=== PATIENT | female | born 1955 | race African-American/Black ===

== ENCOUNTER 2017-08-10 14:11 | Inpatient (IN) | payer MEDICAID ==
[~2017-08-10] VITALS: Ht 152.4 cm; Wt 39.9 kg
[2017-08-10 14:20] VITALS: BP 124/70
--- NOTE | 2017-08-10 14:25 | Emergency Room Report ---
History of Present Illness General Chief Complaint: Dyspnea/Respdistress Source: Patient, EMS Present Illness HPI Patient presents with complaints of shortness of breath Patient reports that she usually uses an oxygen concentrator She was at a facility and reports that someone pulled the plug on the machine Patient became extremely short of breath She was able to get the concentrator into the car however became more short of breath and is brought in by paramedics Patient has long-standing COPD and is on concentrator oxygen on a regular basis denies any chest pain She feels that her breathing is better now Allergies: Coded Allergies: No Known Allergies (Unverified , 08/10/17) Patient History Past Medical History: see triage record Pertinent Family History: none Reviewed Nursing Documentation: PMH: Agreed; PSxH: Agreed Nursing Documentation-PMH Past Medical History: No History, Except For Hx Hypertension: Yes Hx COPD: Yes Review of Systems All Other Systems: negative except mentioned in HPI Physical Exam Vital Signs Date Time Temp Pulse Resp B/P (MAP) Pulse Ox O2 Delivery O2 Flow Rate FiO2 08/10/17 14:06 98.2 60 18 124/70 97 Nasal Cannula 2.0 98.2 Sp02 EP Interpretation: reviewed, normal General Appearance: mild distress - Appeared mildly short of breath Head: normocephalic, atraumatic Eyes: bilateral eye PERRL, bilateral eye EOMI ENT: normal pharynx, no angioedema Neck: supple Respiratory: crackles - Both lower lobes mildly tachypneic Cardiovascular #1: regular rate, rhythm Gastrointestinal: non tender, soft Musculoskeletal: normal inspection Neurologic: alert, oriented x3, responsive Skin: other - Dependent edema bilaterally Lymphatic: no adenopathy Medical Decision Making Diagnostic Impression: Primary Impression: COPD exacerbation ER Course Patient is a fairly complex patient with multiple differential to consideration including but not limited to cardiac cardiopulmonary and vascular emergencies Patient's ABG shows a mildly lower pH Patient is on low-dose oxygen and doing well with the pulse ox oximetry Patient provided with steroids and breathing treatments Continues to do well is asking to eat Patient's repeat ABG shows fully compensated ABG with mildly elevated CO2 compared to previous however the pH is compensated appropriately Patient continues admission at this time awake alert Showing signs of acute COPD exacerbation Labs Test 08/10/17 14:40 08/10/17 14:43 08/10/17 19:06 Arterial Blood pH 7.332 (7.350-7.450) 7.350 (7.350-7.450) Arterial Blood Partial Pressure CO2 71.2 mmHg (35.0-45.0) 77.0 mmHg (35.0-45.0) Arterial Blood Partial Pressure O2 65.9 mmHg (75.0-100.0) 67.9 mmHg (75.0-100.0) Arterial Blood HCO3 36.9 mmol/L (22.0-26.0) 42.0 mmol/L (22.0-26.0) Arterial Blood Oxygen Saturation 91.1 % (92.0-98.0) 92.0 % (92.0-98.0) Arterial Blood Base Excess 9.1 14.2 Adán Test Positive Positive White Blood Count 9.0 K/UL (4.8-10.8) Red Blood Count 4.39 M/UL (4.20-5.40) Hemoglobin 10.2 G/DL (12.0-16.0) Hematocrit 35.8 % (37.0-47.0) Mean Corpuscular Volume 82 FL (80-99) Mean Corpuscular Hemoglobin 23.3 PG (27.0-31.0) Mean Corpuscular Hemoglobin Concent 28.6 G/DL (32.0-36.0) Red Cell Distribution Width 17.6 % (11.6-14.8) Platelet Count 405 K/UL (150-450) Mean Platelet Volume 7.6 FL (6.5-10.1) Neutrophils (%) (Auto) % (45.0-75.0) Lymphocytes (%) (Auto) % (20.0-45.0) Monocytes (%) (Auto) % (1.0-10.0) Eosinophils (%) (Auto) % (0.0-3.0) Basophils (%) (Auto) % (0.0-2.0) Differential Total Cells Counted 100 Neutrophils % (Manual) 91 % (45-75) Lymphocytes % (Manual) 5 % (20-45) Monocytes % (Manual) 3 % (1-10) Eosinophils % (Manual) 0 % (0-3) Basophils % (Manual) 1 % (0-2) Band Neutrophils 0 % (0-8) Platelet Estimate Adequate Platelet Morphology Normal Polychromasia 1+ Hypochromasia 1+ Anisocytosis 1+ Sodium Level 145 MMOL/L (136-145) Potassium Level 4.9 MMOL/L (3.5-5.1) Chloride Level 105 MMOL/L (98-107) Carbon Dioxide Level 37 MMOL/L (21-32) Anion Gap 3 mmol/L (5-15) Blood Urea Nitrogen 22 mg/dL (7-18) Creatinine 0.6 MG/DL (0.55-1.30) Estimat Glomerular Filtration Rate > 60 mL/min (>60) Glucose Level 98 MG/DL (74-106) Calcium Level 9.4 MG/DL (8.5-10.1) Total Bilirubin 0.4 MG/DL (0.2-1.0) Aspartate Amino Transf (AST/SGOT) 44 U/L (15-37) Alanine Aminotransferase (ALT/SGPT) 51 U/L (12-78) Alkaline Phosphatase 180 U/L (46-116) Total Creatine Kinase 157 U/L (26-308) Creatine Kinase MB 7.8 NG/ML (0.0-3.6) Creatine Kinase MB Relative Index 4.9 Troponin I 0.011 ng/mL (0.000-0.056) Pro-B-Type Natriuretic Peptide 618 pg/mL (0-125) Total Protein 7.2 G/DL (6.4-8.2) Albumin 3.9 G/DL (3.4-5.0) Globulin 3.3 g/dL Albumin/Globulin Ratio 1.2 (1.0-2.7) Rhythm Strip Diag. Results EP Interpretation: yes Rate: 66 Rhythm: NSR, no PVC's, no ectopy Chest X-Ray Diagnostic Results Chest X-Ray Diagnostic Results : Chest X-Ray Ordered: Yes # of Views/Limited/Complete: 1 View Indication: Shortness of Breath EP Interpretation: Yes Interpretation: no consolidation, no effusion, no pneumothorax, no acute cardiopulmonary disease - Hyperexpansion Impression: No acute disease - Chronic COPD Electronically Signed by: Eladio Ann DO Last Vital Signs Date Time Temp Pulse Resp B/P (MAP) Pulse Ox O2 Delivery O2 Flow Rate FiO2 08/10/17 14:20 60 18 Nasal Cannula 2.0 08/10/17 14:20 98.2 124/70 97 98.2 Status: improved Disposition: ADMITTED INPATIENT Condition: Serious Eladio Ann DO Aug 10, 2017 14:25
[2017-08-10 15:28] LABS: HEMATOCRIT 35.8 % (37.0-47.0); HEMOGLOBIN 10.2 G/DL (12.0-16.0); MEAN CORPUSCULAR VOLUME 82 FL (80-99); PLATELET COUNT 405 K/UL (150-450); RED BLOOD COUNT 4.39 M/UL (4.20-5.40); RED CELL DISTRIBUTION WIDTH 17.6 % (11.6-14.8)
[2017-08-10 15:42] LABS: ANION GAP 3 mmol/L (5-15); BLOOD UREA NITROGEN 22 mg/dL (7-18); CALCIUM 9.4 MG/DL (8.5-10.1); CARBON DIOXIDE 37 MMOL/L (21-32); CHLORIDE 105 MMOL/L (98-107); CREATININE 0.6 MG/DL (0.55-1.30); POTASSIUM 4.9 MMOL/L (3.5-5.1); SODIUM 145 MMOL/L (136-145)
[2017-08-10 16:01] LABS: ALANINE AMINOTRANSFERASE 51 U/L (12-78); ALBUMIN 3.9 G/DL (3.4-5.0); ALBUMIN/GLOBULIN RATIO 1.2 (1.0-2.7); ALKALINE PHOSPHATASE 180 U/L (46-116); ASPARTATE AMINO TRANSFERASE 44 U/L (15-37); BILIRUBIN,TOTAL 0.4 MG/DL (0.2-1.0); CKMB 7.8 NG/ML (0.0-3.6); CREATINE KINASE 157 U/L (26-308)
--- NOTE | 2017-08-10 16:37 | Diagnostic Imaging Report ---
Indication: Hours of breath Technique: One view of the chest Comparison: none Findings: The lungs and pleural spaces are clear. Heart size is normal. There are bilateral basilar atelectatic changes Impression: No acute process
[2017-08-10] MEDS ORDERED: Enoxaparin 40mg Inj SUBQ SCH (18:00)
--- NOTE | 2017-08-10 18:30 | History and Physical Report ---
DATE OF ADMISSION: 08/10/2017 REASON FOR ADMISSION: 1. Shortness of breath. 2. Chronic obstructive pulmonary disease exacerbation. HISTORY OF PRESENT ILLNESS: The patient is a pleasant, 62-year-old, female, being admitted for further evaluation and care of shortness of breath. She is somnolent, difficult to arouse, speaks in half sentences, and slowly falls asleep. It seems that the patient usually uses an oxygen concentrator. She stays at a facility where someone had pulled the plug on the machine. She became shortly short of breath. She was able to get the concentrate into the car, however, became more short of breath and was brought in by paramedics for further evaluation and care. She has long-standing COPD and is on concentrator oxygen on a regular basis. She is in no overt distress, but somnolent and difficult to arouse, but can be aroused and speaks in slow conversations. No nausea, vomiting, or diarrhea. PAST MEDICAL HISTORY: 1. COPD. 2. Unable to ascertain further as patient is very somnolent. ALLERGIES: No known drug allergies. FAMILY AND SURGICAL HISTORY: Unable to obtain currently as the patient is somnolent. REVIEW OF SYSTEMS: At this time could not obtain as the patient is somnolent and difficult to maintain arousal state. PHYSICAL EXAMINATION: VITAL SIGNS: Blood pressure 124/70, pulse ox 97% on 2 liters nasal cannula. Pulse rate is 60, and temperature 98.2. GENERAL: The patient arousable, but very sedated. HEENT: Extraocular muscles intact. No lymphadenopathy noted. CARDIOVASCULAR: S1 and S2. No rubs or gallops. PULMONARY: Mild upper rhonchi. Fair air movement in all meadows. ABDOMINAL: Nondistended and nontender. EXTREMITIES: 2+ edema, right side greater than left side. LABORATORY AND DIAGNOSTIC DATA: Labs dated 08/10/2017, sodium 145, potassium 4.9, chloride 105, bicarb 37, BUN 22, creatinine 0.6, and calcium 9.4. Troponin 0.011. Hemoglobin 10.2, white cell count 9, platelet count 405. ABG with pH of 7.33, pCO2 of 72, PO2 of 66, HCO3 of 37, O2 saturation of 91. ASSESSMENT AND PLAN: 1. Chronic obstructive pulmonary disease exacerbation with hypercapnic respiratory failure, pCO2 of 71. At this time, BiPAP will be placed. The patient will be admitted to the [facility] and Pulmonary consultation will be placed. Nebulizers will be initiated and further management through Pulmonary Critical Care. 2. Deep venous thrombosis prophylaxis with Lovenox. 3. Asymmetrical lower extremity edema. Ultrasound of her right lower extremity to rule out deep venous thrombosis. 4. We will have to search for home medications and further evaluate the patient's past medical history once patient is more arousable and her medicines can be reconciled in the emergency room. Alvarado Grimm MD DR: JASON JOB#: [id number] CC:
[2017-08-10 18:46] VITALS: BP 108/64
[2017-08-10 19:13] VITALS: BP 150/76
[2017-08-10] MEDS ORDERED: Solu-MEDROL 125mg Inj IVP ONE (19:30)
[2017-08-10] MEDS ORDERED: Albuterol ud Inhalation HHN ONE (19:30)
[2017-08-10 20:33] VITALS: BP 153/69
[2017-08-10] MEDS ORDERED: dilTIAZem HCl CD 120mg cap ORAL ONE (20:45)
[2017-08-10] MEDS: Docusate 100mg cap ORAL SCH (21:00)
[2017-08-10] MEDS ORDERED: dilTIAZem HCl 50mg/10ml Inj IVP ONE (21:13)
[2017-08-10] MEDS ORDERED: dilTIAZem HCl 25mg/5ml Inj IVP ONE (21:15)
[2017-08-10] MEDS ORDERED: Albuterol/Ipratropium 3ml neb HHN SCH (23:00)
[2017-08-10] MEDS ORDERED: Solu-MEDROL 125mg Inj IVP SCH (23:45)
[2017-08-11] VITALS: BP 143/86
[2017-08-11 04:00] VITALS: BP 135/81
[2017-08-11 04:46] LABS: ANION GAP 4 mmol/L (5-15); BLOOD UREA NITROGEN 19 mg/dL (7-18); CALCIUM 8.9 MG/DL (8.5-10.1); CARBON DIOXIDE 36 MMOL/L (21-32); CHLORIDE 105 MMOL/L (98-107); CREATININE 0.8 MG/DL (0.55-1.30); POTASSIUM 4.3 MMOL/L (3.5-5.1); SODIUM 145 MMOL/L (136-145)
[2017-08-11 04:50] LABS: ALANINE AMINOTRANSFERASE 53 U/L (12-78); ALBUMIN 3.6 G/DL (3.4-5.0); ALBUMIN/GLOBULIN RATIO 1.1 (1.0-2.7); ALKALINE PHOSPHATASE 231 U/L (46-116); ASPARTATE AMINO TRANSFERASE 37 U/L (15-37); BILIRUBIN,TOTAL 0.4 MG/DL (0.2-1.0); HEMATOCRIT 34.6 % (37.0-47.0); HEMOGLOBIN 9.9 G/DL (12.0-16.0); MEAN CORPUSCULAR VOLUME 81 FL (80-99); PLATELET COUNT 399 K/UL (150-450); RED BLOOD COUNT 4.28 M/UL (4.20-5.40); RED CELL DISTRIBUTION WIDTH 17.7 % (11.6-14.8); WHITE BLOOD COUNT 7.5 K/UL (4.8-10.8)
[2017-08-11 05:06] LABS: % IRON SATURATION 4 % (15-50); IRON 16 ug/dL (50-175); TOTAL IRON BINDING CAPACITY 385 ug/dL (250-450)
[2017-08-11 05:08] LABS: LACTATE DEHYDROGENASE 379 U/L (81-234)
[2017-08-11 05:17] LABS: INR 0.9 (0.9-1.1)
[2017-08-11] MEDS ORDERED: NORCO 5-325 TA1 EACH ORAL (06:57)
[2017-08-11] MEDS ORDERED: LEVAQUIN750 MG ORAL (06:57)
[2017-08-11] MEDS ORDERED: SPIRIVA18 MCG INH (06:57)
[2017-08-11] MEDS ORDERED: ADVAIR HFA 45-212 GM INH (06:57)
[2017-08-11] MEDS ORDERED: CARDIZEM30 M1 PO (06:57)
[2017-08-11 08:00] VITALS: BP 128/74
--- NOTE | 2017-08-11 08:21 | Nephrology Progress Note ---
Assessment/Plan Assessment/Plan 1. Hypercapneic Resp Failure - likley due to opiates. - PCO2 77, patient declined BiPAP/NIPPV - much more awake today. Off [place]'s 2. COPD- patient declined inhalers, per Pulm eval and mgmt 3. HTN- restart Cardizem CD 4. DVT prophylaxsis with lovenox 5. Disposition- consult pillowcase maker for DC tomorrow with Home Health Subjective Date patient seen: Aug 11, 2017 Time patient seen: 08:17 ROS Limited/Unobtainable: No Respiratory: Reports: shortness of breath Allergies: Coded Allergies: No Known Allergies (Unverified , 08/10/17) All Systems: reviewed and negative except above Subjective Patient declined BiPAp and inhaler therapy Objective Last 24 Hour Vital Signs Date Time Temp Pulse Resp B/P (MAP) Pulse Ox O2 Delivery O2 Flow Rate FiO2 08/11/17 04:00 117 08/11/17 04:00 99.2 118 20 135/81 92 Nasal Cannula 3.0 99.2 08/11/17 00:00 99.5 120 32 143/86 93 Nasal Cannula 3.0 99.5 08/11/17 00:00 120 08/10/17 23:30 112 24 93 Nasal Cannula 2.0 28 08/10/17 23:30 Simple Mask 08/10/17 22:21 112 08/10/17 22:00 Nasal Cannula 2.0 28 08/10/17 22:00 94 Nasal Cannula 2.0 28 08/10/17 21:52 96 24 139/76 93 Nasal Cannula 1.5 08/10/17 21:14 100 152/73 08/10/17 20:50 109 173/97 08/10/17 20:33 112 19 153/69 92 Nasal Cannula 1.5 08/10/17 19:13 112 22 150/76 97 Nasal Cannula 2.0 08/10/17 18:46 97.6 102 20 108/64 95 Nasal Cannula 2.0 97.6 08/10/17 14:20 60 18 Nasal Cannula 2.0 08/10/17 14:20 98.2 82 18 124/70 97 Nasal Cannula 2.0 98.2 08/10/17 14:06 98.2 60 18 124/70 97 Nasal Cannula 2.0 98.2 Intake and Output 08/10/17 08/11/17 19:00 07:00 Intake Total 1243.75 ml Output Total 0 ml 450 ml Balance 0 ml 793.75 ml Intake Oral 700 ml IV Total 543.75 ml Output Urine Total 0 ml 450 ml # Voids 2 # Bowel Movements 3 Laboratory Tests 08/10/17 14:40: Arterial Blood pH 7.332L, Arterial Blood Partial Pressure CO2 71.2*H, Arterial Blood Partial Pressure O2 65.9L, Arterial Blood HCO3 36.9H, Arterial Blood Oxygen Saturation 91.1L, Arterial Blood Base Excess 9.1, Adán Test Positive 08/10/17 14:43: White Blood Count 9.0, Red Blood Count 4.39, Hemoglobin 10.2L, Hematocrit 35.8L , Mean Corpuscular Volume 82, Mean Corpuscular Hemoglobin 23.3L, Mean Corpuscular Hemoglobin Concent 28.6L, Red Cell Distribution Width 17.6H, Platelet Count 405, Mean Platelet Volume 7.6, Neutrophils (%) (Auto) , Lymphocytes (%) (Auto) , Monocytes (%) (Auto) , Eosinophils (%) (Auto) , Basophils (%) (Auto) , Differential Total Cells Counted 100, Neutrophils % ( Manual) 91H, Lymphocytes % (Manual) 5L, Monocytes % (Manual) 3, Eosinophils % ( Manual) 0, Basophils % (Manual) 1, Band Neutrophils 0, Platelet Estimate Adequate, Platelet Morphology Normal, Polychromasia 1+, Hypochromasia 1+, Anisocytosis 1+, Sodium Level 145, Potassium Level 4.9, Chloride Level 105, Carbon Dioxide Level 37H, Anion Gap 3L, Blood Urea Nitrogen 22H, Creatinine 0.6 , Estimat Glomerular Filtration Rate > 60, Glucose Level 98, Calcium Level 9.4, Total Bilirubin 0.4, Aspartate Amino Transf (AST/SGOT) 44H, Alanine Aminotransferase (ALT/SGPT) 51, Alkaline Phosphatase 180H, Total Creatine Kinase 157, Creatine Kinase MB 7.8H, Creatine Kinase MB Relative Index 4.9, Troponin I 0.011, Pro-B-Type Natriuretic Peptide 618H, Total Protein 7.2, Albumin 3.9, Globulin 3.3, Albumin/Globulin Ratio 1.2 08/10/17 19:06: Arterial Blood pH 7.350, Arterial Blood Partial Pressure CO2 77.0*H, Arterial Blood Partial Pressure O2 67.9L, Arterial Blood HCO3 42.0H, Arterial Blood Oxygen Saturation 92.0, Arterial Blood Base Excess 14.2, Adán Test Positive 08/11/17 04:00: White Blood Count 7.5, Red Blood Count 4.28, Hemoglobin 9.9L, Hematocrit 34.6L, Mean Corpuscular Volume 81, Mean Corpuscular Hemoglobin 23.1L, Mean Corpuscular Hemoglobin Concent 28.6L, Red Cell Distribution Width 17.7H, Platelet Count 399 , Mean Platelet Volume 7.4, Neutrophils (%) (Auto) , Lymphocytes (%) (Auto) , Monocytes (%) (Auto) , Eosinophils (%) (Auto) , Basophils (%) (Auto) , Sodium Level 145, Potassium Level 4.3, Chloride Level 105, Carbon Dioxide Level 36H, Anion Gap 4L, Blood Urea Nitrogen 19H, Creatinine 0.8, Estimat Glomerular Filtration Rate > 60, Glucose Level 139H, Calcium Level 8.9, Total Bilirubin 0.4 , Aspartate Amino Transf (AST/SGOT) 37, Alanine Aminotransferase (ALT/SGPT) 53, Alkaline Phosphatase 231H, Pro-B-Type Natriuretic Peptide 574H, Total Protein 6.9, Albumin 3.6, Globulin 3.3, Albumin/Globulin Ratio 1.1, Erythrocyte Sedimentation Rate 10, Reticulocyte Count [Pending], Prothrombin Time 9.9, Prothromb Time International Ratio 0.9, Activated Partial Thromboplast Time 32, Iron Level 16L, Total Iron Binding Capacity 385, Percent Iron Saturation 4L, Unsaturated Iron Binding 369H, Lactate Dehydrogenase 379H, Carcinoembryonic Antigen [Pending], Vitamin B12 Level 941, Folate 14.6, Urine Opiates Screen PositiveH, Urine Barbiturates Screen Negative, Phencyclidine (PCP) Screen Negative, Urine Amphetamines Screen Negative, Urine Benzodiazepines Screen Negative, Urine Cocaine Screen Negative, Urine Marijuana (THC) Screen Negative Height (Feet): 5 Height (Inches): 0.00 Weight (Pounds): 174 General Appearance: no apparent distress, alert EENT: PERRL/EOMI, normal ENT inspection Neck: normal alignment, supple Cardiovascular: regular rhythm, tachycardia Respiratory/Chest: expiratory wheezing Abdomen: non tender, soft Edema: no edema noted Arm (L), no edema noted Arm (R), no edema noted Leg (L), no edema noted Leg (R), no edema noted Pedal (L), no edema noted Pedal (R), no edema noted Generalized Alvarado Grimm M.D. Aug 11, 2017 08:21
[2017-08-11] MEDS: Docusate 100mg cap ORAL SCH ×2 (08:55→21:00)
[2017-08-11] MEDS ORDERED: dilTIAZem HCl 30mg tab ORAL SCH (09:00)
[2017-08-11] MEDS ORDERED: Aspirin Baby 81mg ORAL SCH (09:00)
[2017-08-11] MEDS ORDERED: Advair 100/50 Inhaler - 14 dose INH SCH (09:00)
[2017-08-11 11:56] VITALS: BP 121/72
--- NOTE | 2017-08-11 14:55 | Consultation ---
History of Present Illness General Date patient seen: Aug 11, 2017 Chief Complaint: Dyspnea/Respdistress Present Illness HPI 62 year old female with hx of emphysema, HTN, on chronic home oxygen, presented to ER with complaints of shortness of breath developed suddenly. NO reports of recent fever chills, etc . Allergies: Coded Allergies: No Known Allergies (Unverified , 08/10/17) Medication History Scheduled Diltiazem Hcl* (Cardizem*), 30 MG PO QID, (Reported) Fluticasone/Salmeterol (Advair Hfa 45-21 Mcg Inhaler), 2 PUFFS INH EVERY 12 HOURS, (Reported) Levofloxacin* (Levaquin*), 750 MG ORAL DAILY, (Reported) Tiotropium [place]* (Spiriva*), 1 PUFF INH DAILY, (Reported) Scheduled PRN Hydrocodone Bit/Acetaminophen 5-325* ([place] 5-325*), 1 TAB ORAL Q6H PRN for For Pain, (Reported) Patient History Healthcare decision maker Resuscitation status Full Code Advanced Directive on File Past Medical/Surgical History Past Medical/Surgical History: (1) Chronic respiratory failure (2) Emphysema lung Review of Systems All Other Systems: negative except mentioned in HPI Physical Exam General Appearance: cachetic Lines, tubes and drains: peripheral HEENT: normocephalic, atraumatic Neck: non-tender, normal alignment Respiratory/Chest: chest wall non-tender, lungs clear Cardiovascular/Chest: normal peripheral pulses, normal rate Abdomen: normal bowel sounds Genitourinary/Rectal: normal genital exam Extremities: normal range of motion Last 24 Hour Vital Signs Date Time Temp Pulse Resp B/P (MAP) Pulse Ox O2 Delivery O2 Flow Rate FiO2 08/11/17 11:56 97.3 98 19 121/72 97 Nasal Cannula 3.0 97.3 08/11/17 08:55 118 128/74 08/11/17 08:23 Nasal Cannula 2.0 28 08/11/17 08:20 118 20 95 Nasal Cannula 2.0 28 08/11/17 08:19 Nasal Cannula 2.0 28 08/11/17 08:19 95 Nasal Cannula 2.0 28 08/11/17 08:00 98.1 103 19 128/74 95 Nasal Cannula 3.0 98.1 08/11/17 08:00 116 08/11/17 04:00 117 08/11/17 04:00 99.2 118 20 135/81 92 Nasal Cannula 3.0 99.2 08/11/17 00:00 99.5 120 32 143/86 93 Nasal Cannula 3.0 99.5 08/11/17 00:00 120 08/10/17 23:30 112 24 93 Nasal Cannula 2.0 28 08/10/17 23:30 Simple Mask 08/10/17 22:21 112 08/10/17 22:00 Nasal Cannula 2.0 28 08/10/17 22:00 94 Nasal Cannula 2.0 28 08/10/17 21:52 96 24 139/76 93 Nasal Cannula 1.5 08/10/17 21:14 100 152/73 08/10/17 20:50 109 173/97 08/10/17 20:33 112 19 153/69 92 Nasal Cannula 1.5 08/10/17 19:13 112 22 150/76 97 Nasal Cannula 2.0 08/10/17 18:46 97.6 102 20 108/64 95 Nasal Cannula 2.0 97.6 Intake and Output 08/10/17 08/11/17 19:00 07:00 Intake Total 1243.75 ml Output Total 0 ml 450 ml Balance 0 ml 793.75 ml Intake Oral 700 ml IV Total 543.75 ml Output Urine Total 0 ml 450 ml # Voids 2 # Bowel Movements 3 Laboratory Tests Test 08/10/17 19:06 08/11/17 04:00 Arterial Blood pH 7.350 (7.350-7.450) Arterial Blood Partial Pressure CO2 77.0 mmHg (35.0-45.0) *H Arterial Blood Partial Pressure O2 67.9 mmHg (75.0-100.0) L Arterial Blood HCO3 42.0 mmol/L (22.0-26.0) H Arterial Blood Oxygen Saturation 92.0 % (92.0-98.0) Arterial Blood Base Excess 14.2 Adán Test Positive White Blood Count 7.5 K/UL (4.8-10.8) Red Blood Count 4.28 M/UL (4.20-5.40) Hemoglobin 9.9 G/DL (12.0-16.0) L Hematocrit 34.6 % (37.0-47.0) L Mean Corpuscular Volume 81 FL (80-99) Mean Corpuscular Hemoglobin 23.1 PG (27.0-31.0) L Mean Corpuscular Hemoglobin Concent 28.6 G/DL (32.0-36.0) L Red Cell Distribution Width 17.7 % (11.6-14.8) H Platelet Count 399 K/UL (150-450) Mean Platelet Volume 7.4 FL (6.5-10.1) Neutrophils (%) (Auto) % (45.0-75.0) Lymphocytes (%) (Auto) % (20.0-45.0) Monocytes (%) (Auto) % (1.0-10.0) Eosinophils (%) (Auto) % (0.0-3.0) Basophils (%) (Auto) % (0.0-2.0) Differential Total Cells Counted 100 Neutrophils % (Manual) 91 % (45-75) H Lymphocytes % (Manual) 3 % (20-45) L Monocytes % (Manual) 6 % (1-10) Eosinophils % (Manual) 0 % (0-3) Basophils % (Manual) 0 % (0-2) Band Neutrophils 0 % (0-8) Nucleated Red Blood Cells 2 /100 WBC Platelet Estimate Adequate Platelet Morphology Normal Hypochromasia 2+ Poikilocytosis 1+ Anisocytosis 1+ Erythrocyte Sedimentation Rate 10 MM/HR (0-30) Reticulocyte Count 1.6 % (0.0-2.0) Prothrombin Time 9.9 SEC (9.30-11.50) Prothromb Time International Ratio 0.9 (0.9-1.1) Activated Partial Thromboplast Time 32 SEC (23-33) Sodium Level 145 MMOL/L (136-145) Potassium Level 4.3 MMOL/L (3.5-5.1) Chloride Level 105 MMOL/L (98-107) Carbon Dioxide Level 36 MMOL/L (21-32) H Anion Gap 4 mmol/L (5-15) L Blood Urea Nitrogen 19 mg/dL (7-18) H Creatinine 0.8 MG/DL (0.55-1.30) Estimat Glomerular Filtration Rate > 60 mL/min (>60) Glucose Level 139 MG/DL (74-106) H Calcium Level 8.9 MG/DL (8.5-10.1) Iron Level 16 ug/dL (50-175) L Total Iron Binding Capacity 385 ug/dL (250-450) Percent Iron Saturation 4 % (15-50) L Unsaturated Iron Binding 369 ug/dL (112-346) H Total Bilirubin 0.4 MG/DL (0.2-1.0) Aspartate Amino Transf (AST/SGOT) 37 U/L (15-37) Alanine Aminotransferase (ALT/SGPT) 53 U/L (12-78) Alkaline Phosphatase 231 U/L (46-116) H Lactate Dehydrogenase 379 U/L (81-234) H Pro-B-Type Natriuretic Peptide 574 pg/mL (0-125) H Total Protein 6.9 G/DL (6.4-8.2) Albumin 3.6 G/DL (3.4-5.0) Globulin 3.3 g/dL Albumin/Globulin Ratio 1.1 (1.0-2.7) Carcinoembryonic Antigen Pending Vitamin B12 Level 941 PG/ML (193-986) Folate 14.6 NG/ML (8.6-58.9) Urine Opiates Screen Positive (NEGATIVE) H Urine Barbiturates Screen Negative (NEGATIVE) Phencyclidine (PCP) Screen Negative (NEGATIVE) Urine Amphetamines Screen Negative (NEGATIVE) Urine Benzodiazepines Screen Negative (NEGATIVE) Urine Cocaine Screen Negative (NEGATIVE) Urine Marijuana (THC) Screen Negative (NEGATIVE) Height (Feet): 5 Height (Inches): 0.00 Weight (Pounds): 90 Medications Current Medications Medications (Trade) Dose Ordered Sig/Rochelle Route PRN Reason Start Time Stop Time Status Last Admin Dose Admin Acetaminophen (Tylenol) 650 mg Q4H PRN ORAL Mild Pain (Pain Scale 1-3) 08/11/17 13:15 09/09/17 17:14 Aspirin (ASA) 81 mg DAILY ORAL 08/12/17 09:00 09/10/17 08:59 Dextrose (Dextrose 50%) 25 ml STAT PRN IV Hypoglycemia 08/11/17 11:00 09/09/17 10:59 Dextrose (Dextrose 50%) 50 ml STAT PRN IV Hypoglycemia 08/11/17 11:00 09/09/17 10:59 Diltiazem HCl (Cardizem) 30 mg Q6H ORAL 08/11/17 15:00 09/10/17 14:59 Docusate Sodium (Colace) 100 mg EVERY 12 HOURS ORAL 08/11/17 21:00 09/09/17 20:59 Enoxaparin Sodium (Lovenox) 40 mg Q24H SUBQ 08/11/17 18:00 09/09/17 17:59 Ondansetron HCl (Zofran) 4 mg Q6H PRN IVP Nausea & Vomiting 08/11/17 11:15 09/09/17 17:14 Salmeterol Xinafoate/ Fluticasone (Advair 100/50 Diskus) 1 puffs TWICE A DAY INH 08/11/17 18:00 09/10/17 08:59 Sodium Chloride 1,000 ml @ 75 mls/hr [id number] IVLG 08/11/17 10:15 09/09/17 18:11 08/11/17 10:15 Tiotropium [place] (Spiriva Inhaler) 1 puff DAILY INH 08/12/17 09:00 09/10/17 08:59 Assessment/Plan Problem List: (1) Acute on chronic respiratory failure ICD Codes: J96.20 - Acute and chronic respiratory failure, unspecified whether with hypoxia or hypercapnia SNOMED: 43070426 (2) COPD exacerbation ICD Codes: J44.1 - Chronic obstructive pulmonary disease with (acute) exacerbation SNOMED: 217819893 (3) Toxic metabolic encephalopathy ICD Codes: G92 - Toxic encephalopathy SNOMED: 133094268 (4) Chronic respiratory failure ICD Codes: J96.10 - Chronic respiratory failure, unspecified whether with hypoxia or hypercapnia SNOMED: 32994914 (5) Emphysema lung ICD Codes: J43.9 - Emphysema, unspecified SNOMED: 77145994 Assessment/Plan respiratory treatment titrate fio2 to sat of 92% CT chest to rule out bullous disease, there is hyperlucent area in RML. med/surg dc planning Jakob Hoang MD Aug 11, 2017 14:55
[2017-08-11] MEDS: dilTIAZem HCl 30mg tab ORAL SCH ×2 (15:09→22:08)
[2017-08-11] MEDS: Advair 100/50 Inhaler - 14 dose INH SCH (18:00)
[2017-08-11] MEDS: Enoxaparin 40mg Inj SUBQ SCH (18:49)
[2017-08-12] VITALS: BP 147/89
[2017-08-12] MEDS: dilTIAZem HCl 30mg tab ORAL SCH ×4 (02:56→21:32)
[2017-08-12 04:00] VITALS: BP 144/77
[2017-08-12 08:00] VITALS: BP 153/92
--- NOTE | 2017-08-12 08:04 | Nephrology Progress Note ---
Assessment/Plan Assessment/Plan 1. Hypercapneic Resp Failure - likley due to opiates. Stable, resolved - BiPAP/NIPPV now and recheck ABG - DC tomorrow 2. COPD- per pulm mgmt 3. HTN- Cardizem 4. DVT prophylaxsis with lovenox 5. Disposition- family service caseworker for DC tomorrow Subjective Date patient seen: Aug 12, 2017 Time patient seen: 08:02 ROS Limited/Unobtainable: No Allergies: Coded Allergies: No Known Allergies (Unverified , 08/10/17) All Systems: reviewed and negative except above Subjective Patient much improved. Awake and coherent Objective Last 24 Hour Vital Signs Date Time Temp Pulse Resp B/P (MAP) Pulse Ox O2 Delivery O2 Flow Rate FiO2 08/12/17 07:30 92 Nasal Cannula 2.0 28 08/12/17 07:30 Nasal Cannula 2.0 28 08/12/17 04:00 97.0 92 24 144/77 97 Bi-pap 30 97.0 08/12/17 04:00 84 08/12/17 03:02 93 22 98 Facial 30 08/12/17 02:56 93 138/89 08/12/17 00:00 94 08/12/17 00:00 98.2 96 19 147/89 98 Nasal Cannula 3.0 98.2 08/11/17 22:08 111 144/89 08/11/17 20:17 95 Nasal Cannula 2.0 28 08/11/17 20:17 Nasal Cannula 2.0 28 08/11/17 20:00 93 08/11/17 18:00 95 Nasal Cannula 22.0 28 08/11/17 16:00 83 08/11/17 15:46 Nasal Cannula 2.0 28 08/11/17 15:25 100 20 99 Nasal Cannula 2.0 28 08/11/17 15:09 98 121/72 08/11/17 11:56 97.3 98 19 121/72 97 Nasal Cannula 3.0 97.3 08/11/17 08:55 118 128/74 08/11/17 08:23 Nasal Cannula 2.0 28 08/11/17 08:20 118 20 95 Nasal Cannula 2.0 28 08/11/17 08:19 Nasal Cannula 2.0 28 08/11/17 08:19 95 Nasal Cannula 2.0 28 Intake and Output 08/11/17 08/12/17 18:59 06:59 Intake Total 1320 ml 480 ml Output Total 200 ml 400 ml Balance 1120 ml 80 ml Intake Oral 720 ml 480 ml IV Total 600 ml Output Urine Total 200 ml 400 ml # Voids 1 2 # Bowel Movements 1 Height (Feet): 5 Height (Inches): 0.00 Weight (Pounds): 90 General Appearance: no apparent distress EENT: PERRL/EOMI, normal ENT inspection Neck: normal alignment, supple Cardiovascular: normal rate, regular rhythm Respiratory/Chest: lungs clear, expiratory wheezing Abdomen: non tender, soft Edema: no edema noted Arm (L), no edema noted Arm (R), no edema noted Leg (L), no edema noted Leg (R), no edema noted Pedal (L), no edema noted Pedal (R), no edema noted Generalized Alvarado Grimm M.D. Aug 12, 2017 08:04
[2017-08-12] MEDS ORDERED: Tubing IV Secondary IV ONE (08:29)
[2017-08-12 08:41] LABS: HEMATOCRIT 32.4 % (37.0-47.0); HEMOGLOBIN 9.1 G/DL (12.0-16.0); MEAN CORPUSCULAR VOLUME 81 FL (80-99); PLATELET COUNT 287 K/UL (150-450); RED BLOOD COUNT 3.98 M/UL (4.20-5.40); RED CELL DISTRIBUTION WIDTH 17.4 % (11.6-14.8); WHITE BLOOD COUNT 10.1 K/UL (4.8-10.8)
[2017-08-12 08:54] LABS: ANION GAP 2 mmol/L (5-15); BLOOD UREA NITROGEN 12 mg/dL (7-18); CALCIUM 8.3 MG/DL (8.5-10.1); CARBON DIOXIDE 37 MMOL/L (21-32); CHLORIDE 104 MMOL/L (98-107); CREATININE 0.7 MG/DL (0.55-1.30); POTASSIUM 3.8 MMOL/L (3.5-5.1); SODIUM 143 MMOL/L (136-145)
[2017-08-12] MEDS: Advair 100/50 Inhaler - 14 dose INH SCH ×2 (09:18→18:00)
[2017-08-12] MEDS: Docusate 100mg cap ORAL SCH ×2 (09:26→21:00)
[2017-08-12] MEDS: Aspirin Baby 81mg ORAL SCH (09:26)
--- NOTE | 2017-08-12 11:43 | Pulmonology Progress Note ---
Assessment/Plan Problems: (1) Acute on chronic respiratory failure (2) COPD exacerbation (3) Toxic metabolic encephalopathy (4) Chronic respiratory failure (5) Emphysema lung Respiratory: monitor respiratory rate, adjust FIO2, other - CT chest reviewed Cardiac: continue to monitor HR/BP Renal: F/U I&O, check electrolytes Infectious Disease: continue antibiotics Hematologic: monitor H/H, transfuse if hgb<8.5 Neurologic: keep patient comfortable Time Spent (Minutes): 40 Notes Reviewed: renal Discussed with: nurses, consultants, case packer and sealer Subjective ROS Limited/Unobtainable: No Constitutional: Reports: no symptoms HEENT: Repors: no symptoms Respiratory: Reports: no symptoms Allergies: Coded Allergies: No Known Allergies (Unverified , 08/10/17) Objective Last 24 Hour Vital Signs Date Time Temp Pulse Resp B/P (MAP) Pulse Ox O2 Delivery O2 Flow Rate FiO2 08/12/17 09:26 115 153/92 08/12/17 08:00 110 08/12/17 08:00 98.6 115 20 153/92 95 Nasal Cannula 3.0 98.6 08/12/17 07:30 92 Nasal Cannula 2.0 28 08/12/17 07:30 Nasal Cannula 2.0 28 08/12/17 04:00 97.0 92 24 144/77 97 Bi-pap 30 97.0 08/12/17 04:00 84 08/12/17 03:02 93 22 98 Facial 30 08/12/17 02:56 93 138/89 08/12/17 00:00 94 08/12/17 00:00 98.2 96 19 147/89 98 Nasal Cannula 3.0 98.2 08/11/17 22:08 111 144/89 08/11/17 20:17 95 Nasal Cannula 2.0 28 08/11/17 20:17 Nasal Cannula 2.0 28 08/11/17 20:00 93 08/11/17 18:00 95 Nasal Cannula 22.0 28 08/11/17 16:00 83 08/11/17 15:46 Nasal Cannula 2.0 28 08/11/17 15:25 100 20 99 Nasal Cannula 2.0 28 08/11/17 15:09 98 121/72 08/11/17 11:56 97.3 98 19 121/72 97 Nasal Cannula 3.0 97.3 Intake and Output 08/11/17 08/12/17 19:00 07:00 Intake Total 1245 ml 480 ml Output Total 200 ml 400 ml Balance 1045 ml 80 ml Intake Oral 720 ml 480 ml IV Total 525 ml Output Urine Total 200 ml 400 ml # Voids 1 2 # Bowel Movements 1 General Appearance: WD/WN, no acute distress HEENT: normocephalic Respiratory/Chest: chest wall non-tender, lungs clear Cardiovascular: normal peripheral pulses, normal rate, regular rhythm Abdomen: normal bowel sounds, soft, non tender Genitourinary: normal external genitalia Extremities: no cyanosis Skin: no rash Neurologic/Psychiatric: staff counsel II-XII grossly normal Lymphatic: no neck adenopathy Laboratory Tests 08/12/17 08:15: White Blood Count 10.1, Red Blood Count 3.98L, Hemoglobin 9.1L, Hematocrit 32.4L , Mean Corpuscular Volume 81, Mean Corpuscular Hemoglobin 22.8L, Mean Corpuscular Hemoglobin Concent 28.1L, Red Cell Distribution Width 17.4H, Platelet Count 287, Mean Platelet Volume 6.9, Neutrophils (%) (Auto) , Lymphocytes (%) (Auto) , Monocytes (%) (Auto) , Eosinophils (%) (Auto) , Basophils (%) (Auto) , Differential Total Cells Counted 100, Neutrophils % ( Manual) 86H, Lymphocytes % (Manual) 8L, Monocytes % (Manual) 6, Eosinophils % ( Manual) 0, Basophils % (Manual) 0, Band Neutrophils 0, Platelet Estimate Adequate, Platelet Morphology Normal, Hypochromasia 2+, Anisocytosis 1+, Sodium Level 143, Potassium Level 3.8, Chloride Level 104, Carbon Dioxide Level 37H, Anion Gap 2L, Blood Urea Nitrogen 12, Creatinine 0.7, Estimat Glomerular Filtration Rate > 60, Glucose Level 155H, Calcium Level 8.3L 08/12/17 10:37: Arterial Blood pH 7.293L, Arterial Blood Partial Pressure CO2 95.4*H, Arterial Blood Partial Pressure O2 33.1*L, Arterial Blood HCO3 45.2H, Arterial Blood Oxygen Saturation 56.0L, Arterial Blood Base Excess 15.8, Adán Test Positive Current Medications Medications (Trade) Dose Ordered Sig/Rochelle Route PRN Reason Start Time Stop Time Status Last Admin Dose Admin Acetaminophen (Tylenol) 650 mg Q4H PRN ORAL Mild Pain (Pain Scale 1-3) 08/11/17 13:15 09/09/17 17:14 Albuterol/ Ipratropium (Albuterol/ Ipratropium) 3 ml Q4H PRN HHN Shortness of Breath 08/12/17 11:45 08/17/17 11:44 UNV Aspirin (ASA) 81 mg DAILY ORAL 08/12/17 09:00 09/10/17 08:59 08/12/17 09:26 Dextrose (Dextrose 50%) 25 ml STAT PRN IV Hypoglycemia 08/11/17 11:00 09/09/17 10:59 Dextrose (Dextrose 50%) 50 ml STAT PRN IV Hypoglycemia 08/11/17 11:00 09/09/17 10:59 Diltiazem HCl (Cardizem) 30 mg Q6H ORAL 08/11/17 15:00 09/10/17 14:59 08/12/17 09:26 Docusate Sodium (Colace) 100 mg EVERY 12 HOURS ORAL 08/11/17 21:00 09/09/17 20:59 08/12/17 09:26 Enoxaparin Sodium (Lovenox) 40 mg Q24H SUBQ 08/11/17 18:00 09/09/17 17:59 08/11/17 18:49 Levofloxacin (Levaquin) 250 mg DAILY@1000 ORAL 08/12/17 10:00 08/19/17 09:59 08/12/17 09:26 Ondansetron HCl (Zofran) 4 mg Q6H PRN IVP Nausea & Vomiting 08/11/17 11:15 09/09/17 17:14 Salmeterol Xinafoate/ Fluticasone (Advair 100/50 Diskus) 1 puffs TWICE A DAY INH 08/11/17 18:00 09/10/17 08:59 08/12/17 09:18 Theophylline (Baldemar-Dur) 100 mg DAILY ORAL 08/13/17 09:00 09/12/17 08:59 UNV Tiotropium [place] (Spiriva Inhaler) 1 puff DAILY INH 08/12/17 09:00 09/10/17 08:59 08/12/17 09:18 Jakob Hoang MD Aug 12, 2017 11:43
[2017-08-12] MEDS ORDERED: Albuterol/Ipratropium 3ml neb HHN PRN (11:45)
[2017-08-12 12:00] VITALS: BP 121/83
--- NOTE | 2017-08-12 14:38 | Diagnostic Imaging Report ---
Indication: Shortness of breath Technique: One view of the chest Comparison: 08/10/2017 Findings: And development of slight blunting of left costophrenic angle, could indicate a small pleural effusion. The lungs are clear. The right pleural space is clear. Heart size is normal Impression: Possible small left pleural effusion No acute process otherwise
--- NOTE | 2017-08-12 14:39 | Diagnostic Imaging Report ---
Clinical Indication: Dyspnea Technique: Spiral acquisition obtained through the chest. No IV contrast utilized, per high resolution protocol. Axial 5 x 5 mm slices were reconstructed. Axial 1 mm thick slices were reconstructed using high resolution algorithm at 10 mm intervals. Multiplanar reconstructions generated. Total dose length product 331 mGycm. CTDIvol(s) 9 mGy. Dose reduction achieved using automated exposure control Comparison: none Findings: The lungs are diffusely markedly hyperinflated. No discrete bullae are demonstrated, however. There are small to moderate-sized bilateral pleural effusions. There is some linear atelectasis and/or scarring at both lung bases. Small focus of scarring is seen in the posterior lateral periphery of the left upper lobe. No infiltrates, masses, or nodules are demonstrated. On the high-resolution images, similar findings are evident. No generalized interstitial septal thickening, nodularity, honeycombing, bronchiectasis, or groundglass opacity demonstrated. The heart size is normal. No pericardial effusion. No mediastinal or hilar mass or adenopathy. The pulmonary arteries are ectatic. The included thyroid is not well visualized. There does appear to be a small nodule measuring 15 mm in diameter, off of the lower pole. No axillary or chest wall mass or adenopathy demonstrated The subcutaneous fat and mediastinal fat is diffusely edematous. The bones are unremarkable. The included upper abdominal anatomy demonstrates an unusual protrusion of the posterior dome of the liver. There is generalized edema of the abdominal fat. There is colonic diverticulosis. Hyperattenuating focus in the upper pole of the right kidney could represent a small proteinaceous cyst Impression: Diffusely markedly hyperinflated lungs, consistent with COPD. No generalized interstitial abnormality demonstrated on high-resolution images Negative for infiltrate Bilateral small pleural effusions. Evidence of anasarca elsewhere, with generalized edema of the mediastinal, subcutaneous, and abdominal fat Unusual protrusion posteriorly of the dome of the liver. This could indicate a small Bochdalek hernia into which is herniated a small portion of the liver. Other findings as noted, including colonic diverticulosis, possible small hyperdense upper pole renal cyst The CT scanner at [facility] is accredited by the [employer] and the scans are performed using protocols designed to limit radiation exposure to as low as reasonably achievable to attain images of sufficient resolution adequate for diagnostic evaluation. The CT scanner at [facility] is accredited by the [employer] and the scans are performed using protocols designed to limit radiation exposure to as low as reasonably achievable to attain images of sufficient resolution adequate for diagnostic evaluation.
--- NOTE | 2017-08-12 15:12 | Cardiology Report ---
APPROVED REPORT EKG Measurement Heart [id number] CT [id number] [id number] Normal sinus rhythm Septal infarct, age undetermined T wave abnormality, consider anterior ischemia Abnormal ECG
[2017-08-12 16:02] VITALS: BP 142/87
[2017-08-12] MEDS: Enoxaparin 40mg Inj SUBQ SCH (18:02)
[2017-08-12 20:00] VITALS: BP 147/92
[2017-08-12] MEDS: Iron Sucrose 100 MG in NS 55 ML IVPB SCH (21:41)
[2017-08-12] MEDS: Levalbuterol Inh UD 1.25mg/0.5ml HHN SCH (23:10)
[2017-08-13] VITALS: BP 157/96
[2017-08-13] MEDS: dilTIAZem HCl 30mg tab ORAL SCH ×4 (03:20→21:13)
[2017-08-13 04:00] VITALS: BP 161/91
[2017-08-13 06:36] LABS: ANION GAP 1 mmol/L (5-15); BLOOD UREA NITROGEN 8 mg/dL (7-18); CALCIUM 8.5 MG/DL (8.5-10.1); CHLORIDE 101 MMOL/L (98-107); CREATININE 0.5 MG/DL (0.55-1.30); SODIUM 143 MMOL/L (136-145)
[2017-08-13 06:41] LABS: CARBON DIOXIDE 40 MMOL/L (21-32)
[2017-08-13 08:00] VITALS: BP 146/92
[2017-08-13] MEDS: Levalbuterol Inh UD 1.25mg/0.5ml HHN SCH ×3 (08:48→22:29)
[2017-08-13] MEDS: Aspirin Baby 81mg ORAL SCH ×2 (09:00→09:07)
[2017-08-13] MEDS: Theophylline ER 100mg ORAL SCH (09:07)
[2017-08-13] MEDS: Docusate 100mg cap ORAL SCH ×2 (09:07→21:13)
--- NOTE | 2017-08-13 09:27 | Nephrology Progress Note ---
Assessment/Plan Assessment/Plan 1. Hypercapneic Resp Failure. PCO2 down to 72 - BiPAP. Hold any narcotics - DC to SNF tomorrow 2. COPD- per pulm mgmt 3. HTN- Cardizem 4. DVT prophylaxsis with lovenox 5. Disposition- DC to SNF 6. PSVT- unsustained. On cardizem. Cardiology to evaluate for DC clearance Subjective Date patient seen: Aug 13, 2017 Time patient seen: 09:25 ROS Limited/Unobtainable: No Respiratory: Reports: SOB at rest Allergies: Coded Allergies: No Known Allergies (Unverified , 08/10/17) All Systems: reviewed and negative except above Subjective Patient awake and coherent. Has agreed to SNF Objective Last 24 Hour Vital Signs Date Time Temp Pulse Resp B/P (MAP) Pulse Ox O2 Delivery O2 Flow Rate FiO2 08/13/17 09:07 99 146/92 08/13/17 08:00 98.0 99 19 146/92 96 Bi-pap 30 98.0 08/13/17 07:32 101 20 100 Nasal Cannula 2.0 28 08/13/17 07:25 99 20 Nasal Cannula 2.0 28 08/13/17 07:25 Nasal Cannula 2.0 28 08/13/17 07:25 99 20 98 Nasal Cannula 2.0 28 08/13/17 07:25 98 Nasal Cannula 2.0 28 08/13/17 04:43 81 25 93 Facial 45 08/13/17 04:00 102 08/13/17 04:00 98.2 84 23 161/91 93 Bi-pap 30 98.2 08/13/17 03:20 107 157/96 08/13/17 00:00 99.0 103 22 157/96 91 Nasal Cannula 3.0 99.0 08/13/17 00:00 107 08/12/17 23:22 98 18 98 Nasal Cannula 2.0 28 08/12/17 23:16 102 20 Nasal Cannula 2.0 28 08/12/17 23:14 102 20 96 Nasal Cannula 2.0 28 08/12/17 21:32 93 147/92 08/12/17 20:00 98 08/12/17 20:00 97.9 93 25 147/92 98 Nasal Cannula 3.0 97.9 08/12/17 19:28 98 2.0 28 6/14/18 19:27 Nasal Cannula 2.0 28 08/12/17 19:27 98 Nasal Cannula 2.0 28 08/12/17 16:40 98 18 97 08/12/17 16:02 98.2 92 20 142/87 95 Nasal Cannula 3.0 98.2 08/12/17 16:00 91 08/12/17 15:20 104 121/83 08/12/17 15:19 101 20 98 08/12/17 12:00 98.1 98 20 121/83 96 Nasal Cannula 3.0 98.1 08/12/17 12:00 92 08/12/17 09:26 115 153/92 Intake and Output 08/12/17 08/13/17 19:00 07:00 Intake Total 590 ml Output Total 1100 ml 2150 ml Balance -510 ml -2150 ml Intake Oral 590 ml Output Urine Total 1100 ml 2150 ml Laboratory Tests 08/12/17 10:37: Arterial Blood pH 7.293L, Arterial Blood Partial Pressure CO2 95.4*H, Arterial Blood Partial Pressure O2 33.1*L, Arterial Blood HCO3 45.2H, Arterial Blood Oxygen Saturation 56.0L, Arterial Blood Base Excess 15.8, Aádn Test Positive 08/12/17 14:10: Arterial Blood pH 7.369, Arterial Blood Partial Pressure CO2 72.3*H, Arterial Blood Partial Pressure O2 75.3, Arterial Blood HCO3 40.8H, Arterial Blood Oxygen Saturation 94.1, Arterial Blood Base Excess 13.4, Adán Test Positive 08/13/17 06:00: Sodium Level 143, Potassium Level 4.0, Chloride Level 101, Carbon Dioxide Level 40H, Anion Gap 1L, Blood Urea Nitrogen 8, Creatinine 0.5L, Estimat Glomerular Filtration Rate > 60, Glucose Level 99, Calcium Level 8.5 Height (Feet): 5 Height (Inches): 0.00 Weight (Pounds): 91 General Appearance: WD/WN, no apparent distress EENT: PERRL/EOMI, normal ENT inspection Neck: normal alignment, supple Cardiovascular: normal rate, regular rhythm Respiratory/Chest: expiratory wheezing Edema: no edema noted Arm (L), no edema noted Arm (R), no edema noted Leg (L), no edema noted Leg (R), no edema noted Pedal (L), no edema noted Pedal (R), no edema noted Generalized Alvarado Grimm M.D. Aug 13, 2017 09:27
[2017-08-13 12:00] VITALS: BP 162/102
[2017-08-13] MEDS: Advair 100/50 Inhaler - 14 dose INH SCH ×2 (12:11→22:28)
--- NOTE | 2017-08-13 13:06 | Pulmonology Progress Note ---
Assessment/Plan Problems: (1) Acute on chronic respiratory failure (2) COPD exacerbation (3) Toxic metabolic encephalopathy (4) Chronic respiratory failure (5) Emphysema lung Assessment/Plan continue respiratory treatment on theophylline social service consult Subjective ROS Limited/Unobtainable: No Interval Events: still short of breath Constitutional: Reports: no symptoms Respiratory: Reports: no symptoms Allergies: Coded Allergies: No Known Allergies (Unverified , 08/10/17) Objective Last 24 Hour Vital Signs Date Time Temp Pulse Resp B/P (MAP) Pulse Ox O2 Delivery O2 Flow Rate FiO2 08/13/17 12:00 100 08/13/17 12:00 98.1 109 17 162/102 98 Bi-pap 30 98.1 08/13/17 09:07 99 146/92 08/13/17 08:00 98.0 99 19 146/92 96 Bi-pap 30 98.0 08/13/17 08:00 85 08/13/17 07:32 101 20 100 Nasal Cannula 2.0 28 08/13/17 07:25 99 20 Nasal Cannula 2.0 28 08/13/17 07:25 Nasal Cannula 2.0 28 08/13/17 07:25 99 20 98 Nasal Cannula 2.0 28 08/13/17 07:25 98 Nasal Cannula 2.0 28 08/13/17 04:43 81 25 93 Facial 45 08/13/17 04:00 102 08/13/17 04:00 98.2 84 23 161/91 93 Bi-pap 30 98.2 08/13/17 03:20 107 157/96 08/13/17 00:00 99.0 103 22 157/96 91 Nasal Cannula 3.0 99.0 08/13/17 00:00 107 08/12/17 23:22 98 18 98 Nasal Cannula 2.0 28 08/12/17 23:16 102 20 Nasal Cannula 2.0 28 08/12/17 23:14 102 20 96 Nasal Cannula 2.0 28 08/12/17 21:32 93 147/92 08/12/17 20:00 98 08/12/17 20:00 97.9 93 25 147/92 98 Nasal Cannula 3.0 97.9 08/12/17 19:28 98 2.0 28 08/12/17 19:27 Nasal Cannula 2.0 28 08/12/17 19:27 98 Nasal Cannula 2.0 28 08/12/17 16:40 98 18 97 08/12/17 16:02 98.2 92 20 142/87 95 Nasal Cannula 3.0 98.2 08/12/17 16:00 91 08/12/17 15:20 104 121/83 08/12/17 15:19 101 20 98 Intake and Output 08/12/17 08/13/17 19:00 07:00 Intake Total 590 ml Output Total 1100 ml 2150 ml Balance -510 ml -2150 ml Intake Oral 590 ml Output Urine Total 1100 ml 2150 ml General Appearance: cachetic HEENT: normocephalic, atraumatic Respiratory/Chest: chest wall non-tender, decreased breath sounds Breasts: no masses Cardiovascular: normal peripheral pulses Abdomen: normal bowel sounds, soft, non tender Skin: no rash Microbiology Date/Time Source Procedure Growth Status 08/10/17 20:23 Nasal Nares MRSA Culture - Final NO METHICILLIN RESISTANT STAPH AUREUS... Complete 08/10/17 20:23 Rectum VRE Culture - Final Enterococcus Faecalis - Vre Complete Laboratory Tests 08/12/17 14:10: Arterial Blood pH 7.369, Arterial Blood Partial Pressure CO2 72.3*H, Arterial Blood Partial Pressure O2 75.3, Arterial Blood HCO3 40.8H, Arterial Blood Oxygen Saturation 94.1, Arterial Blood Base Excess 13.4, Adán Test Positive 08/13/17 06:00: Sodium Level 143, Potassium Level 4.0, Chloride Level 101, Carbon Dioxide Level 40H, Anion Gap 1L, Blood Urea Nitrogen 8, Creatinine 0.5L, Estimat Glomerular Filtration Rate > 60, Glucose Level 99, Calcium Level 8.5 Current Medications Medications (Trade) Dose Ordered Sig/Rochelle Route PRN Reason Start Time Stop Time Status Last Admin Dose Admin Acetaminophen (Tylenol) 650 mg Q4H PRN ORAL Mild Pain (Pain Scale 1-3) 08/11/17 13:15 09/09/17 17:14 08/12/17 21:52 Albuterol/ Ipratropium (Albuterol/ Ipratropium) 3 ml Q4H PRN HHN Shortness of Breath 08/12/17 11:45 08/17/17 11:44 Aspirin (ASA) 81 mg DAILY ORAL 08/12/17 09:00 09/10/17 08:59 08/12/17 09:26 Dextrose (Dextrose 50%) 25 ml STAT PRN IV Hypoglycemia 08/11/17 11:00 09/09/17 10:59 Dextrose (Dextrose 50%) 50 ml STAT PRN IV Hypoglycemia 08/11/17 11:00 09/09/17 10:59 Diltiazem HCl (Cardizem) 30 mg Q6H ORAL 08/11/17 15:00 09/10/17 14:59 08/13/17 09:07 Docusate Sodium (Colace) 100 mg EVERY 12 HOURS ORAL 08/11/17 21:00 09/09/17 20:59 08/13/17 09:07 Enoxaparin Sodium (Lovenox) 40 mg Q24H SUBQ 08/11/17 18:00 09/09/17 17:59 08/12/17 18:02 Iron Sucrose 100 mg/Sodium Chloride 60 ml @ 240 mls/hr BEDTIME IVPB 08/12/17 21:00 08/16/17 21:14 08/12/17 21:41 Levalbuterol HCl (Xopenex) 1.25 mg Q8HRT HHN 08/12/17 23:00 08/17/17 22:59 08/13/17 08:48 Levofloxacin (Levaquin) 250 mg DAILY@1000 ORAL 08/12/17 10:00 08/19/17 09:59 08/13/17 09:48 Ondansetron HCl (Zofran) 4 mg Q6H PRN IVP Nausea & Vomiting 08/11/17 11:15 09/09/17 17:14 08/12/17 21:25 Salmeterol Xinafoate/ Fluticasone (Advair 100/50 Diskus) 1 puffs TWICE A DAY INH 08/11/17 18:00 09/10/17 08:59 08/13/17 12:11 Theophylline (Baldemar-Dur) 100 mg DAILY ORAL 08/13/17 09:00 09/12/17 08:59 08/13/17 09:07 Tiotropium [place] (Spiriva Inhaler) 1 puff DAILY INH 08/12/17 09:00 09/10/17 08:59 08/13/17 12:12 Jakob Hoang MD Aug 13, 2017 13:06
[2017-08-13] MEDS ORDERED: Sucralfate 1gm tab ORAL SCH (13:30)
--- NOTE | 2017-08-13 14:52 | Cardiac Electrophysiology PN ---
Subjective Subjective [id number] Objective Last 24 Hour Vital Signs Date Time Temp Pulse Resp B/P (MAP) Pulse Ox O2 Delivery O2 Flow Rate FiO2 08/13/17 13:48 96 22 Nasal Cannula 2.0 28 08/13/17 12:00 100 08/13/17 12:00 98.1 109 17 162/102 98 Bi-pap 30 98.1 08/13/17 09:07 99 146/92 08/13/17 08:00 98.0 99 19 146/92 96 Bi-pap 30 98.0 08/13/17 08:00 85 08/13/17 07:32 101 20 100 Nasal Cannula 2.0 28 08/13/17 07:25 99 20 Nasal Cannula 2.0 28 08/13/17 07:25 Nasal Cannula 2.0 28 08/13/17 07:25 99 20 98 Nasal Cannula 2.0 28 08/13/17 07:25 98 Nasal Cannula 2.0 28 08/13/17 04:43 81 25 93 Facial 45 08/13/17 04:00 102 08/13/17 04:00 98.2 84 23 161/91 93 Bi-pap 30 98.2 08/13/17 03:20 107 157/96 08/13/17 00:00 99.0 103 22 157/96 91 Nasal Cannula 3.0 99.0 08/13/17 00:00 107 08/12/17 23:22 98 18 98 Nasal Cannula 2.0 28 08/12/17 23:16 102 20 Nasal Cannula 2.0 28 08/12/17 23:14 102 20 96 Nasal Cannula 2.0 28 08/12/17 21:32 93 147/92 08/12/17 20:00 98 08/12/17 20:00 97.9 93 25 147/92 98 Nasal Cannula 3.0 97.9 08/12/17 19:28 98 2.0 28 08/12/17 19:27 Nasal Cannula 2.0 28 08/12/17 19:27 98 Nasal Cannula 2.0 28 08/12/17 16:40 98 18 97 08/12/17 16:02 98.2 92 20 142/87 95 Nasal Cannula 3.0 98.2 08/12/17 16:00 91 08/12/17 15:20 104 121/83 08/12/17 15:19 101 20 98 Intake and Output 08/12/17 08/13/17 19:00 07:00 Intake Total 590 ml Output Total 1100 ml 2150 ml Balance -510 ml -2150 ml Intake Oral 590 ml Output Urine Total 1100 ml 2150 ml Laboratory Tests Test 08/13/17 06:00 Sodium Level 143 MMOL/L (136-145) Potassium Level 4.0 MMOL/L (3.5-5.1) Chloride Level 101 MMOL/L (98-107) Carbon Dioxide Level 40 MMOL/L (21-32) H Anion Gap 1 mmol/L (5-15) L Blood Urea Nitrogen 8 mg/dL (7-18) Creatinine 0.5 MG/DL (0.55-1.30) L Estimat Glomerular Filtration Rate > 60 mL/min (>60) Glucose Level 99 MG/DL (74-106) Calcium Level 8.5 MG/DL (8.5-10.1) Microbiology Date/Time Source Procedure Growth Status 08/10/17 20:23 Nasal Nares MRSA Culture - Final NO METHICILLIN RESISTANT STAPH AUREUS... Complete 08/10/17 20:23 Rectum VRE Culture - Final Enterococcus Faecalis - Vre Complete Fam Smart MD Aug 13, 2017 14:52
[2017-08-13 16:00] VITALS: BP 149/91
[2017-08-13] MEDS: Norco 5mg/325mg tab ORAL PRN ×2 (17:44→22:59)
[2017-08-13] MEDS: Sucralfate 1gm tab ORAL SCH ×3 (17:44→21:14)
[2017-08-13] MEDS: Enoxaparin 40mg Inj SUBQ SCH (17:57)
--- NOTE | 2017-08-13 19:45 | Consultation ---
DATE OF CONSULTATION: 08/13/2017 CARDIOLOGY CONSULTATION CONSULTING PHYSICIAN: Fam Smart M.D. REFERRING PHYSICIAN: Brett Saleh M.D. REASON FOR CONSULTATION: Supraventricular tachycardia. HISTORY OF PRESENT ILLNESS: The patient is a 62-year-old lady with history of hypertension and chronic obstructive pulmonary disease, who was brought to the hospital for increasing shortness of breath. The patient uses his oxygen concentrator at the facility where someone pulled the plug in the machine and she became acutely short of breath. The patient came to the emergency room, was admitted, and after nebulizer treatment, had episodes of supraventricular tachycardia at the rate of up to 200 beats per minute. Cardiac electrophysiology consultation was obtained for further evaluation and management. PAST MEDICAL HISTORY: 1. Hypertension. 2. Chronic obstructive pulmonary disease. MEDICATIONS: Per reconciliation. ALLERGIES: She has no known drug allergies. FAMILY HISTORY: Noncontributory. REVIEW OF SYSTEMS: Negative other than what is mentioned in the history of present illness. PHYSICAL EXAMINATION: VITAL SIGNS: Blood pressure is 162/100, pulse is 100, respirations 18, and temperature 98.1. HEAD AND NECK: Showed no JVD. LUNGS: Coarse rhonchi bilaterally. CARDIOVASCULAR: Shows regular S1 and S2 with no gallop. ABDOMEN: Soft. EXTREMITIES: No pitting edema. DIAGNOSTIC DATA: Her EKG showed sinus rhythm with anterior T-wave inversion suggestive of ischemia. Her telemetry strip shows supraventricular tachycardia at the rate of up to 200 beats per minute. LABORATORY DATA: Labs show white count of 10, hemoglobin 9.1, hematocrit 32.4, and platelet count is 287,000. Sodium 142, potassium 4.0, BUN of 8, and creatinine 0.5. Her urine toxicology is positive for opiates. ASSESSMENT AND PLAN: 1. Supraventricular tachycardia with the heart rate up to 200. This was after nebulizer treatment. I will start the patient on Cardizem 30 mg every 6 hours. Continue to watch the patient on telemetry. We will also get an echocardiogram to evaluate for ejection fraction and wall motion abnormality. 2. Anterior T-wave inversion. The patient does not have any chest pain, however, this is suggestive of ischemia and we will completely rule out myocardial infarction protocol and get an echocardiogram to rule out for ejection fraction and wall motion abnormality. 3. Chronic obstructive pulmonary disease exacerbation. On theophylline, albuterol, and Levaquin. Thank you very much, Dr. Saleh, for allowing me to participate in the care of this patient. Please do not hesitate to contact me for any questions regarding my evaluation. Fam Smart M.D. DR: XIAO JOB#: [id number] CC:
[2017-08-13 20:00] VITALS: BP 135/92
[2017-08-13] MEDS: Iron Sucrose 100 MG in NS 55 ML IVPB SCH (21:13)
[2017-08-14] VITALS: BP 124/86
[2017-08-14] MEDS: dilTIAZem HCl 30mg tab ORAL SCH ×4 (02:33→22:34)
[2017-08-14 04:00] VITALS: BP 135/88
[2017-08-14 04:57] LABS: BLOOD UREA NITROGEN 13 mg/dL (7-18); CALCIUM 8.8 MG/DL (8.5-10.1); CREATININE 0.6 MG/DL (0.55-1.30); POTASSIUM 4.2 MMOL/L (3.5-5.1)
[2017-08-14 06:00] LABS: ANION GAP 4 mmol/L (5-15); CARBON DIOXIDE 38 MMOL/L (21-32); CHLORIDE 101 MMOL/L (98-107); SODIUM 143 MMOL/L (136-145)
[2017-08-14 08:00] VITALS: BP 134/82
[2017-08-14] MEDS: Levalbuterol Inh UD 1.25mg/0.5ml HHN SCH ×2 (08:04→16:06)
[2017-08-14] MEDS: Docusate 100mg cap ORAL SCH ×3 (09:00→22:34)
--- NOTE | 2017-08-14 09:07 | Nephrology Progress Note ---
Assessment/Plan Assessment/Plan 1. Hypercapneic Resp Failure. Stable, patient at baseline - BiPAP. Hold any narcotics. Tylenol and Ultram only. Patient threatening AMA if [place] not given, the option is available to her if she is so inclined - DC to SNF when possible with Hospice if she agrees 2. End Stage COPD- per pulm mgmt + hospice 3. HTN- Cardizem 4. DVT prophylaxsis with lovenox 5. Disposition- DC to SNF 6. PSVT- unsustained. On cardizem. Resolved Subjective Date patient seen: Aug 14, 2017 Time patient seen: 09:04 ROS Limited/Unobtainable: No Allergies: Coded Allergies: No Known Allergies (Unverified , 08/10/17) All Systems: reviewed and negative except above Subjective Patient awake and coherent. In no obvious pain. Objective Last 24 Hour Vital Signs Date Time Temp Pulse Resp B/P (MAP) Pulse Ox O2 Delivery O2 Flow Rate FiO2 08/14/17 08:02 103 18 100 Nasal Cannula 2.0 28 08/14/17 07:50 Nasal Cannula 2.0 28 08/14/17 07:50 96 Nasal Cannula 2.0 28 08/14/17 07:50 101 18 96 Nasal Cannula 2.0 28 08/14/17 04:00 97.0 91 16 135/88 98 97.0 08/14/17 04:00 125 08/14/17 02:33 111 135/92 08/14/17 00:55 111 15 99 Facial 30 08/14/17 00:13 99.0 08/14/17 00:00 97.1 131 16 124/86 100 97.1 08/13/17 23:25 114 20 96 Facial 45 08/13/17 22:39 96 18 100 Nasal Cannula 2.0 28 08/13/17 22:32 107 18 96 Nasal Cannula 2.0 28 08/13/17 21:13 107 135/92 08/13/17 21:00 Nasal Cannula 2.0 28 08/13/17 21:00 94 Nasal Cannula 2.0 28 08/13/17 20:00 107 08/13/17 20:00 99.0 112 20 135/92 94 99.0 08/13/17 16:00 124 08/13/17 16:00 97.9 98 18 149/91 96 Bi-pap 30 97.9 08/13/17 15:21 104 18 98 Nasal Cannula 2.0 28 08/13/17 15:15 97 18 97 Nasal Cannula 2.0 28 08/13/17 15:10 96 162/102 08/13/17 13:48 96 22 Nasal Cannula 2.0 28 08/13/17 12:00 100 08/13/17 12:00 98.1 109 17 162/102 98 Bi-pap 30 98.1 08/13/17 09:07 99 146/92 Intake and Output 08/13/17 08/14/17 19:00 07:00 Intake Total 1000 ml 240 ml Balance 1000 ml 240 ml Intake Oral 240 ml Other 1000 ml # Voids 5 Laboratory Tests 08/13/17 18:47: Troponin I 0.000 08/14/17 03:23: Troponin I 0.017, Sodium Level 143, Potassium Level 4.2, Chloride Level 101, Carbon Dioxide Level 38H, Anion Gap 4L, Blood Urea Nitrogen 13, Creatinine 0.6, Estimat Glomerular Filtration Rate > 60, Glucose Level 107H, Calcium Level 8.8, Pro-B-Type Natriuretic Peptide 212H Height (Feet): 5 Height (Inches): 0.00 Weight (Pounds): 86 General Appearance: no apparent distress, alert EENT: normal ENT inspection Neck: normal alignment, supple Cardiovascular: normal rate, regular rhythm Respiratory/Chest: expiratory wheezing Edema: no edema noted Arm (L), no edema noted Arm (R), no edema noted Leg (L), no edema noted Leg (R), no edema noted Pedal (L), no edema noted Pedal (R), no edema noted Generalized Alvarado Grimm M.D. Aug 14, 2017 09:07
[2017-08-14] MEDS: Sucralfate 1gm tab ORAL SCH ×4 (09:19→22:34)
[2017-08-14] MEDS: Theophylline ER 100mg ORAL SCH (09:20)
[2017-08-14] MEDS: Advair 100/50 Inhaler - 14 dose INH SCH ×2 (09:57→18:00)
[2017-08-14] MEDS ORDERED: traMADol 50mg tab ORAL PRN (10:00)
--- NOTE | 2017-08-14 11:31 | Pulmonology Progress Note ---
Assessment/Plan Problems: (1) Acute on chronic respiratory failure (2) COPD exacerbation (3) Toxic metabolic encephalopathy (4) Chronic respiratory failure (5) Emphysema lung Assessment/Plan better no new complains continue respiratory treatment on theophylline social service consult Subjective ROS Limited/Unobtainable: No Constitutional: Reports: no symptoms HEENT: Repors: no symptoms Allergies: Coded Allergies: No Known Allergies (Unverified , 08/10/17) Objective Last 24 Hour Vital Signs Date Time Temp Pulse Resp B/P (MAP) Pulse Ox O2 Delivery O2 Flow Rate FiO2 08/14/17 10:18 97.9 08/14/17 09:19 92 134/82 08/14/17 08:02 103 18 100 Nasal Cannula 2.0 28 08/14/17 08:00 97.9 92 20 134/82 98 Nasal Cannula 3.0 97.9 08/14/17 08:00 99 08/14/17 07:50 Nasal Cannula 2.0 28 08/14/17 07:50 96 Nasal Cannula 2.0 28 08/14/17 07:50 101 18 96 Nasal Cannula 2.0 28 08/14/17 04:00 97.0 91 16 135/88 98 97.0 08/14/17 04:00 125 08/14/17 02:33 111 135/92 08/14/17 00:55 111 15 99 Facial 30 08/14/17 00:13 99.0 08/14/17 00:00 97.1 131 16 124/86 100 97.1 08/13/17 23:25 114 20 96 Facial 45 08/13/17 22:39 96 18 100 Nasal Cannula 2.0 28 08/13/17 22:32 107 18 96 Nasal Cannula 2.0 28 08/13/17 21:13 107 135/92 08/13/17 21:00 Nasal Cannula 2.0 28 08/13/17 21:00 94 Nasal Cannula 2.0 28 08/13/17 20:00 107 08/13/17 20:00 99.0 112 20 135/92 94 99.0 08/13/17 16:00 124 08/13/17 16:00 97.9 98 18 149/91 96 Bi-pap 30 97.9 08/13/17 15:21 104 18 98 Nasal Cannula 2.0 28 08/13/17 15:15 97 18 97 Nasal Cannula 2.0 28 08/13/17 15:10 96 162/102 08/13/17 13:48 96 22 Nasal Cannula 2.0 28 08/13/17 12:00 100 08/13/17 12:00 98.1 109 17 162/102 98 Bi-pap 30 98.1 Intake and Output 08/13/17 08/14/17 19:00 07:00 Intake Total 1000 ml 240 ml Balance 1000 ml 240 ml Intake Oral 240 ml Other 1000 ml # Voids 5 General Appearance: WD/WN HEENT: normocephalic, atraumatic Respiratory/Chest: chest wall non-tender, lungs clear Breasts: no masses Cardiovascular: normal peripheral pulses Abdomen: normal bowel sounds, soft, non tender Genitourinary: normal external genitalia Skin: no rash Neurologic/Psychiatric: brand specialist II-XII grossly normal Laboratory Tests 08/13/17 18:47: Troponin I 0.000 08/14/17 03:23: Troponin I 0.017, Sodium Level 143, Potassium Level 4.2, Chloride Level 101, Carbon Dioxide Level 38H, Anion Gap 4L, Blood Urea Nitrogen 13, Creatinine 0.6, Estimat Glomerular Filtration Rate > 60, Glucose Level 107H, Calcium Level 8.8, Pro-B-Type Natriuretic Peptide 212H Current Medications Medications (Trade) Dose Ordered Sig/Rochelle Route PRN Reason Start Time Stop Time Status Last Admin Dose Admin Acetaminophen (Tylenol) 650 mg Q4H PRN ORAL Mild Pain (Pain Scale 1-3) 08/11/17 13:15 09/09/17 17:14 08/12/17 21:52 Albuterol/ Ipratropium (Albuterol/ Ipratropium) 3 ml Q4H PRN HHN Shortness of Breath 08/12/17 11:45 08/17/17 11:44 Dextrose (Dextrose 50%) 25 ml STAT PRN IV Hypoglycemia 08/11/17 11:00 09/09/17 10:59 Dextrose (Dextrose 50%) 50 ml STAT PRN IV Hypoglycemia 08/11/17 11:00 09/09/17 10:59 Diltiazem HCl (Cardizem) 30 mg Q6H ORAL 08/11/17 15:00 09/10/17 14:59 08/14/17 09:19 Docusate Sodium (Colace) 100 mg EVERY 12 HOURS ORAL 08/11/17 21:00 09/09/17 20:59 08/13/17 21:13 Enoxaparin Sodium (Lovenox) 40 mg Q24H SUBQ 08/11/17 18:00 09/09/17 17:59 08/12/17 18:02 Iron Sucrose 100 mg/Sodium Chloride 60 ml @ 240 mls/hr BEDTIME IVPB 08/12/17 21:00 08/16/17 21:14 08/13/17 21:13 Levalbuterol HCl (Xopenex) 1.25 mg Q8HRT HHN 08/12/17 23:00 08/17/17 22:59 08/14/17 08:04 Levofloxacin (Levaquin) 250 mg DAILY@1000 ORAL 08/12/17 10:00 08/19/17 09:59 08/14/17 09:20 Ondansetron HCl (Zofran) 4 mg Q6H PRN IVP Nausea & Vomiting 08/11/17 11:15 09/09/17 17:14 08/14/17 09:20 Salmeterol Xinafoate/ Fluticasone (Advair 100/50 Diskus) 1 puffs TWICE A DAY INH 08/11/17 18:00 09/10/17 08:59 08/14/17 09:57 Sucralfate (Carafate) 1 gm FOUR TIMES A DAY ORAL 08/13/17 18:00 09/12/17 17:59 08/14/17 09:19 Theophylline (Baldemar-Dur) 100 mg DAILY ORAL 08/13/17 09:00 09/12/17 08:59 08/14/17 09:20 Tiotropium [place] (Spiriva Inhaler) 1 puff DAILY INH 08/12/17 09:00 09/10/17 08:59 08/14/17 09:57 Tramadol HCl (Ultram) 50 mg Q6H PRN ORAL Moderate Pain (Pain Scale 4-6) 08/14/17 10:00 08/21/17 09:59 08/14/17 09:19 Jakob Hoang MD Aug 14, 2017 11:31
--- NOTE | 2017-08-14 11:32 | Cardiology Report ---
APPROVED REPORT EXAM: Two-dimensional and M-mode echocardiogram with Doppler and color Doppler. INDICATION Chest Pain M-Mode DIMENSIONS IVSd0.9 (0.7-1.1cm)Left Atrium (MM)3.2 (1.6-4.0cm) LVDd2.9 (3.5-5.6cm)Aortic Root3.0 (2.0-3.7cm) PWd0.9 (0.7-1.1cm)Aortic Cusp Exc.1.7 (1.5-2.0cm) LVDs0.8 (2.5-4.0cm) PWs2.0 cm Normal left ventricular chamber size, systolic function and wall motion. Left ventricular ejection fraction estimated to be 65-70 %. No evidence of left ventricular hypertrophy. No evidence of pericardial effusion All other cardiac chamber sizes are within normal limits. Mild focal aortic valve sclerosis with adequate cusp excursion. Mildly thickened mitral valve leaflets with normal excursion. Mild mitral annulus and aortic root calcification. Normal pulmonic valve structure. Normal tricuspid valve structure. IVC dilated at 1.8 cm with physiological collapse, suggestive of increased RA pressure. A color flow and spectral Doppler study was performed and revealed: No aortic insufficiency. No mitral regurgitation. Mitral diastolic velocities suggest mild left ventricular diastolic dysfunction (Grade I). Mild tricuspid regurgitation. Tricuspid systolic velocities suggests peak right ventricular systolic pressure of 84 mmHg, consistent with severe pulmonary hypertension. Mild pulmonic regurgitation present.
[2017-08-14 12:00] VITALS: BP 125/70
[2017-08-14] MEDS ORDERED: Albuterol/Ipratropium 3ml neb HHN PRN (14:00)
[2017-08-14 16:00] VITALS: BP 137/87
[2017-08-14] MEDS: traMADol 50mg tab ORAL PRN ×2 (16:35→22:36)
[2017-08-14] MEDS: Enoxaparin 40mg Inj SUBQ SCH (17:16)
--- NOTE | 2017-08-14 17:53 | Cardiac Electrophysiology PN ---
Assessment/Plan Assessment/Plan 1. Supraventricular tachycardia with the heart rate up to 200. This was after nebulizer treatment. No recurrence on Cardizem 30 mg every 6 hours. Echocardiogram EF 65% 2. Anterior T-wave inversion. The patient does not have any chest pain, Completely ruled out foir myocardial infarction 3. Chronic obstructive pulmonary disease exacerbation. On theophylline, albuterol, and Levaquin. Subjective Subjective Just transferred to nonmonitored bed.Off BIPAP while having dinner Objective Last 24 Hour Vital Signs Date Time Temp Pulse Resp B/P (MAP) Pulse Ox O2 Delivery O2 Flow Rate FiO2 08/14/17 16:15 100 18 99 Nasal Cannula 2.0 28 08/14/17 16:07 99 18 97 Nasal Cannula 2.0 28 08/14/17 16:00 97.9 96 20 137/87 98 Nasal Cannula 2.0 97.9 08/14/17 15:53 105 15 98 Facial 30 08/14/17 15:10 100 125/70 08/14/17 12:00 97.2 100 20 125/70 97 97.2 08/14/17 10:18 97.9 08/14/17 09:19 92 134/82 08/14/17 08:02 103 18 100 Nasal Cannula 2.0 28 08/14/17 08:00 97.9 92 20 134/82 98 Nasal Cannula 3.0 97.9 08/14/17 08:00 99 08/14/17 07:50 Nasal Cannula 2.0 28 08/14/17 07:50 96 Nasal Cannula 2.0 28 08/14/17 07:50 101 18 96 Nasal Cannula 2.0 28 08/14/17 04:00 97.0 91 16 135/88 98 97.0 08/14/17 04:00 125 08/14/17 02:33 111 135/92 08/14/17 00:55 111 15 99 Facial 30 08/14/17 00:13 99.0 08/14/17 00:00 97.1 131 16 124/86 100 97.1 08/13/17 23:25 114 20 96 Facial 45 08/13/17 22:39 96 18 100 Nasal Cannula 2.0 28 08/13/17 22:32 107 18 96 Nasal Cannula 2.0 28 08/13/17 21:13 107 135/92 08/13/17 21:00 Nasal Cannula 2.0 28 08/13/17 21:00 94 Nasal Cannula 2.0 28 08/13/17 20:00 107 08/13/17 20:00 99.0 112 20 135/92 94 99.0 Intake and Output 08/13/17 08/14/17 19:00 07:00 Intake Total 1000 ml 240 ml Balance 1000 ml 240 ml Intake Oral 240 ml Other 1000 ml # Voids 5 Laboratory Tests Test 08/13/17 18:47 08/14/17 03:23 Troponin I 0.000 ng/mL (0.000-0.056) 0.017 ng/mL (0.000-0.056) Sodium Level 143 MMOL/L (136-145) Potassium Level 4.2 MMOL/L (3.5-5.1) Chloride Level 101 MMOL/L (98-107) Carbon Dioxide Level 38 MMOL/L (21-32) H Anion Gap 4 mmol/L (5-15) L Blood Urea Nitrogen 13 mg/dL (7-18) Creatinine 0.6 MG/DL (0.55-1.30) Estimat Glomerular Filtration Rate > 60 mL/min (>60) Glucose Level 107 MG/DL (74-106) H Calcium Level 8.8 MG/DL (8.5-10.1) Pro-B-Type Natriuretic Peptide 212 pg/mL (0-125) H Objective HEAD AND NECK: Showed no JVD. LUNGS: Coarse rhonchi bilaterally. CARDIOVASCULAR: Shows regular S1 and S2 with no gallop. ABDOMEN: Soft. EXTREMITIES: No pitting edema. Fam Smart MD Aug 14, 2017 17:53
[2017-08-14 20:00] VITALS: BP 111/72
[2017-08-14] MEDS: Iron Sucrose 100 MG in NS 55 ML IVPB SCH (22:34)
[2017-08-15] VITALS: BP 126/75
[2017-08-15] MEDS: Levalbuterol Inh UD 1.25mg/0.5ml HHN SCH ×3 (00:07→15:19)
[2017-08-15] MEDS: dilTIAZem HCl 30mg tab ORAL SCH ×4 (03:33→20:29)
[2017-08-15 03:43] VITALS: BP 129/58
[2017-08-15] MEDS: traMADol 50mg tab ORAL PRN ×3 (06:08→21:44)
[2017-08-15 07:34] LABS: ANION GAP 1 mmol/L (5-15); BLOOD UREA NITROGEN 19 mg/dL (7-18); CHLORIDE 102 MMOL/L (98-107); CREATININE 0.7 MG/DL (0.55-1.30); POTASSIUM 5.1 MMOL/L (3.5-5.1); SODIUM 143 MMOL/L (136-145)
[2017-08-15 07:56] VITALS: BP 117/74
[2017-08-15 07:59] LABS: CARBON DIOXIDE 41 MMOL/L (21-32)
[2017-08-15] MEDS: Docusate 100mg cap ORAL SCH ×2 (08:20→20:29)
[2017-08-15] MEDS: Theophylline ER 100mg ORAL SCH (08:20)
[2017-08-15] MEDS: Sucralfate 1gm tab ORAL SCH ×4 (08:21→20:29)
[2017-08-15] MEDS: Advair 100/50 Inhaler - 14 dose INH SCH ×2 (08:32→19:00)
--- NOTE | 2017-08-15 09:13 | Nephrology Progress Note ---
Assessment/Plan Assessment/Plan 1. Hypercapneic Resp Failure. End Stage COPD/Lung Dz - BiPAP. Hold any narcotics. Tylenol and Ultram only. - DC to SNF when possible 2. End Stage COPD- per pulm mgmt + hospice 3. HTN- Cardizem 4. DVT prophylaxsis with lovenox 5. Disposition- DC to SNF 6. PSVT- unsustained. On cardizem. Resolved Subjective Date patient seen: Aug 15, 2017 Time patient seen: 09:11 ROS Limited/Unobtainable: No Allergies: Coded Allergies: No Known Allergies (Unverified , 08/10/17) All Systems: reviewed and negative except above Subjective Patient resting, no overt distress Objective Last 24 Hour Vital Signs Date Time Temp Pulse Resp B/P (MAP) Pulse Ox O2 Delivery O2 Flow Rate FiO2 08/15/17 08:21 93 117/74 08/15/17 07:56 97.8 93 19 117/74 98 Nasal Cannula 2.0 97.8 08/15/17 07:07 97.8 08/15/17 03:43 98.2 99 19 129/58 94 Nasal Cannula 2.0 98.2 08/15/17 03:33 99 129/58 08/15/17 00:00 109 18 100 Nasal Cannula 2.0 28 08/15/17 00:00 104 20 97 Nasal Cannula 2.0 28 08/15/17 00:00 98.4 102 19 126/75 96 Nasal Cannula 2.0 98.4 08/14/17 22:34 109 111/72 08/14/17 21:11 109 16 98 Facial 30 08/14/17 20:00 97.9 101 19 111/72 96 Bi-pap 30 97.9 08/14/17 19:18 107 14 97 Facial 30 08/14/17 19:17 104 20 Nasal Cannula 2.0 28 08/14/17 19:15 Nasal Cannula 2.0 28 08/14/17 19:15 95 Nasal Cannula 2.0 28 08/14/17 16:15 100 18 99 Nasal Cannula 2.0 28 08/14/17 16:07 99 18 97 Nasal Cannula 2.0 28 08/14/17 16:00 97.9 96 20 137/87 98 Nasal Cannula 2.0 97.9 08/14/17 15:53 105 15 98 Facial 30 08/14/17 15:10 100 125/70 08/14/17 12:00 97.2 100 20 125/70 97 97.2 08/14/17 10:18 97.9 08/14/17 09:19 92 134/82 Intake and Output 08/14/17 08/15/17 19:00 07:00 Intake Total 220 ml 660 ml Balance 220 ml 660 ml Intake Oral 220 ml 600 ml IV Total 60 ml # Voids 3 4 Laboratory Tests 08/15/17 05:10: Sodium Level 143, Potassium Level 5.1, Chloride Level 102, Carbon Dioxide Level 41*H, Anion Gap 1L, Blood Urea Nitrogen 19H, Creatinine 0.7, Estimat Glomerular Filtration Rate > 60, Glucose Level 139H, Calcium Level 9.0 Height (Feet): 5 Height (Inches): 0.00 Weight (Pounds): 88 General Appearance: no apparent distress EENT: normal ENT inspection Neck: normal alignment, supple Cardiovascular: normal rate, regular rhythm Respiratory/Chest: expiratory wheezing Abdomen: non tender, soft Edema: no edema noted Arm (L), no edema noted Arm (R), no edema noted Leg (L), no edema noted Leg (R), no edema noted Pedal (L), no edema noted Pedal (R), no edema noted Generalized Alvarado Grimm M.D. Aug 15, 2017 09:13
[2017-08-15 12:00] VITALS: BP 129/76
--- NOTE | 2017-08-15 14:36 | Pulmonology Progress Note ---
Assessment/Plan Problems: (1) Acute on chronic respiratory failure (2) COPD exacerbation (3) Toxic metabolic encephalopathy (4) Chronic respiratory failure (5) Emphysema lung Assessment/Plan still short of breath bipap prn better no new complains continue respiratory treatment on theophylline social service consult Subjective ROS Limited/Unobtainable: No Constitutional: Reports: no symptoms HEENT: Repors: dysphagia Respiratory: Reports: no symptoms Allergies: Coded Allergies: No Known Allergies (Unverified , 08/10/17) Objective Last 24 Hour Vital Signs Date Time Temp Pulse Resp B/P (MAP) Pulse Ox O2 Delivery O2 Flow Rate FiO2 08/15/17 12:00 97.1 111 18 129/76 98 Nasal Cannula 2.0 97.1 111 08/15/17 08:21 93 117/74 08/15/17 07:56 97.8 93 19 117/74 98 Nasal Cannula 2.0 97.8 08/15/17 07:55 107 18 100 Nasal Cannula 2.0 28 08/15/17 07:45 103 20 98 Nasal Cannula 2.0 28 08/15/17 07:44 Nasal Cannula 2.0 28 08/15/17 07:44 98 Nasal Cannula 2.0 28 08/15/17 07:07 97.8 08/15/17 03:43 98.2 99 19 129/58 94 Nasal Cannula 2.0 98.2 08/15/17 03:33 99 129/58 08/15/17 00:00 109 18 100 Nasal Cannula 2.0 28 08/15/17 00:00 104 20 97 Nasal Cannula 2.0 28 08/15/17 00:00 98.4 102 19 126/75 96 Nasal Cannula 2.0 98.4 08/14/17 22:34 109 111/72 08/14/17 21:11 109 16 98 Facial 30 08/14/17 20:00 97.9 101 19 111/72 96 Bi-pap 30 97.9 08/14/17 19:18 107 14 97 Facial 30 08/14/17 19:17 104 20 Nasal Cannula 2.0 28 08/14/17 19:15 Nasal Cannula 2.0 28 08/14/17 19:15 95 Nasal Cannula 2.0 28 08/14/17 16:15 100 18 99 Nasal Cannula 2.0 28 08/14/17 16:07 99 18 97 Nasal Cannula 2.0 28 08/14/17 16:00 97.9 96 20 137/87 98 Nasal Cannula 2.0 97.9 08/14/17 15:53 105 15 98 Facial 30 08/14/17 15:10 100 125/70 Intake and Output 08/14/17 08/15/17 19:00 07:00 Intake Total 220 ml 660 ml Balance 220 ml 660 ml Intake Oral 220 ml 600 ml IV Total 60 ml # Voids 3 4 General Appearance: WD/WN HEENT: normocephalic, atraumatic Respiratory/Chest: chest wall non-tender, lungs clear Breasts: no masses Cardiovascular: normal peripheral pulses Abdomen: normal bowel sounds, soft, non tender Extremities: no cyanosis Neurologic/Psychiatric: supply chain specialist II-XII grossly normal Laboratory Tests 08/15/17 05:10: Sodium Level 143, Potassium Level 5.1, Chloride Level 102, Carbon Dioxide Level 41*H, Anion Gap 1L, Blood Urea Nitrogen 19H, Creatinine 0.7, Estimat Glomerular Filtration Rate > 60, Glucose Level 139H, Calcium Level 9.0 Current Medications Medications (Trade) Dose Ordered Sig/Rochelle Route PRN Reason Start Time Stop Time Status Last Admin Dose Admin Acetaminophen (Tylenol) 650 mg Q4H PRN ORAL Mild Pain (Pain Scale 1-3) 08/14/17 14:00 09/09/17 13:59 Albuterol/ Ipratropium (Albuterol/ Ipratropium) 3 ml Q4H PRN HHN Shortness of Breath 08/14/17 14:00 08/17/17 13:59 Dextrose (Dextrose 50%) 25 ml STAT PRN IV Hypoglycemia 08/14/17 13:00 09/13/17 12:59 Dextrose (Dextrose 50%) 50 ml STAT PRN IV Hypoglycemia 08/14/17 13:00 09/13/17 12:59 Diltiazem HCl (Cardizem) 30 mg Q6H ORAL 08/14/17 15:00 09/10/17 14:59 08/15/17 08:21 Docusate Sodium (Colace) 100 mg EVERY 12 HOURS ORAL 08/14/17 21:00 09/09/17 20:59 08/15/17 08:20 Enoxaparin Sodium (Lovenox) 40 mg Q24H SUBQ 6/16/18 18:00 09/09/17 17:59 08/14/17 17:16 Iron Sucrose 100 mg/Sodium Chloride 60 ml @ 240 mls/hr BEDTIME IVPB 08/14/17 21:00 08/16/17 21:14 08/14/17 22:34 Levalbuterol HCl (Xopenex) 1.25 mg Q8HRT HHN 08/14/17 15:00 08/17/17 22:59 08/15/17 08:32 Levofloxacin (Levaquin) 250 mg DAILY@1000 ORAL 08/15/17 10:00 08/19/17 09:59 08/15/17 10:23 Ondansetron HCl (Zofran) 4 mg Q6H PRN IVP Nausea & Vomiting 08/14/17 16:00 09/09/17 15:59 08/15/17 12:36 Salmeterol Xinafoate/ Fluticasone (Advair 100/50 Diskus) 1 puffs TWICE A DAY INH 08/14/17 18:00 09/10/17 08:59 08/15/17 08:32 Sucralfate (Carafate) 1 gm FOUR TIMES A DAY ORAL 08/14/17 13:00 09/12/17 17:59 08/15/17 12:29 Theophylline (Baldemar-Dur) 100 mg DAILY ORAL 08/15/17 09:00 09/12/17 08:59 08/15/17 08:20 Tiotropium [place] (Spiriva Inhaler) 1 puff DAILY INH 08/15/17 09:00 09/10/17 08:59 08/15/17 08:32 Tramadol HCl (Ultram) 50 mg Q6H PRN ORAL Moderate Pain (Pain Scale 4-6) 08/14/17 16:00 08/21/17 09:59 08/15/17 06:08 Jakob Hoang MD Aug 15, 2017 14:36
[2017-08-15 16:00] VITALS: BP 136/81
[2017-08-15] MEDS: Enoxaparin 40mg Inj SUBQ SCH (17:13)
[2017-08-15 19:53] VITALS: BP 142/79
[2017-08-15] MEDS: Iron Sucrose 100 MG in NS 55 ML IVPB SCH (20:28)
[2017-08-16] VITALS: BP 134/93
[2017-08-16] MEDS: Levalbuterol Inh UD 1.25mg/0.5ml HHN SCH ×4 (00:06→23:31)
[2017-08-16 04:00] VITALS: BP 134/89
[2017-08-16] MEDS: dilTIAZem HCl 30mg tab ORAL SCH ×4 (04:16→20:34)
[2017-08-16] MEDS: traMADol 50mg tab ORAL PRN ×4 (04:18→22:43)
[2017-08-16 07:29] LABS: BASOPHILS % (AUTO) 1.1 % (0.0-2.0); EOSINOPHILS % (AUTO) 2.8 % (0.0-3.0); HEMATOCRIT 29.1 % (37.0-47.0); HEMOGLOBIN 8.4 G/DL (12.0-16.0); LYMPHOCYTES % (AUTO) 9.9 % (20.0-45.0); MEAN CORPUSCULAR VOLUME 79 FL (80-99); MONOCYTES % (AUTO) 10.1 % (1.0-10.0); NEUTROPHILS % (AUTO) 76.2 % (45.0-75.0); PLATELET COUNT 156 K/UL (150-450); RED BLOOD COUNT 3.68 M/UL (4.20-5.40); WHITE BLOOD COUNT 7.9 K/UL (4.8-10.8)
[2017-08-16 07:45] LABS: ANION GAP 2 mmol/L (5-15); BLOOD UREA NITROGEN 10 mg/dL (7-18); CALCIUM 10.1 MG/DL (8.5-10.1); CARBON DIOXIDE 37 MMOL/L (21-32); CHLORIDE 100 MMOL/L (98-107); CREATININE 0.5 MG/DL (0.55-1.30); POTASSIUM 4.6 MMOL/L (3.5-5.1); SODIUM 139 MMOL/L (136-145)
[2017-08-16] MEDS: Advair 100/50 Inhaler - 14 dose INH SCH ×2 (07:51→19:33)
[2017-08-16 08:00] VITALS: BP 134/81
[2017-08-16] MEDS: Sucralfate 1gm tab ORAL SCH ×5 (08:22→20:34)
[2017-08-16] MEDS: Theophylline ER 100mg ORAL SCH (08:22)
[2017-08-16] MEDS: Docusate 100mg cap ORAL SCH ×2 (08:22→21:20)
--- NOTE | 2017-08-16 09:08 | Nephrology Progress Note ---
Assessment/Plan Assessment/Plan 1. Hypercapneic Resp Failure. End Stage COPD/Lung Dz - BiPAP. Hold any narcotics. Tylenol and Ultram only. - DC today once cleared by production operations managerproduct line manager 2. End Stage COPD- per pulm mgmt + hospice 3. HTN- Cardizem 4. DVT prophylaxsis with lovenox 5. Disposition- DC to SNF 6. PSVT- unsustained. On cardizem. Resolved Subjective Date patient seen: Aug 16, 2017 Time patient seen: 09:05 ROS Limited/Unobtainable: No Allergies: Coded Allergies: No Known Allergies (Unverified , 08/10/17) Subjective Patient resting, no overt distress. Awaiting DC Objective Last 24 Hour Vital Signs Date Time Temp Pulse Resp B/P (MAP) Pulse Ox O2 Delivery O2 Flow Rate FiO2 08/16/17 08:28 98 134/81 08/16/17 08:03 92 18 99 Nasal Cannula 2.0 28 08/16/17 08:00 98.1 91 18 134/81 100 Nasal Cannula 2.0 98.1 08/16/17 07:51 Nasal Cannula 2.0 28 08/16/17 07:51 98 Nasal Cannula 2.0 28 08/16/17 07:51 91 20 98 Nasal Cannula 2.0 28 08/16/17 04:16 92 134/89 08/16/17 04:00 98.6 92 17 134/89 100 Nasal Cannula 2.0 98.6 08/16/17 00:00 100 20 97 Nasal Cannula 2.0 28 08/16/17 00:00 102 18 100 Nasal Cannula 2.0 28 08/16/17 00:00 98.2 98 18 134/93 98 Nasal Cannula 2.0 98.2 08/15/17 20:29 104 142/79 08/15/17 19:53 98.1 104 18 142/79 97 Nasal Cannula 2.0 98.1 08/15/17 19:24 Nasal Cannula 2.0 28 08/15/17 19:24 98 Nasal Cannula 2.0 28 08/15/17 19:24 101 17 98 Facial 30 08/15/17 17:24 100 17 98 Facial 30 08/15/17 16:44 98.4 08/15/17 16:00 98.4 104 18 136/81 100 Nasal Cannula 2.0 98.4 08/15/17 15:45 97.1 08/15/17 15:24 104 18 100 Nasal Cannula 2.0 28 08/15/17 15:15 101 20 98 Nasal Cannula 2.0 28 08/15/17 14:43 112 119/77 08/15/17 12:00 97.1 111 18 129/76 98 Nasal Cannula 2.0 97.1 111 Intake and Output 08/15/17 08/16/17 19:00 07:00 Intake Total 850 ml 300 ml Balance 850 ml 300 ml Intake Oral 850 ml 300 ml # Voids 3 1 Laboratory Tests 08/16/17 06:55: White Blood Count 7.9, Red Blood Count 3.68L, Hemoglobin 8.4L, Hematocrit 29.1L , Mean Corpuscular Volume 79L, Mean Corpuscular Hemoglobin 22.7L, Mean Corpuscular Hemoglobin Concent 28.8L, Red Cell Distribution Width 17.0H, Platelet Count 156, Mean Platelet Volume 9.5, Neutrophils (%) (Auto) 76.2H, Lymphocytes (%) (Auto) 9.9L, Monocytes (%) (Auto) 10.1H, Eosinophils (%) (Auto) 2.8, Basophils (%) (Auto) 1.1, Sodium Level 139, Potassium Level 4.6, Chloride Level 100, Carbon Dioxide Level 37H, Anion Gap 2L, Blood Urea Nitrogen 10, Creatinine 0.5L, Estimat Glomerular Filtration Rate > 60, Glucose Level 83, Calcium Level 10.1 Height (Feet): 5 Height (Inches): 0.00 Weight (Pounds): 88 General Appearance: no apparent distress, alert EENT: normal ENT inspection Neck: normal alignment Cardiovascular: normal rate, regular rhythm Respiratory/Chest: expiratory wheezing Edema: no edema noted Arm (L), no edema noted Arm (R), no edema noted Leg (L), no edema noted Leg (R), no edema noted Pedal (L), no edema noted Pedal (R), no edema noted Generalized Alvarado Grimm M.D. Aug 16, 2017 09:08
--- NOTE | 2017-08-16 10:14 | Cardiology Report ---
APPROVED REPORT EKG Measurement Heart [id number] Sinus rhythm with short OH Minimal voltage criteria for LVH, may be normal variant Abnormal ECG
[2017-08-16 12:00] VITALS: BP 114/76
--- NOTE | 2017-08-16 14:03 | Pulmonology Progress Note ---
Assessment/Plan Problems: (1) Acute on chronic respiratory failure (2) COPD exacerbation (3) Toxic metabolic encephalopathy (4) Chronic respiratory failure (5) Emphysema lung Assessment/Plan getting better bipap prn better no new complains continue respiratory treatment on theophylline social service consult Subjective ROS Limited/Unobtainable: No Constitutional: Reports: no symptoms HEENT: Repors: no symptoms Gastrointestinal/Abdominal: Reports: no symptoms Allergies: Coded Allergies: No Known Allergies (Unverified , 08/10/17) Objective Last 24 Hour Vital Signs Date Time Temp Pulse Resp B/P (MAP) Pulse Ox O2 Delivery O2 Flow Rate FiO2 08/16/17 12:48 90 20 94 08/16/17 12:00 98 20 94 08/16/17 12:00 98.2 89 18 114/76 100 Nasal Cannula 2.0 98.2 08/16/17 11:17 98.1 08/16/17 10:30 97 17 94 Facial 30 08/16/17 10:18 98.1 08/16/17 08:28 98 134/81 08/16/17 08:03 92 18 99 Nasal Cannula 2.0 28 08/16/17 08:00 98.1 91 18 134/81 100 Nasal Cannula 2.0 98.1 08/16/17 07:51 Nasal Cannula 2.0 28 08/16/17 07:51 98 Nasal Cannula 2.0 28 08/16/17 07:51 91 20 98 Nasal Cannula 2.0 28 08/16/17 04:16 92 134/89 08/16/17 04:00 98.6 92 17 134/89 100 Nasal Cannula 2.0 98.6 08/16/17 00:00 100 20 97 Nasal Cannula 2.0 28 08/16/17 00:00 102 18 100 Nasal Cannula 2.0 28 08/16/17 00:00 98.2 98 18 134/93 98 Nasal Cannula 2.0 98.2 08/15/17 20:29 104 142/79 08/15/17 19:53 98.1 104 18 142/79 97 Nasal Cannula 2.0 98.1 08/15/17 19:24 Nasal Cannula 2.0 28 08/15/17 19:24 98 Nasal Cannula 2.0 28 08/15/17 19:24 101 17 98 Facial 30 08/15/17 17:24 100 17 98 Facial 30 08/15/17 16:00 98.4 104 18 136/81 100 Nasal Cannula 2.0 98.4 08/15/17 15:45 97.1 08/15/17 15:24 104 18 100 Nasal Cannula 2.0 28 08/15/17 15:15 101 20 98 Nasal Cannula 2.0 28 08/15/17 14:43 112 119/77 Intake and Output 08/15/17 08/16/17 19:00 07:00 Intake Total 850 ml 300 ml Balance 850 ml 300 ml Intake Oral 850 ml 300 ml # Voids 3 1 General Appearance: cachetic HEENT: normocephalic, atraumatic, PERRL Respiratory/Chest: lungs clear Breasts: no masses Cardiovascular: normal peripheral pulses Abdomen: normal bowel sounds Genitourinary: normal external genitalia Skin: no ulcers Laboratory Tests 08/16/17 06:55: White Blood Count 7.9, Red Blood Count 3.68L, Hemoglobin 8.4L, Hematocrit 29.1L , Mean Corpuscular Volume 79L, Mean Corpuscular Hemoglobin 22.7L, Mean Corpuscular Hemoglobin Concent 28.8L, Red Cell Distribution Width 17.0H, Platelet Count 156, Mean Platelet Volume 9.5, Neutrophils (%) (Auto) 76.2H, Lymphocytes (%) (Auto) 9.9L, Monocytes (%) (Auto) 10.1H, Eosinophils (%) (Auto) 2.8, Basophils (%) (Auto) 1.1, Sodium Level 139, Potassium Level 4.6, Chloride Level 100, Carbon Dioxide Level 37H, Anion Gap 2L, Blood Urea Nitrogen 10, Creatinine 0.5L, Estimat Glomerular Filtration Rate > 60, Glucose Level 83, Calcium Level 10.1 Current Medications Medications (Trade) Dose Ordered Sig/Rochelle Route PRN Reason Start Time Stop Time Status Last Admin Dose Admin Acetaminophen (Tylenol) 650 mg Q4H PRN ORAL Mild Pain (Pain Scale 1-3) 08/14/17 14:00 09/09/17 13:59 Albuterol/ Ipratropium (Albuterol/ Ipratropium) 3 ml Q4H PRN HHN Shortness of Breath 08/14/17 14:00 08/17/17 13:59 Dextrose (Dextrose 50%) 25 ml STAT PRN IV Hypoglycemia 08/14/17 13:00 09/13/17 12:59 Dextrose (Dextrose 50%) 50 ml STAT PRN IV Hypoglycemia 08/14/17 13:00 09/13/17 12:59 Diltiazem HCl (Cardizem) 30 mg Q6H ORAL 08/14/17 15:00 09/10/17 14:59 08/16/17 08:28 Docusate Sodium (Colace) 100 mg EVERY 12 HOURS ORAL 08/14/17 21:00 09/09/17 20:59 08/16/17 08:22 Enoxaparin Sodium (Lovenox) 40 mg Q24H SUBQ 08/14/17 18:00 09/09/17 17:59 08/15/17 17:13 Iron Sucrose 100 mg/Sodium Chloride 60 ml @ 240 mls/hr BEDTIME IVPB 08/14/17 21:00 08/16/17 21:14 08/15/17 20:28 Levalbuterol HCl (Xopenex) 1.25 mg Q8HRT HHN 08/14/17 15:00 08/17/17 22:59 08/16/17 07:51 Levofloxacin (Levaquin) 250 mg DAILY@1000 ORAL 08/15/17 10:00 08/19/17 09:59 08/16/17 10:18 Ondansetron HCl (Zofran) 4 mg Q6H PRN IVP Nausea & Vomiting 08/14/17 16:00 09/09/17 15:59 08/16/17 13:48 Salmeterol Xinafoate/ Fluticasone (Advair 100/50 Diskus) 1 puffs TWICE A DAY INH 08/14/17 18:00 09/10/17 08:59 08/16/17 07:51 Sucralfate (Carafate) 1 gm FOUR TIMES A DAY ORAL 08/14/17 13:00 09/12/17 17:59 08/16/17 08:22 Theophylline (Baldemar-Dur) 100 mg DAILY ORAL 08/15/17 09:00 09/12/17 08:59 08/16/17 08:22 Tiotropium [place] (Spiriva Inhaler) 1 puff DAILY INH 08/15/17 09:00 09/10/17 08:59 08/16/17 07:52 Tramadol HCl (Ultram) 50 mg Q6H PRN ORAL Moderate Pain (Pain Scale 4-6) 08/14/17 16:00 08/21/17 09:59 08/16/17 10:18 Jakob Hoang MD Aug 16, 2017 14:03
[2017-08-16] MEDS ORDERED: Tubing IV Secondary IV ONE (15:23)
[2017-08-16] MEDS ORDERED: NS 500ML ONE (15:23)
[2017-08-16 16:35] VITALS: BP 134/83
[2017-08-16] MEDS: Enoxaparin 40mg Inj SUBQ SCH (17:41)
--- NOTE | 2017-08-16 18:39 | Cardiac Electrophysiology PN ---
Assessment/Plan Assessment/Plan 1. Supraventricular tachycardia with the heart rate up to 200. This was after nebulizer treatment. No recurrence on Cardizem 30 mg every 6 hours. Echocardiogram EF 65% 2. Anterior T-wave inversion. No chest pain, Completely ruled out foir myocardial infarction 3. Chronic obstructive pulmonary disease exacerbation. On theophylline, albuterol, and Levaquin. Subjective Subjective Comfortble in NAD. Off BIPAP Objective Last 24 Hour Vital Signs Date Time Temp Pulse Resp B/P (MAP) Pulse Ox O2 Delivery O2 Flow Rate FiO2 08/16/17 17:19 98.4 08/16/17 16:35 98.4 103 24 134/83 98 Nasal Cannula 2.0 98.4 08/16/17 16:20 98.2 08/16/17 15:33 113 20 100 08/16/17 15:32 113 20 100 Nasal Cannula 2.0 28 08/16/17 15:21 96 20 97 Nasal Cannula 2.0 28 08/16/17 12:48 90 20 94 08/16/17 12:00 98 20 94 08/16/17 12:00 98.2 89 18 114/76 100 Nasal Cannula 2.0 98.2 08/16/17 10:30 97 17 94 Facial 30 08/16/17 10:18 98.1 08/16/17 08:28 98 134/81 08/16/17 08:03 92 18 99 Nasal Cannula 2.0 28 08/16/17 08:00 98.1 91 18 134/81 100 Nasal Cannula 2.0 98.1 08/16/17 07:51 Nasal Cannula 2.0 28 08/16/17 07:51 98 Nasal Cannula 2.0 28 08/16/17 07:51 91 20 98 Nasal Cannula 2.0 28 08/16/17 04:16 92 134/89 08/16/17 04:00 98.6 92 17 134/89 100 Nasal Cannula 2.0 98.6 08/16/17 00:00 100 20 97 Nasal Cannula 2.0 28 08/16/17 00:00 102 18 100 Nasal Cannula 2.0 28 08/16/17 00:00 98.2 98 18 134/93 98 Nasal Cannula 2.0 98.2 08/15/17 20:29 104 142/79 08/15/17 19:53 98.1 104 18 142/79 97 Nasal Cannula 2.0 98.1 08/15/17 19:24 Nasal Cannula 2.0 28 08/15/17 19:24 98 Nasal Cannula 2.0 28 08/15/17 19:24 101 17 98 Facial 30 Intake and Output 08/15/17 08/16/17 19:00 07:00 Intake Total 850 ml 300 ml Balance 850 ml 300 ml Intake Oral 850 ml 300 ml # Voids 3 1 Laboratory Tests Test 08/16/17 06:55 White Blood Count 7.9 K/UL (4.8-10.8) Red Blood Count 3.68 M/UL (4.20-5.40) L Hemoglobin 8.4 G/DL (12.0-16.0) L Hematocrit 29.1 % (37.0-47.0) L Mean Corpuscular Volume 79 FL (80-99) L Mean Corpuscular Hemoglobin 22.7 PG (27.0-31.0) L Mean Corpuscular Hemoglobin Concent 28.8 G/DL (32.0-36.0) L Red Cell Distribution Width 17.0 % (11.6-14.8) H Platelet Count 156 K/UL (150-450) Mean Platelet Volume 9.5 FL (6.5-10.1) Neutrophils (%) (Auto) 76.2 % (45.0-75.0) H Lymphocytes (%) (Auto) 9.9 % (20.0-45.0) L Monocytes (%) (Auto) 10.1 % (1.0-10.0) H Eosinophils (%) (Auto) 2.8 % (0.0-3.0) Basophils (%) (Auto) 1.1 % (0.0-2.0) Sodium Level 139 MMOL/L (136-145) Potassium Level 4.6 MMOL/L (3.5-5.1) Chloride Level 100 MMOL/L (98-107) Carbon Dioxide Level 37 MMOL/L (21-32) H Anion Gap 2 mmol/L (5-15) L Blood Urea Nitrogen 10 mg/dL (7-18) Creatinine 0.5 MG/DL (0.55-1.30) L Estimat Glomerular Filtration Rate > 60 mL/min (>60) Glucose Level 83 MG/DL (74-106) Calcium Level 10.1 MG/DL (8.5-10.1) Objective HEAD AND NECK: Showed no JVD. LUNGS: Coarse rhonchi bilaterally. CARDIOVASCULAR: Shows regular S1 and S2 with no gallop. ABDOMEN: Soft. EXTREMITIES: No pitting edema. Fam Smart MD Aug 16, 2017 18:39
[2017-08-16 19:48] VITALS: BP 144/91
[2017-08-16] MEDS: Iron Sucrose 100 MG in NS 55 ML IVPB SCH (21:23)
[2017-08-17 00:33] VITALS: BP 140/91
[2017-08-17] MEDS: dilTIAZem HCl 30mg tab ORAL SCH ×3 (03:05→15:51)
[2017-08-17 04:00] VITALS: BP 138/94
[2017-08-17] MEDS: traMADol 50mg tab ORAL PRN ×3 (04:45→17:38)
[2017-08-17] MEDS: Levalbuterol Inh UD 1.25mg/0.5ml HHN SCH ×2 (07:15→14:46)
[2017-08-17 08:00] VITALS: BP 156/90
--- NOTE | 2017-08-17 08:21 | Nephrology Progress Note ---
Assessment/Plan Assessment/Plan 1. Hypercapneic Resp Failure. End Stage COPD/Lung Dz - BiPAP. - DC once cleared by investment fund managerinternational logistics manager 2. End Stage COPD- per pulm mgmt + hospice 3. HTN- Cardizem 4. DVT prophylaxsis with lovenox 5. Disposition- DC pending 6. PSVT- unsustained. On cardizem. Subjective Date patient seen: Aug 17, 2017 Time patient seen: 08:20 ROS Limited/Unobtainable: No Respiratory: Reports: shortness of breath Allergies: Coded Allergies: No Known Allergies (Unverified , 08/10/17) Subjective Patient resting in no distress awaiting DC/placement Objective Last 24 Hour Vital Signs Date Time Temp Pulse Resp B/P (MAP) Pulse Ox O2 Delivery O2 Flow Rate FiO2 08/17/17 07:25 103 18 99 Nasal Cannula 2.0 28 08/17/17 07:15 100 18 99 Nasal Cannula 2.0 28 08/17/17 07:13 Nasal Cannula 2.0 28 08/17/17 07:13 99 Nasal Cannula 2.0 28 08/17/17 05:44 98.7 08/17/17 04:45 98.7 08/17/17 04:00 98.7 99 20 138/94 98 Room Air 98.7 08/17/17 03:15 104 20 99 08/17/17 03:05 102 136/94 08/17/17 03:05 102 18 98 Facial 30 08/17/17 01:00 99 18 100 Facial 30 08/17/17 00:33 98.2 97 20 140/91 99 Room Air 98.2 97 08/16/17 23:42 105 20 100 Facial 30 08/16/17 23:41 105 20 100 Nasal Cannula 2.0 28 08/16/17 23:31 104 20 99 Nasal Cannula 2.0 28 08/16/17 22:43 98.6 08/16/17 21:16 98.6 08/16/17 20:34 101 138/90 08/16/17 20:17 98.6 08/16/17 19:48 98.6 114 20 144/91 99 Room Air 98.6 114 08/16/17 19:33 Nasal Cannula 2.0 28 08/16/17 19:33 99 Nasal Cannula 2.0 28 08/16/17 16:35 98.4 103 24 134/83 98 Nasal Cannula 2.0 98.4 08/16/17 16:20 98.2 08/16/17 15:33 113 20 100 08/16/17 15:32 113 20 100 Nasal Cannula 2.0 28 08/16/17 15:21 96 20 97 Nasal Cannula 2.0 28 08/16/17 12:48 90 20 94 08/16/17 12:00 98 20 94 08/16/17 12:00 98.2 89 18 114/76 100 Nasal Cannula 2.0 98.2 08/16/17 10:30 97 17 94 Facial 30 08/16/17 10:18 98.1 08/16/17 08:28 98 134/81 Intake and Output 08/16/17 08/17/17 19:00 07:00 Intake Total 760 ml 480 ml Balance 760 ml 480 ml Intake Oral 760 ml 420 ml IV Total 60 ml # Voids 4 3 # Bowel Movements 1 Height (Feet): 5 Height (Inches): 0.00 Weight (Pounds): 88 General Appearance: no apparent distress, alert EENT: normal ENT inspection Neck: normal alignment, supple Cardiovascular: normal rate, regular rhythm Respiratory/Chest: expiratory wheezing Abdomen: non tender, soft Edema: no edema noted Arm (L), no edema noted Arm (R), no edema noted Leg (L), no edema noted Leg (R), no edema noted Pedal (L), no edema noted Pedal (R), no edema noted Generalized Alvarado Grimm M.D. Aug 17, 2017 08:21
[2017-08-17] MEDS: Advair 100/50 Inhaler - 14 dose INH SCH (08:47)
[2017-08-17] MEDS: Docusate 100mg cap ORAL SCH (08:49)
[2017-08-17] MEDS: Sucralfate 1gm tab ORAL SCH ×3 (08:49→17:38)
[2017-08-17] MEDS: Theophylline ER 100mg ORAL SCH (08:55)
[2017-08-17 11:57] VITALS: BP 130/80
[2017-08-17 15:53] VITALS: BP 130/80
--- NOTE | 2017-08-17 17:18 | Cardiac Electrophysiology PN ---
Assessment/Plan Assessment/Plan 1. Supraventricular tachycardia with the heart rate up to 200. This was after nebulizer treatment. No recurrence on Cardizem 30 mg every 6 hours. Echocardiogram EF 65% 2. Anterior T-wave inversion. No chest pain, Completely ruled out for myocardial infarction 3. Chronic obstructive pulmonary disease exacerbation. On theophylline, albuterol, and Levaquin. MARLO RN DC planning today Subjective Subjective Comfortable in NAD. Off BIPAP. Awaiting DC today Objective Last 24 Hour Vital Signs Date Time Temp Pulse Resp B/P (MAP) Pulse Ox O2 Delivery O2 Flow Rate FiO2 08/17/17 15:53 98.2 107 18 130/80 99 98.2 08/17/17 15:51 103 125/78 08/17/17 15:00 101 18 99 Nasal Cannula 2.0 28 08/17/17 14:46 99 18 98 Nasal Cannula 2.0 28 08/17/17 12:13 99.4 08/17/17 11:57 99.4 116 18 130/80 100 99.4 08/17/17 08:49 98 156/90 08/17/17 08:00 98.2 98 17 156/90 100 98.2 08/17/17 07:25 103 18 99 Nasal Cannula 2.0 28 08/17/17 07:15 100 18 99 Nasal Cannula 2.0 08/17/17 07:13 Nasal Cannula 2.0 28 08/17/17 07:13 99 Nasal Cannula 2.0 28 08/17/17 04:45 98.7 08/17/17 04:00 98.7 99 20 138/94 98 Room Air 98.7 08/17/17 03:15 104 20 99 08/17/17 03:05 102 136/94 08/17/17 03:05 102 18 98 Facial 30 08/17/17 01:00 99 18 100 Facial 30 08/17/17 00:33 98.2 97 20 140/91 99 Room Air 98.2 97 08/16/17 23:42 105 20 100 Facial 30 08/16/17 23:41 105 20 100 Nasal Cannula 2.0 28 08/16/17 23:31 104 20 99 Nasal Cannula 2.0 28 08/16/17 22:43 98.6 08/16/17 21:16 98.6 08/16/17 20:34 101 138/90 08/16/17 20:17 98.6 08/16/17 19:48 98.6 114 20 144/91 99 Room Air 98.6 114 08/16/17 19:33 Nasal Cannula 2.0 28 08/16/17 19:33 99 Nasal Cannula 2.0 28 Intake and Output 08/16/17 08/17/17 19:00 07:00 Intake Total 760 ml 480 ml Balance 760 ml 480 ml Intake Oral 760 ml 420 ml IV Total 60 ml # Voids 4 3 # Bowel Movements 1 Objective HEAD AND NECK: Showed no JVD. LUNGS: Coarse rhonchi bilaterally. CARDIOVASCULAR: Regular S1 and S2 with no gallop. ABDOMEN: Soft. EXTREMITIES: No pitting edema. Fam Smart MD Aug 17, 2017 17:18
--- NOTE | 2017-08-18 07:37 | Discharge Summary ---
Discharge Summary Discharge Summary _ DATE OF ADMISSION: 08/10/2017 DATE OF DISCHARGE: 08/17/2017 REASON FOR ADMISSION: 62 years old female with a history of COPD and oxygen dependency, presented to emergency department with shortness of breath along with being somnolent and difficult to arouse, and slowly falling asleep. Upon evaluation in emergency department urine toxicology screen was negative. Chest x-ray revealed no evidence of acute cardiopulmonary pathology. Troponin was negative . EKG revealed normal sinus rhythm, no acute ischemic changes with anterior T wave inversion. ABG revealed hypercapnia with PCO2 71, pH 7.33. Patient was placed on BiPAP Loading dose of steroids was provided. Handheld nebulizing treatment with bronchodilator provided. Patient was admitted to the hospital with diagnoses acute on chronic hypercapnic respiratory failure, COPD exacerbation, toxic metabolic encephalopathy. CONSULTANTS: jewel hole rough opener Dr. Smart pulmonary Dr. Hoang [facility] COURSE: Patient admitted. Patient initially was on the BiPAP, settings were titrated titrated to keep pulse oximetry above 92%. Pulmonary toilet provided w via handheld nebulizing. Trial of theophylline started. Patient was on empiric antibiotic. Follow up chest x-ray revealed no evidence of infiltrate. CT of the chest revealed findings of hyperinflated lungs consistent with COPD but no evidence of infiltrate. Venous duplex bilateral lower extremity was negative. Patient developed supraventricular tachycardia after nebulizing treatment with albuterol. Cardiology consult was requested. Patient started on Cardizem . No further episodes of supraventricular tachycardia. Echocardiogram revealed preserved ejection fraction of 65-70% and right ventricular systolic pressure of 84 consistent with severe pulmonary hypertension. DVT prophylaxis provided. Pain management was c addressed. Bowel regimen instituted. Supportive care provided. Toxic metabolic encephalopathy was likely due to acute hypercapnic respiratory failure along with COPD exacerbation. Mental status back to baseline. Patient clinically improved. No signs of respiratory distress. Pulse oximetry stable on low-dose of oxygen via nasal cannula. [facility] was [facility] of care FINAL DIAGNOSES: Acute on chronic hypercapnic respiratory failure COPD exacerbation toxic metabolic encephalopathy emphysema supraventricular tachycardia DISCHARGE MEDICATIONS: List of medication was sent to facility DISCHARGE INSTRUCTIONS: Patient was discharged to [facility] for further management; follow up with medical doctor at the facility I have been assigned to dictate discharge summary for this account. I was not involved in the patient's management. Reta Scott NP Aug 18, 2017 07:37
== END 2017-08-17 18:40 | DRG 140 ==
LOC: EDBD 14:11 → EMR 16:26 → 2W 16:35 → EDBEDREQSVC 18:21 → EDBEDREQ 18:33 → 2W 22:10 → 2E 08-11 10:00 → 4W 08-14 11:48
PROC: 5A09357 Assistance with Respiratory Ventilation, Less than 24 Consecutive Hours, Continuous Positive Airway Pressure (ICD-10-PCS; principal; 2017-08-12)
DX: J44.1 Chronic obstructive pulmonary disease with (acute) exacerbation (principal); J96.22 Acute and chronic respiratory failure with hypercapnia; G92 Toxic encephalopathy; I10 Essential (primary) hypertension; I47.1 Supraventricular tachycardia
CPT/HCPCS: 36415; 36600; 71045; 71250; 80048; 80053; 80307; 82378; 82550; 82553; 82607; 82746; 82803; 82962; 83540; 83550; 83615; 83880; 84484; 85007; 85025; 85044; 85060; 85610; 85651; 85730; 87081; 93005; 93306; 93971; 94640; 94660; 94664; 94760; 99285; J2405; J7620

== ENCOUNTER 2017-12-01 20:24 | Inpatient (IN) | payer MEDICAID ==
[~2017-12-01] VITALS: Ht 152.4 cm; Wt 50.3 kg
[~2017-12-01 20:24] MED LIST: ADVAIR HFA 45-212 GM INH; CARDIZEM30 M1 PO; LEVAQUIN750 MG ORAL; NORCO 5-325 TA1 EACH ORAL; SPIRIVA18 MCG INH
[2017-12-01] MEDS: Solu-MEDROL 125mg Inj IVP ONE ×2 (20:45→21:10)
[2017-12-01] MEDS ORDERED: Levalbuterol Inh UD 1.25mg/0.5ml HHN ONE ×2 (20:45)
[2017-12-01] MEDS: Ipratropium 0.02% Inh Soln 2.5ml UD HHN SCH ×4 (20:54→23:07)
[2017-12-01 21:27] VITALS: BP 156/90
[2017-12-01 21:27] LABS: ANION GAP 6 mmol/L (5-15); BLOOD UREA NITROGEN 23 mg/dL (7-18); CALCIUM 9.8 MG/DL (8.5-10.1); CARBON DIOXIDE 37 MMOL/L (21-32); CHLORIDE 101 MMOL/L (98-107); CREATININE 0.8 MG/DL (0.55-1.30); POTASSIUM 4.3 MMOL/L (3.5-5.1); SODIUM 144 MMOL/L (136-145)
[2017-12-01 21:28] LABS: APPEARANCE,URINE CLEAR; BILIRUBIN, URINE NEGATIVE (NEGATIVE); GLUCOSE, URINE (UA) NEGATIVE (NEGATIVE); KETONES,URINE NEGATIVE (NEGATIVE); LEUKOCYTE ESTERASE ,URINE 1+ (NEGATIVE); NITRITE,URINE NEGATIVE (NEGATIVE); PH,URINE 5 (4.5-8.0); PROTEIN,URINE 3+ (NEGATIVE); UROBILINOGEN,URINE NORMAL MG/DL (0.0-1.0)
[2017-12-01 21:32] LABS: COLOR,URINE YELLOW
[2017-12-01 21:38] LABS: EOSINOPHILS % (AUTO) 1.5 % (0.0-3.0); HEMATOCRIT 43.6 % (37.0-47.0); HEMOGLOBIN 13.1 G/DL (12.0-16.0); LYMPHOCYTES % (AUTO) 9.3 % (20.0-45.0); MEAN CORPUSCULAR VOLUME 79 FL (80-99); MONOCYTES % (AUTO) 6.6 % (1.0-10.0); NEUTROPHILS % (AUTO) 79.6 % (45.0-75.0); PLATELET COUNT 221 K/UL (150-450); RED BLOOD COUNT 5.52 M/UL (4.20-5.40); RED CELL DISTRIBUTION WIDTH 18.4 % (11.6-14.8); WHITE BLOOD COUNT 8.4 K/UL (4.8-10.8)
[2017-12-01 21:40] LABS: ALANINE AMINOTRANSFERASE 33 U/L (12-78); ALBUMIN 4.2 G/DL (3.4-5.0); ALBUMIN/GLOBULIN RATIO 1.3 (1.0-2.7); ALKALINE PHOSPHATASE 87 U/L (46-116); ASPARTATE AMINO TRANSFERASE 28 U/L (15-37); BILIRUBIN,TOTAL 0.5 MG/DL (0.2-1.0); CKMB 4.1 NG/ML (0.0-3.6)
[2017-12-01 22:58] VITALS: BP 138/87
[2017-12-02] VITALS (7 sets, daily range): BP systolic 114–148; BP diastolic 71–102
--- NOTE | 2017-12-02 02:31 | Emergency Room Report ---
History of Present Illness General Chief Complaint: Dyspnea/Respdistress Source: Patient, Medical Record, EMS Present Illness HPI Patient is a 62-year-old female who presented after increased difficulty breathing. Patient gradual onset of symptoms. Patient was noted to have prior history of COPD. She normally uses home oxygen. The patient denied any fever. She had nonproductive cough. The patient had been using inhalers without any relief.History is limited by patient's cooperation Allergies: Coded Allergies: No Known Allergies (Unverified , 08/10/17) Patient History Last Menstrual Period: n/a Reviewed Nursing Documentation: PMH: Agreed; PSxH: Agreed Nursing Documentation-PMH Past Medical History: No History, Except For Hx Cardiac Problems: Yes Hx Hypertension: Yes Hx COPD: Yes Hx Cancer: No Hx Gastrointestinal Problems: No Hx Neurological Problems: No Review of Systems All Other Systems: limited - by Poor historian Physical Exam Vital Signs Date Time Temp Pulse Resp B/P (MAP) Pulse Ox O2 Delivery O2 Flow Rate FiO2 12/01/17 20:25 98.2 140 22 156/90 98 Nasal Cannula 6.0 98.2 12/01/17 21:02 98 Sp02 EP Interpretation: reviewed, normal General Appearance: normal inspection, alert, thin, Chronically Ill Head: atraumatic ENT: normal ENT inspection, hearing grossly normal, normal voice Neck: normal inspection, full range of motion, supple, no bony tend Respiratory: normal inspection, no respiratory distress, no retraction, wheezing Cardiovascular #1: no edema, tachycardia Gastrointestinal: normal inspection, normal bowel sounds, non tender, soft, no guarding, no hernia Genitourinary: no CVA tenderness Musculoskeletal: normal inspection, back normal, normal range of motion Neurologic: normal inspection, alert, oriented x3, responsive, vehicle maintenance supervisor III-XII nml as tested, speech normal Psychiatric: normal inspection, judgement/insight normal, mood/affect normal Skin: normal inspection, normal color, no rash Medical Decision Making Diagnostic Impression: Primary Impression: COPD exacerbation ER Course Patient presented for shortness of breath.Differential included but was not limited to anemia, pneumonia, pneumothorax, myocardial infarction, pericardial effusion, congestive heart failure, acidosis. Because of complexity of patient' s case laboratory testing and imaging studies were ordered.EKG interpreted by me showed sinus tachycardia with a rate of 135 the left axis deviation. Patient given breathing treatments. She refused the IV steroids. BiPAP was ordered which she also refused.Laboratory testing was notable for urine drug screen positive for opiates.The patient noted have continued hypoxia and tachycardia despite oxygen therapy. Dr. Bartolome Ye was contacted for inpatient management due to panel physician Labs Test 12/01/17 20:55 12/01/17 21:14 White Blood Count 8.4 K/UL (4.8-10.8) Red Blood Count 5.52 M/UL (4.20-5.40) Hemoglobin 13.1 G/DL (12.0-16.0) Hematocrit 43.6 % (37.0-47.0) Mean Corpuscular Volume 79 FL (80-99) Mean Corpuscular Hemoglobin 23.8 PG (27.0-31.0) Mean Corpuscular Hemoglobin Concent 30.1 G/DL (32.0-36.0) Red Cell Distribution Width 18.4 % (11.6-14.8) Platelet Count 221 K/UL (150-450) Mean Platelet Volume 9.1 FL (6.5-10.1) Neutrophils (%) (Auto) 79.6 % (45.0-75.0) Lymphocytes (%) (Auto) 9.3 % (20.0-45.0) Monocytes (%) (Auto) 6.6 % (1.0-10.0) Eosinophils (%) (Auto) 1.5 % (0.0-3.0) Basophils (%) (Auto) 3.0 % (0.0-2.0) Sodium Level 144 MMOL/L (136-145) Potassium Level 4.3 MMOL/L (3.5-5.1) Chloride Level 101 MMOL/L (98-107) Carbon Dioxide Level 37 MMOL/L (21-32) Anion Gap 6 mmol/L (5-15) Blood Urea Nitrogen 23 mg/dL (7-18) Creatinine 0.8 MG/DL (0.55-1.30) Estimat Glomerular Filtration Rate > 60 mL/min (>60) Glucose Level 90 MG/DL (74-106) Calcium Level 9.8 MG/DL (8.5-10.1) Total Bilirubin 0.5 MG/DL (0.2-1.0) Aspartate Amino Transf (AST/SGOT) 28 U/L (15-37) Alanine Aminotransferase (ALT/SGPT) 33 U/L (12-78) Alkaline Phosphatase 87 U/L (46-116) Creatine Kinase MB 4.1 NG/ML (0.0-3.6) Troponin I 0.000 ng/mL (0.000-0.056) Pro-B-Type Natriuretic Peptide 151 pg/mL (0-125) Total Protein 7.5 G/DL (6.4-8.2) Albumin 4.2 G/DL (3.4-5.0) Globulin 3.3 g/dL Albumin/Globulin Ratio 1.3 (1.0-2.7) Urine Color Yellow Urine Appearance Clear Urine pH 5 (4.5-8.0) Urine Specific [place] 1.020 (1.005-1.035) Urine Protein 3+ (NEGATIVE) Urine Glucose (UA) Negative (NEGATIVE) Urine Ketones Negative (NEGATIVE) Urine Blood 1+ (NEGATIVE) Urine Nitrite Negative (NEGATIVE) Urine Bilirubin Negative (NEGATIVE) Urine Urobilinogen Normal MG/DL (0.0-1.0) Urine Leukocyte Esterase 1+ (NEGATIVE) Urine RBC 0-2 /HPF (0 - 2) Urine WBC 2-4 /HPF (0 - 2) Urine Squamous Epithelial Cells Occasional /LPF Urine Bacteria Few /HPF (NONE) Urine Mucus Moderate /LPF (NONE/OCC) Urine Opiates Screen Positive (NEGATIVE) Urine Barbiturates Screen Negative (NEGATIVE) Phencyclidine (PCP) Screen Negative (NEGATIVE) Urine Amphetamines Screen Negative (NEGATIVE) Urine Benzodiazepines Screen Negative (NEGATIVE) Urine Cocaine Screen Negative (NEGATIVE) Urine Marijuana (THC) Screen Negative (NEGATIVE) Last Vital Signs Date Time Temp Pulse Resp B/P (MAP) Pulse Ox O2 Delivery O2 Flow Rate FiO2 12/02/17 02:15 Nasal Cannula 3.0 12/02/17 01:54 141 12/02/17 01:54 97.8 24 131/81 (98) 95 97.8 12/02/17 00:24 36 Status: improved Disposition: ADMITTED INPATIENT Condition: Serious Referrals: [facility],REF (PCP) Aaron Tran MD Dec 02, 2017 02:31
[2017-12-02] MEDS ORDERED: Albuterol/Ipratropium 3ml neb HHN PRN ×2 (08:30→19:00)
[2017-12-02] MEDS ORDERED: LORazepam Inj 2mg/ml 1ml IV PRN ×2 (08:31→19:00)
[2017-12-02] MEDS ORDERED: Nitroglycerin Subl 0.4mg tab SL PRN ×2 (08:32→19:00)
[2017-12-02] MEDS ORDERED: Promethazine/Codeine 5ml UD ORAL PRN ×2 (08:33→19:00)
[2017-12-02] MEDS ORDERED: Norco 5mg/325mg tab ORAL PRN (08:37)
[2017-12-02] MEDS ORDERED: Morphine Sulfate 2mg/ml Inj IVP PRN (08:37)
[2017-12-02] MEDS ORDERED: Ketorolac 30mg Inj IV PRN (08:38)
[2017-12-02] MEDS ORDERED: Heparin 5000 units/ml inj SUBQ SCH (09:00)
[2017-12-02] MEDS ORDERED: Piperacillin/Tazobactam 3.375 GM in D5W 110 ML IVPB SCH (09:30)
[2017-12-02] MEDS: dilTIAZem HCl 30mg tab ORAL SCH ×4 (09:38→20:55)
--- NOTE | 2017-12-02 10:47 | Diagnostic Imaging Report ---
Indication: Dyspnea Comparison: 08/12/2017 A single view chest radiograph was obtained. Findings: The lungs are hyperexpanded. Heart size is normal. Bones are osteopenic. IMPRESSION: COPD
[2017-12-02] MEDS ORDERED: Pneumococcal Vaccine 25mcg/0.5ml IM ONE (11:00)
[2017-12-02] MEDS ORDERED: Theophylline ER 100mg ORAL SCH (11:00)
--- NOTE | 2017-12-02 11:40 | Consultation ---
History of Present Illness General Date patient seen: Dec 02, 2017 Chief Complaint: Dyspnea/Respdistress Present Illness HPI 62-year-old female with hx of end stage emphysema on home oxygen, presented to ER with CC of increased difficulty breathing. Patient gradual onset of symptoms. She had nonproductive cough. The patient had been using inhalers without any relief.History is limited by patient's cooperation. Pt was tachycardic, she is admitted to telemetry for further work up. Allergies: Coded Allergies: No Known Allergies (Unverified , 08/10/17) Medication History Scheduled Diltiazem Hcl* (Cardizem*), 30 MG PO QID, (Reported) Fluticasone/Salmeterol (Advair Hfa 45-21 Mcg Inhaler), 2 PUFFS INH EVERY 12 HOURS, (Reported) Levofloxacin* (Levaquin*), 750 MG ORAL DAILY, (Reported) Tiotropium Roland* (Spiriva*), 1 PUFF INH DAILY, (Reported) Scheduled PRN Hydrocodone Bit/Acetaminophen 5-325* ([place] 5-325*), 1 TAB ORAL Q6H PRN for For Pain, (Reported) Patient History Healthcare decision maker Resuscitation status Advanced Directive on File Past Medical/Surgical History Past Medical/Surgical History: (1) Emphysema lung (2) Chronic respiratory failure Review of Systems All Other Systems: negative except mentioned in HPI Physical Exam General Appearance: cachetic Lines, tubes and drains: peripheral HEENT: normocephalic, atraumatic Neck: non-tender, normal alignment Respiratory/Chest: chest wall non-tender, lungs clear Breasts: no masses Cardiovascular/Chest: normal peripheral pulses Abdomen: normal bowel sounds Last 24 Hour Vital Signs Date Time Temp Pulse Resp B/P (MAP) Pulse Ox O2 Delivery O2 Flow Rate FiO2 12/02/17 09:38 120 141/102 12/02/17 08:00 98.1 120 18 141/102 (115) 97 98.1 12/02/17 08:00 Nasal Cannula 3.0 12/02/17 04:00 139 12/02/17 04:00 98.2 120 20 145/81 (102) 95 98.2 12/02/17 04:00 Nasal Cannula 3.0 12/02/17 02:15 Nasal Cannula 3.0 12/02/17 02:00 Nasal Cannula 3.0 12/02/17 01:54 141 12/02/17 01:54 97.8 133 24 131/81 (98) 95 97.8 12/02/17 00:24 97.8 140 15 114/71 97 Nasal Cannula 4.0 36 97.8 12/02/17 00:19 97.8 140 15 114/71 97 Nasal Cannula 4.0 36 97.8 12/01/17 23:19 128 21 100 Nasal Cannula 2.0 28 12/01/17 23:18 28 12/01/17 23:10 94 12/01/17 23:09 128 22 94 Nasal Cannula 2.0 28 12/01/17 22:58 120 20 138/87 97 Nasal Cannula 4.0 36 12/01/17 21:52 133 22 100 Nasal Cannula 2.0 28 12/01/17 21:32 139 24 96 12/01/17 21:32 129 23 100 Nasal Cannula 12/01/17 21:27 98.2 140 22 156/90 96 Nasal Cannula 4.0 36 98.2 12/01/17 21:27 140 24 Nasal Cannula 4.0 36 12/01/17 21:18 139 24 96 12/01/17 21:18 139 22 96 Nasal Cannula 2.0 28 12/01/17 21:17 28 12/01/17 21:02 134 20 98 Nasal Cannula 2.0 28 12/01/17 21:02 98 12/01/17 20:25 98.2 140 22 156/90 98 Nasal Cannula 6.0 98.2 Intake and Output 12/01/17 12/02/17 19:00 07:00 Output Total 100 ml Balance -100 ml Output Urine Total 100 ml # Voids 1 # Bowel Movements 1 Laboratory Tests Test 12/01/17 20:55 12/01/17 21:14 White Blood Count 8.4 K/UL (4.8-10.8) Red Blood Count 5.52 M/UL (4.20-5.40) H Hemoglobin 13.1 G/DL (12.0-16.0) Hematocrit 43.6 % (37.0-47.0) Mean Corpuscular Volume 79 FL (80-99) L Mean Corpuscular Hemoglobin 23.8 PG (27.0-31.0) L Mean Corpuscular Hemoglobin Concent 30.1 G/DL (32.0-36.0) L Red Cell Distribution Width 18.4 % (11.6-14.8) H Platelet Count 221 K/UL (150-450) Mean Platelet Volume 9.1 FL (6.5-10.1) Neutrophils (%) (Auto) 79.6 % (45.0-75.0) H Lymphocytes (%) (Auto) 9.3 % (20.0-45.0) L Monocytes (%) (Auto) 6.6 % (1.0-10.0) Eosinophils (%) (Auto) 1.5 % (0.0-3.0) Basophils (%) (Auto) 3.0 % (0.0-2.0) H Sodium Level 144 MMOL/L (136-145) Potassium Level 4.3 MMOL/L (3.5-5.1) Chloride Level 101 MMOL/L (98-107) Carbon Dioxide Level 37 MMOL/L (21-32) H Anion Gap 6 mmol/L (5-15) Blood Urea Nitrogen 23 mg/dL (7-18) H Creatinine 0.8 MG/DL (0.55-1.30) Estimat Glomerular Filtration Rate > 60 mL/min (>60) Glucose Level 90 MG/DL (74-106) Calcium Level 9.8 MG/DL (8.5-10.1) Total Bilirubin 0.5 MG/DL (0.2-1.0) Aspartate Amino Transf (AST/SGOT) 28 U/L (15-37) Alanine Aminotransferase (ALT/SGPT) 33 U/L (12-78) Alkaline Phosphatase 87 U/L (46-116) Creatine Kinase MB 4.1 NG/ML (0.0-3.6) H Troponin I 0.000 ng/mL (0.000-0.056) Pro-B-Type Natriuretic Peptide 151 pg/mL (0-125) H Total Protein 7.5 G/DL (6.4-8.2) Albumin 4.2 G/DL (3.4-5.0) Globulin 3.3 g/dL Albumin/Globulin Ratio 1.3 (1.0-2.7) Urine Color Yellow Urine Appearance Clear Urine pH 5 (4.5-8.0) Urine Specific [place] 1.020 (1.005-1.035) Urine Protein 3+ (NEGATIVE) H Urine Glucose (UA) Negative (NEGATIVE) Urine Ketones Negative (NEGATIVE) Urine Blood 1+ (NEGATIVE) H Urine Nitrite Negative (NEGATIVE) Urine Bilirubin Negative (NEGATIVE) Urine Urobilinogen Normal MG/DL (0.0-1.0) Urine Leukocyte Esterase 1+ (NEGATIVE) H Urine RBC 0-2 /HPF (0 - 2) Urine WBC 2-4 /HPF (0 - 2) Urine Squamous Epithelial Cells Occasional /LPF Urine Bacteria Few /HPF (NONE) Urine Mucus Moderate /LPF (NONE/OCC) H Urine Opiates Screen Positive (NEGATIVE) H Urine Barbiturates Screen Negative (NEGATIVE) Phencyclidine (PCP) Screen Negative (NEGATIVE) Urine Amphetamines Screen Negative (NEGATIVE) Urine Benzodiazepines Screen Negative (NEGATIVE) Urine Cocaine Screen Negative (NEGATIVE) Urine Marijuana (THC) Screen Negative (NEGATIVE) Height (Feet): 5 Height (Inches): 0.00 Weight (Pounds): 110 Medications Current Medications Medications (Trade) Dose Ordered Sig/Rochelle Route PRN Reason Start Time Stop Time Status Last Admin Dose Admin Acetaminophen/ Hydrocodone Bitart ([place] 5/325) 1 tab Q6H PRN ORAL For Moderate Pain(4-6) 12/02/17 08:37 12/09/17 08:36 Albuterol/ Ipratropium (Albuterol/ Ipratropium) 3 ml Q4H PRN HHN dyspnea 12/02/17 08:30 12/07/17 08:29 Dextrose (Dextrose 50%) 25 ml Q30M PRN IV Hypoglycemia 12/02/17 08:29 01/01/18 08:28 Dextrose (Dextrose 50%) 50 ml Q30M PRN IV Hypoglycemia 12/02/17 08:30 01/01/18 08:29 Diltiazem HCl (Cardizem) 30 mg QID ORAL 12/02/17 09:00 01/01/18 08:59 12/02/17 09:38 Heparin Sodium (Porcine) (Heparin 5000 units/ml) 5,000 units EVERY 12 HOURS SUBQ 12/02/17 09:00 01/01/18 08:59 12/02/17 09:40 Influenza Virus Vaccine Quadrival (Flu Vaccine Quadrivalent) 0.5 ml ONCE ONCE IM 12/02/17 11:00 12/02/17 11:01 UNV Ketorolac Tromethamine (Toradol 30mg) 30 mg Q8H PRN IV moderate pain 4-6 12/02/17 08:38 12/07/17 08:37 Lorazepam (Ativan 2mg/ml 1ml) 0.5 mg Q4H PRN IV For Anxiety 12/02/17 08:31 12/09/17 08:30 Methylprednisolone Sodium Succinate (Solu-MEDROL) 60 mg EVERY 6 HOURS IVP 12/02/17 12:00 01/01/18 11:59 Morphine Sulfate (Morphine Sulfate) 2 mg Q4H PRN IVP severe pain 7-10 12/02/17 08:37 12/09/17 08:36 Nitroglycerin (Ntg) 0.4 mg Q5M X 3 DOSES PRN SL Prn Chest Pain 12/02/17 08:32 01/01/18 08:31 Ondansetron HCl (Zofran) 4 mg Q6H PRN IVP Nausea & Vomiting 12/02/17 08:33 01/01/18 08:32 Piperacillin Sod/ Tazobactam Sod 3.375 gm/Dextrose 110 ml @ 27.5 mls/hr Q8H IVPB 12/02/17 09:30 12/09/17 09:29 12/02/17 10:28 Pneumococcal Polyvalent Vaccine (Pneumovax) 0.5 ml ONCE ONCE IM 12/02/17 11:00 12/02/17 11:01 UNV Promethazine HCl/ Codeine (Phenergan with Codeine) 5 ml Q6H PRN ORAL cough 12/02/17 08:33 01/01/18 08:32 Temazepam (Restoril) 15 mg HSPRN PRN ORAL Insomnia 12/02/17 21:00 12/09/17 20:59 Theophylline ([place]-Dur) 200 mg Q24H ORAL 12/02/17 11:00 01/01/18 10:59 Tiotropium [place] (Spiriva Inhaler) 1 puff DAILY@1100 INH 12/02/17 11:00 01/01/18 10:59 12/02/17 09:37 Assessment/Plan Problem List: (1) Acute on chronic respiratory failure ICD Codes: J96.20 - Acute and chronic respiratory failure, unspecified whether with hypoxia or hypercapnia SNOMED: 04319075 (2) COPD exacerbation ICD Codes: J44.1 - Chronic obstructive pulmonary disease with (acute) exacerbation SNOMED: 743582161 (3) Emphysema lung ICD Codes: J43.9 - Emphysema, unspecified SNOMED: 28933170 Assessment/Plan respiratory treatment check sputum there is no infiltrate on CXR med/surg Jakob Hoang MD Dec 02, 2017 11:40
[2017-12-02] MEDS ORDERED: Sodium Chloride 500ML 500 ML IV ONE (11:45)
[2017-12-02] MEDS ORDERED: Solu-MEDROL 40mg Inj IVP SCH (12:00)
[2017-12-02] MEDS ORDERED: Flu Vaccine (Alfuria) for Pts Less than 65 Years old IM ONE (15:00)
--- NOTE | 2017-12-02 20:54 | History & Physical ---
History and Physical History & Physicial Dictated for Int Med-Dr Ye no. [id number]. Manrfed Jenkins MD Dec 02, 2017 20:54
[2017-12-02] MEDS: Norco 5mg/325mg tab ORAL PRN (20:56)
[2017-12-02] MEDS: Heparin 5000 units/ml inj SUBQ SCH (20:57)
[2017-12-03] VITALS (7 sets, daily range): BP systolic 122–143; BP diastolic 67–108
--- NOTE | 2017-12-03 01:30 | History and Physical Report ---
DATE OF ADMISSION: 12/01/2017 CHIEF COMPLAINT: The patient is a 62-year-old female, who presents with chief complaint of shortness of breath. HISTORY OF PRESENT ILLNESS: The patient has a history of chronic obstructive pulmonary disease. The patient was last admitted to [facility] in July 2017. Please see history and physical and discharge summary dictated at that time. The patient presented to [place] emergency room complaining of a two-day history of shortness of breath. The patient had been using her inhalers without any relief. The patient presented to [place] emergency room. The patient was admitted for acute exacerbation of chronic obstructive pulmonary disease. PAST MEDICAL HISTORY: Significant for chronic obstructive pulmonary disease. PAST SURGICAL HISTORY: The patient denies. CURRENT MEDICATIONS: 1. Cardizem 30 mg p.o. three times . 2. Advair 45/21 two puffs p.o. twice daily. 3. [place] 5/325 mg one tablet p.o. q.6 hours p.r.n. 4. Spiriva 18 mcg one puff p.o. daily. ALLERGIES: No known drug allergies. SOCIAL HISTORY: The patient is single. The patient lives alone. The patient admits to tobacco use. The patient denies alcohol use. REVIEW OF SYSTEMS: CONSTITUTIONAL: The patient denies weight loss or weight gain. The patient denies fevers or chills. HEENT: The patient denies ear or throat pain. The patient denies headache. CARDIOVASCULAR: The patient denies palpitations or chest pain. CHEST: The patient complains of shortness of breath as above. The patient complains of wheezes as above. ABDOMEN: The patient denies nausea, vomiting, diarrhea, or constipation. GENITOURINARY: The patient denies dysuria or increased frequency of urination. NEUROMUSCULAR: The patient denies seizures or generalized weakness. PHYSICAL EXAMINATION: VITAL SIGNS: Temperature 97.8, respirations 22, pulse 79, and blood pressure 148/75. GENERAL: The patient is well-developed and well-nourished female, in no apparent distress. HEENT: Eyes, pupils equal and responsive to light and accommodation. Extraocular movements are intact. NECK: Supple without lymphadenopathy. CHEST: Lungs are clear to auscultation bilaterally. A few scattered wheezes in bilateral lung meadows. Otherwise, clear to auscultation bilaterally without wheezes or rales. CARDIOVASCULAR: Regular rate. S1, S2 normal without murmurs, rubs, or gallops. ABDOMEN: Soft, nontender, and nondistended. Positive bowel sounds. No evidence of hepatosplenomegaly. Currently, no rebound or guarding noted. EXTREMITIES: Negative for clubbing, cyanosis, or edema. RECTAL/GENITAL: Refused. NEUROLOGIC: Cranial nerves II through XII are grossly intact without focal deficits. Motor strength is 5/5 bilaterally. Deep tendon reflexes are 2+ plantar. LABORATORY STUDIES: WBC 8.4, hemoglobin 13.1, hematocrit 43.6, platelets 212,000. Sodium 144, potassium 4.3, chloride 101, CO2 37, BUN 23, creatinine 0.8, and glucose 90. Troponin 0.0. Chest x-ray was reported as hyperinflation of the lungs, otherwise without consolidation. ASSESSMENT: This is a 62-year-old female. 1. Shortness of breath. 2. Acute exacerbation of chronic obstructive pulmonary disease. 3. Hypertension. TREATMENT: 1. Shortness of breath/acute exacerbation of chronic obstructive pulmonary disease. A Pulmonary consultation has been obtained with Dr. Jakob Hoang. The patient has been started empirically on albuterol nebulized q.4 hours p.r.n. The patient has also been started on methadone for dyspnea. 2. Hypertension. Continue diltiazem as above. Manfred Jenkins M.D. DR: VENTURA JOB#: [id number] CC:
--- NOTE | 2017-12-03 07:00 | History and Physical Report ---
DATE OF ADMISSION: 12/01/2017 CHIEF COMPLAINT: The patient is a 62-year-old female, who presents with chief complaint of shortness of breath. HISTORY OF PRESENT ILLNESS: The patient has a history of chronic obstructive pulmonary disease. The patient was last admitted to [facility] in July 2017. Please see history and physical and discharge summary dictated at that time. The patient presented to [place] emergency room complaining of a two-day history of shortness of breath. The patient had been using her inhalers without any relief. The patient presented to [place] emergency room. The patient was admitted for acute exacerbation of chronic obstructive pulmonary disease. PAST MEDICAL HISTORY: Significant for chronic obstructive pulmonary disease. PAST SURGICAL HISTORY: The patient denies. CURRENT MEDICATIONS: 1. Cardizem 30 mg p.o. three times . 2. Advair 45/21 two puffs p.o. twice daily. 3. [place] 5/325 mg one tablet p.o. q.6 hours p.r.n. 4. Spiriva 18 mcg one puff p.o. daily. ALLERGIES: No known drug allergies. SOCIAL HISTORY: The patient is single. The patient lives alone. The patient admits to tobacco use. The patient denies alcohol use. REVIEW OF SYSTEMS: CONSTITUTIONAL: The patient denies weight loss or weight gain. The patient denies fevers or chills. HEENT: The patient denies ear or throat pain. The patient denies headache. CARDIOVASCULAR: The patient denies palpitations or chest pain. CHEST: The patient complains of shortness of breath as above. The patient complains of wheezes as above. ABDOMEN: The patient denies nausea, vomiting, diarrhea, or constipation. GENITOURINARY: The patient denies dysuria or increased frequency of urination. NEUROMUSCULAR: The patient denies seizures or generalized weakness. PHYSICAL EXAMINATION: VITAL SIGNS: Temperature 97.8, respirations 22, pulse 79, and blood pressure 148/75. GENERAL: The patient is well-developed and well-nourished female, in no apparent distress. HEENT: Eyes, pupils equal and responsive to light and accommodation. Extraocular movements are intact. NECK: Supple without lymphadenopathy. CHEST: Lungs are clear to auscultation bilaterally. A few scattered wheezes in bilateral lung meadows. Otherwise, clear to auscultation bilaterally without wheezes or rales. CARDIOVASCULAR: Regular rate. S1, S2 normal without murmurs, rubs, or gallops. ABDOMEN: Soft, nontender, and nondistended. Positive bowel sounds. No evidence of hepatosplenomegaly. Currently, no rebound or guarding noted. EXTREMITIES: Negative for clubbing, cyanosis, or edema. RECTAL/GENITAL: Refused. NEUROLOGIC: Cranial nerves II through XII are grossly intact without focal deficits. Motor strength is 5/5 bilaterally. Deep tendon reflexes are 2+ plantar. LABORATORY STUDIES: WBC 8.4, hemoglobin 13.1, hematocrit 43.6, platelets 212,000. Sodium 144, potassium 4.3, chloride 101, CO2 37, BUN 23, creatinine 0.8, and glucose 90. Troponin 0.0. Chest x-ray was reported as hyperinflation of the lungs, otherwise without consolidation. ASSESSMENT: This is a 62-year-old female. 1. Shortness of breath. 2. Acute exacerbation of chronic obstructive pulmonary disease. 3. Hypertension. TREATMENT: 1. Shortness of breath/acute exacerbation of chronic obstructive pulmonary disease. A Pulmonary consultation has been obtained with Dr. Jakob Hoang. The patient has been started empirically on albuterol nebulized q.4 hours p.r.n. The patient has also been started on methadone for dyspnea. 2. Hypertension. Continue diltiazem as above. Manfred Jenkins M.D. DR: VENTURA JOB#: [id number] CC:
[2017-12-03] MEDS: dilTIAZem HCl 30mg tab ORAL SCH ×6 (08:56→21:00)
[2017-12-03] MEDS: Norco 5mg/325mg tab ORAL PRN ×2 (08:56→16:46)
[2017-12-03] MEDS: Heparin 5000 units/ml inj SUBQ SCH ×2 (08:58→22:02)
[2017-12-03] MEDS ORDERED: METHADONE HCL5 MG ORAL (13:21)
--- NOTE | 2017-12-03 14:56 | Internal Med Progress Note ---
Subjective Physician Name Bartolome Ye Attending Physician Bartolome Ye MD Current Medications Medications (Trade) Dose Ordered Sig/Rochelle Route PRN Reason Start Time Stop Time Status Last Admin Dose Admin Acetaminophen/ Hydrocodone Bitart ([place] 5/325) 1 tab Q6H PRN ORAL For Moderate Pain(4-6) 12/02/17 19:00 12/09/17 18:59 12/03/17 08:56 Albuterol/ Ipratropium (Albuterol/ Ipratropium) 3 ml Q4H PRN HHN dyspnea 12/02/17 19:00 12/07/17 18:59 Dextrose (Dextrose 50%) 25 ml Q30M PRN IV Hypoglycemia 12/02/17 19:00 01/01/18 08:28 Dextrose (Dextrose 50%) 50 ml Q30M PRN IV Hypoglycemia 12/02/17 19:00 01/01/18 08:29 Diltiazem HCl (Cardizem) 30 mg QID ORAL 12/02/17 21:00 01/01/18 08:59 12/03/17 14:49 Heparin Sodium (Porcine) (Heparin 5000 units/ml) 5,000 units EVERY 12 HOURS SUBQ 12/02/17 21:00 01/01/18 08:59 12/03/17 08:58 Lorazepam (Ativan 2mg/ml 1ml) 0.5 mg Q4H PRN IV For Anxiety 12/02/17 19:00 12/09/17 18:59 Methadone HCl (Methadone HCl) 2.5 mg EVERY 12 HOURS ORAL 12/02/17 21:00 12/09/17 20:59 Morphine Sulfate (Morphine Sulfate) 2 mg Q4H PRN IVP severe pain 7-10 12/02/17 19:00 12/09/17 18:59 Nitroglycerin (Ntg) 0.4 mg Q5M X 3 DOSES PRN SL Prn Chest Pain 12/02/17 19:00 01/01/18 18:59 Ondansetron HCl (Zofran) 4 mg Q6H PRN IVP Nausea & Vomiting 12/02/17 20:45 01/01/18 08:32 12/03/17 08:55 Promethazine HCl/ Codeine (Phenergan with Codeine) 5 ml Q6H PRN ORAL cough 12/02/17 19:00 01/01/18 18:59 Temazepam (Restoril) 15 mg HSPRN PRN ORAL Insomnia 12/02/17 21:00 12/09/17 20:59 Tiotropium [place] (Spiriva Inhaler) 1 puff DAILY@1100 INH 12/03/17 11:00 01/01/18 10:59 12/03/17 12:00 Allergies: Coded Allergies: No Known Allergies (Unverified , 08/10/17) Subjective awake, alert, responsive, C/O SOB and VASQUEZ Objective Last Vital Signs Date Time Temp Pulse Resp B/P (MAP) Pulse Ox O2 Delivery O2 Flow Rate FiO2 12/03/17 14:49 91 137/73 12/03/17 12:03 95 Nasal Cannula 2.0 28 12/03/17 12:00 97.9 19 97.9 Intake and Output 12/02/17 12/03/17 19:00 07:00 Intake Total 1200 ml Balance 1200 ml Intake Oral 1200 ml # Voids 1 2 Objective General: No acute distress, awake and alert, Cachexia HEENT: NCAT, sclera anicteric, PERRL, EOMI. Neck: Supple, no significant jugular venous distention, Lungs: Good inspiratory effort, Decrease air on bases, no Wheeze or Rales. Heart: Regular rate and rhythm, normal S1/S2, no murmurs Abdomen: soft, nontender, nondistended. Normoactive bowel sounds. Extremities: No Cyanosis , clubbing or edema. Neuro: A&O x 3, Able to move all extremities Skin: warm, no rashes or lesions Psych: Normal mood and affect Assessment/Plan Assessment/Plan 1. Shortness of breath. 2. Acute exacerbation of chronic obstructive pulmonary disease. Plan; Neb Tx O2 PT ambulation DC planning to SNF. Bartolome Ye MD Dec 03, 2017 14:56
--- NOTE | 2017-12-03 15:30 | Cardiology Report ---
APPROVED REPORT EKG Measurement Heart [id number] Sinus tachycardia Right atrial enlargement Left axis deviation Pulmonary disease pattern Abnormal ECG
[2017-12-03] MEDS ORDERED: Levalbuterol Inh UD 1.25mg/0.5ml HHN PRN (18:45)
[2017-12-04] VITALS: BP 138/90
[2017-12-04 04:44] VITALS: BP 130/85
[2017-12-04] MEDS: dilTIAZem HCl 30mg tab ORAL SCH ×4 (04:57→21:48)
[2017-12-04] MEDS: Norco 5mg/325mg tab ORAL PRN ×3 (04:58→18:43)
[2017-12-04 08:00] VITALS: BP 110/69
[2017-12-04] MEDS: Heparin 5000 units/ml inj SUBQ SCH ×2 (08:25→21:49)
[2017-12-04 12:00] VITALS: BP 141/94
--- NOTE | 2017-12-04 12:02 | Pulmonology Progress Note ---
Assessment/Plan Problems: (1) Acute on chronic respiratory failure (2) COPD exacerbation (3) Emphysema lung Assessment/Plan pt wants us to find a small condo for her where she can move in respiratory treatment check sputum no new events all reviewed Subjective ROS Limited/Unobtainable: No Constitutional: Reports: no symptoms HEENT: Repors: no symptoms Allergies: Coded Allergies: No Known Allergies (Unverified , 08/10/17) Objective Last 24 Hour Vital Signs Date Time Temp Pulse Resp B/P (MAP) Pulse Ox O2 Delivery O2 Flow Rate FiO2 12/04/17 09:00 Nasal Cannula 3.0 12/04/17 08:48 96 Nasal Cannula 3.0 32 12/04/17 08:47 Nasal Cannula 2.0 28 12/04/17 08:00 98.5 106 21 110/69 (83) 94 98.5 12/04/17 05:28 98.7 12/04/17 04:58 98.7 12/04/17 04:57 90 130/85 12/04/17 04:44 98.7 90 18 130/85 (100) 100 98.7 12/04/17 00:00 97.6 98 18 138/90 (106) 100 97.6 12/03/17 23:02 Nasal Cannula 2.0 12/03/17 21:18 90 20 99 Nasal Cannula 2.0 12/03/17 21:13 Nasal Cannula 2.0 28 12/03/17 21:13 88 20 99 Nasal Cannula 2.0 28 12/03/17 21:12 99 Nasal Cannula 2.0 28 12/03/17 20:00 97.9 100 18 135/78 (97) 100 97.9 12/03/17 17:28 78 143/97 12/03/17 17:15 Nasal Cannula 2.0 12/03/17 17:12 78 22 90 Nasal Cannula 2.0 28 12/03/17 16:46 97.5 12/03/17 16:00 97.5 84 19 143/97 (112) 99 97.5 12/03/17 12:03 95 Nasal Cannula 2.0 28 12/03/17 12:03 Nasal Cannula 2.0 28 Intake and Output 12/03/17 12/04/17 19:00 07:00 Intake Total 450 ml Balance 450 ml Intake Oral 450 ml # Voids 3 General Appearance: cachetic HEENT: normocephalic, atraumatic Respiratory/Chest: chest wall non-tender, lungs clear Breasts: no masses Cardiovascular: normal rate Abdomen: normal bowel sounds, soft, non tender Genitourinary: normal external genitalia Extremities: no clubbing Current Medications Medications (Trade) Dose Ordered Sig/Rochelle Route PRN Reason Start Time Stop Time Status Last Admin Dose Admin Acetaminophen/ Hydrocodone Bitart ([place] 5/325) 1 tab Q6H PRN ORAL For Moderate Pain(4-6) 12/02/17 19:00 12/09/17 18:59 12/04/17 04:58 Dextrose (Dextrose 50%) 25 ml Q30M PRN IV Hypoglycemia 12/02/17 19:00 01/01/18 08:28 Dextrose (Dextrose 50%) 50 ml Q30M PRN IV Hypoglycemia 12/02/17 19:00 01/01/18 08:29 Diltiazem HCl (Cardizem) 30 mg QID ORAL 12/02/17 21:00 01/01/18 08:59 12/04/17 04:57 Heparin Sodium (Porcine) (Heparin 5000 units/ml) 5,000 units EVERY 12 HOURS SUBQ 12/02/17 21:00 01/01/18 08:59 12/04/17 08:25 Ibuprofen (Motrin) 600 mg Q6H PRN ORAL For Pain 12/03/17 14:56 01/02/18 14:55 Levalbuterol HCl (Xopenex) 1.25 mg Q4H PRN HHN Shortness of Breath 12/03/17 18:45 12/08/17 18:44 12/03/17 21:14 Lorazepam (Ativan 2mg/ml 1ml) 0.5 mg Q4H PRN IV For Anxiety 12/02/17 19:00 12/09/17 18:59 Morphine Sulfate (Morphine Sulfate) 2 mg Q4H PRN IVP severe pain 7-10 12/02/17 19:00 12/09/17 18:59 Nitroglycerin (Ntg) 0.4 mg Q5M X 3 DOSES PRN SL Prn Chest Pain 12/02/17 19:00 01/01/18 18:59 Ondansetron HCl (Zofran) 4 mg Q6H PRN IVP Nausea & Vomiting 12/02/17 20:45 01/01/18 08:32 12/03/17 17:33 Promethazine HCl/ Codeine (Phenergan with Codeine) 5 ml Q6H PRN ORAL cough 12/02/17 19:00 01/01/18 18:59 Temazepam (Restoril) 15 mg HSPRN PRN ORAL Insomnia 12/02/17 21:00 12/09/17 20:59 Tiotropium [place] (Spiriva Inhaler) 1 puff DAILY@1100 INH 12/03/17 11:00 01/01/18 10:59 12/04/17 08:43 Jakob Hoang MD Dec 04, 2017 12:02
[2017-12-04] MEDS ORDERED: Tubing IV Secondary IV ONE (15:21)
[2017-12-04 16:00] VITALS: BP 132/79
--- NOTE | 2017-12-04 17:42 | Internal Med Progress Note ---
Subjective Date of Service: Dec 04, 2017 Physician Name Manfred Jenkins Attending Physician Bartolome Ye MD Current Medications Medications (Trade) Dose Ordered Sig/Rochelle Route PRN Reason Start Time Stop Time Status Last Admin Dose Admin Acetaminophen/ Hydrocodone Bitart ([place] 5/325) 1 tab Q6H PRN ORAL For Moderate Pain(4-6) 12/02/17 19:00 12/09/17 18:59 12/04/17 12:15 Dextrose (Dextrose 50%) 25 ml Q30M PRN IV Hypoglycemia 12/02/17 19:00 01/01/18 08:28 Dextrose (Dextrose 50%) 50 ml Q30M PRN IV Hypoglycemia 12/02/17 19:00 01/01/18 08:29 Diltiazem HCl (Cardizem) 30 mg QID ORAL 12/02/17 21:00 01/01/18 08:59 12/04/17 17:04 Heparin Sodium (Porcine) (Heparin 5000 units/ml) 5,000 units EVERY 12 HOURS SUBQ 12/02/17 21:00 01/01/18 08:59 12/04/17 08:25 Ibuprofen (Motrin) 600 mg Q6H PRN ORAL For Pain 12/03/17 14:56 01/02/18 14:55 Levalbuterol HCl (Xopenex) 1.25 mg Q4H PRN HHN Shortness of Breath 12/03/17 18:45 12/08/17 18:44 12/03/17 21:14 Lorazepam (Ativan 2mg/ml 1ml) 0.5 mg Q4H PRN IV For Anxiety 12/02/17 19:00 12/09/17 18:59 Morphine Sulfate (Morphine Sulfate) 2 mg Q4H PRN IVP severe pain 7-10 12/02/17 19:00 12/09/17 18:59 Nitroglycerin (Ntg) 0.4 mg Q5M X 3 DOSES PRN SL Prn Chest Pain 12/02/17 19:00 01/01/18 18:59 Ondansetron HCl (Zofran) 4 mg Q6H PRN IVP Nausea & Vomiting 12/02/17 20:45 01/01/18 08:32 12/04/17 17:34 Promethazine HCl/ Codeine (Phenergan with Codeine) 5 ml Q6H PRN ORAL cough 12/02/17 19:00 01/01/18 18:59 Temazepam (Restoril) 15 mg HSPRN PRN ORAL Insomnia 12/02/17 21:00 12/09/17 20:59 Tiotropium [place] (Spiriva Inhaler) 1 puff DAILY@1100 INH 12/03/17 11:00 01/01/18 10:59 12/04/17 08:43 Allergies: Coded Allergies: No Known Allergies (Unverified , 08/10/17) ROS Limited/Unobtainable: No Constitutional: Reports: no symptoms HEENT: Reports: no symptoms Cardiovascular: Reports: no symptoms Respiratory: Reports: shortness of breath Gastrointestinal/Abdominal: Reports: no symptoms Genitourinary: Reports: no symptoms Neurologic/Psychiatric: Reports: no symptoms Subjective 62 YO F admitted with shortness of breath. Now COPD exacerbation. Cover for Int Med-Dr Ye Objective Last Vital Signs Date Time Temp Pulse Resp B/P (MAP) Pulse Ox O2 Delivery O2 Flow Rate FiO2 12/04/17 17:04 108 132/79 12/04/17 16:00 98.7 20 97 98.7 12/04/17 09:00 Nasal Cannula 3.0 12/04/17 08:48 32 Intake and Output 12/03/17 12/04/17 19:00 07:00 Intake Total 450 ml Balance 450 ml Intake Oral 450 ml # Voids 3 Objective PHYSICAL EXAMINATION: GENERAL: The patient is well-developed and well-nourished female, in no apparent distress. HEENT: Eyes, pupils equal and responsive to light and accommodation. Extraocular movements are intact. NECK: Supple without lymphadenopathy. CHEST: Lungs are clear to auscultation bilaterally. A few scattered wheezes in bilateral lung meadows. Otherwise, clear to auscultation bilaterally without wheezes or rales. CARDIOVASCULAR: Regular rate. S1, S2 normal without murmurs, rubs, or gallops. ABDOMEN: Soft, nontender, and nondistended. Positive bowel sounds. No evidence of hepatosplenomegaly. Currently, no rebound or guarding noted. EXTREMITIES: Negative for clubbing, cyanosis, or edema. RECTAL/GENITAL: Refused. NEUROLOGIC: Cranial nerves II through XII are grossly intact without focal deficits. Motor strength is 5/5 bilaterally. Deep tendon reflexes are 2+ plantar. Assessment/Plan Problem List: (1) HTN (hypertension) Assessment & Plan: Continue cardizem (2) COPD exacerbation Assessment & Plan: Continue xopenex and spiriva-see pulmonary note. (3) Chronic respiratory failure Manfred Jenkins MD Dec 04, 2017 17:42
[2017-12-04 20:00] VITALS: BP 109/74
[2017-12-05] VITALS: BP 133/70
[2017-12-05] MEDS: Norco 5mg/325mg tab ORAL PRN ×2 (03:31→14:42)
[2017-12-05 04:00] VITALS: BP 131/88
[2017-12-05 06:31] LABS: BASOPHILS % (AUTO) 2.2 % (0.0-2.0); EOSINOPHILS % (AUTO) 5.3 % (0.0-3.0); HEMATOCRIT 35.9 % (37.0-47.0); HEMOGLOBIN 10.4 G/DL (12.0-16.0); MEAN CORPUSCULAR VOLUME 80 FL (80-99); MONOCYTES % (AUTO) 17.1 % (1.0-10.0); NEUTROPHILS % (AUTO) 55.5 % (45.0-75.0); PLATELET COUNT 166 K/UL (150-450); RED BLOOD COUNT 4.49 M/UL (4.20-5.40); RED CELL DISTRIBUTION WIDTH 18.9 % (11.6-14.8); WHITE BLOOD COUNT 3.7 K/UL (4.8-10.8)
[2017-12-05 07:00] LABS: ANION GAP -1 mmol/L (5-15); BLOOD UREA NITROGEN 13 mg/dL (7-18); CALCIUM 8.6 MG/DL (8.5-10.1); CARBON DIOXIDE 40 MMOL/L (21-32); CHLORIDE 102 MMOL/L (98-107); CREATININE 0.6 MG/DL (0.55-1.30); POTASSIUM 4.8 MMOL/L (3.5-5.1); SODIUM 141 MMOL/L (136-145)
[2017-12-05 08:00] VITALS: BP 142/91
[2017-12-05] MEDS: dilTIAZem HCl 30mg tab ORAL SCH ×4 (10:18→21:18)
[2017-12-05] MEDS: Heparin 5000 units/ml inj SUBQ SCH ×2 (10:20→21:23)
[2017-12-05 12:00] VITALS: BP 163/91
--- NOTE | 2017-12-05 14:58 | Pulmonology Progress Note ---
Assessment/Plan Assessment/Plan PULMONARY PROGRESS NOTE Assessment/Plan Problems: (1) Acute on chronic respiratory failure (2) COPD exacerbation (3) Emphysema lung Continue Steroids/HHN PPx [employer] medications Subjective Allergies: Coded Allergies: No Known Allergies (Unverified , 08/10/17) Objective Last 24 Hour Vital Signs Date Time Temp Pulse Resp B/P (MAP) Pulse Ox O2 Delivery O2 Flow Rate FiO2 12/04/17 09:00 Nasal Cannula 3.0 12/04/17 08:48 96 Nasal Cannula 3.0 32 12/04/17 08:47 Nasal Cannula 2.0 28 12/04/17 08:00 98.5 106 21 110/69 (83) 94 98.5 12/04/17 05:28 98.7 12/04/17 04:58 98.7 12/04/17 04:57 90 130/85 12/04/17 04:44 98.7 90 18 130/85 (100) 100 98.7 12/04/17 00:00 97.6 98 18 138/90 (106) 100 97.6 12/03/17 23:02 Nasal Cannula 2.0 12/03/17 21:18 90 20 99 Nasal Cannula 2.0 12/03/17 21:13 Nasal Cannula 2.0 28 12/03/17 21:13 88 20 99 Nasal Cannula 2.0 28 12/03/17 21:12 99 Nasal Cannula 2.0 28 12/03/17 20:00 97.9 100 18 135/78 (97) 100 97.9 12/03/17 17:28 78 143/97 12/03/17 17:15 Nasal Cannula 2.0 12/03/17 17:12 78 22 90 Nasal Cannula 2.0 28 12/03/17 16:46 97.5 12/03/17 16:00 97.5 84 19 143/97 (112) 99 97.5 12/03/17 12:03 95 Nasal Cannula 2.0 28 12/03/17 12:03 Nasal Cannula 2.0 28 Intake and Output 12/03/17 12/04/17 19:00 07:00 Intake Total 450 ml Balance 450 ml Intake Oral 450 ml # Voids 3 Current Medications Medications (Trade) Dose Ordered Sig/Rochelle Route PRN Reason Start Time Stop Time Status Last Admin Dose Admin Acetaminophen/ Hydrocodone Bitart ([place] 5/325) 1 tab Q6H PRN ORAL For Moderate Pain(4-6) 12/02/17 19:00 12/09/17 18:59 12/04/17 04:58 Dextrose (Dextrose 50%) 25 ml Q30M PRN IV Hypoglycemia 12/02/17 19:00 01/01/18 08:28 Dextrose (Dextrose 50%) 50 ml Q30M PRN IV Hypoglycemia 12/02/17 19:00 01/01/18 08:29 Diltiazem HCl (Cardizem) 30 mg QID ORAL 12/02/17 21:00 01/01/18 08:59 12/04/17 04:57 Heparin Sodium (Porcine) (Heparin 5000 units/ml) 5,000 units EVERY 12 HOURS SUBQ 12/02/17 21:00 01/01/18 08:59 12/04/17 08:25 Ibuprofen (Motrin) 600 mg Q6H PRN ORAL For Pain 12/03/17 14:56 01/02/18 14:55 Levalbuterol HCl (Xopenex) 1.25 mg Q4H PRN HHN Shortness of Breath 12/03/17 18:45 12/08/17 18:44 12/03/17 21:14 Lorazepam (Ativan 2mg/ml 1ml) 0.5 mg Q4H PRN IV For Anxiety 12/02/17 19:00 12/09/17 18:59 Morphine Sulfate (Morphine Sulfate) 2 mg Q4H PRN IVP severe pain 7-10 12/02/17 19:00 12/09/17 18:59 Nitroglycerin (Ntg) 0.4 mg Q5M X 3 DOSES PRN SL Prn Chest Pain 12/02/17 19:00 01/01/18 18:59 Ondansetron HCl (Zofran) 4 mg Q6H PRN IVP Nausea & Vomiting 12/02/17 20:45 01/01/18 08:32 12/03/17 17:33 Promethazine HCl/ Codeine (Phenergan with Codeine) 5 ml Q6H PRN ORAL cough 12/02/17 19:00 01/01/18 18:59 Temazepam (Restoril) 15 mg HSPRN PRN ORAL Insomnia 12/02/17 21:00 12/09/17 20:59 Tiotropium [place] (Spiriva Inhaler) 1 puff DAILY@1100 INH 12/03/17 11:00 01/01/18 10:59 12/04/17 08:43 Subjective ROS Limited/Unobtainable: No Allergies: Coded Allergies: No Known Allergies (Unverified , 08/10/17) Objective Last 24 Hour Vital Signs Date Time Temp Pulse Resp B/P (MAP) Pulse Ox O2 Delivery O2 Flow Rate FiO2 12/05/17 14:42 101 163/91 12/05/17 12:21 99 Nasal Cannula 3.0 32 12/05/17 12:21 Nasal Cannula 3.0 32 12/05/17 12:21 101 20 Nasal Cannula 3.0 32 12/05/17 12:00 99.0 115 19 163/91 (115) 99 99.0 12/05/17 10:18 108 142/91 12/05/17 09:00 Nasal Cannula 3.0 12/05/17 08:00 97.6 108 18 142/91 (108) 96 97.6 12/05/17 04:01 98.6 12/05/17 04:00 97.6 90 17 131/88 (102) 100 97.6 12/05/17 03:31 98.6 12/05/17 00:00 98.6 98 15 133/70 (91) 100 98.6 12/04/17 21:48 102 129/74 12/04/17 21:00 Nasal Cannula 3.0 12/04/17 20:00 97.6 102 17 109/74 (86) 96 97.6 12/04/17 19:51 Nasal Cannula 3.0 32 12/04/17 19:50 106 22 Nasal Cannula 3.0 32 12/04/17 19:50 97 Nasal Cannula 3.0 32 12/04/17 18:43 98.7 12/04/17 17:04 108 132/79 12/04/17 16:00 98.7 108 20 132/79 (96) 97 98.7 Intake and Output 12/04/17 12/05/17 19:00 07:00 Intake Total 360 ml 480 ml Balance 360 ml 480 ml Intake Oral 360 ml 480 ml # Voids 4 2 # Bowel Movements 1 Laboratory Tests 12/05/17 04:50: White Blood Count 3.7L, Red Blood Count 4.49, Hemoglobin 10.4L, Hematocrit 35.9L , Mean Corpuscular Volume 80, Mean Corpuscular Hemoglobin 23.1L, Mean Corpuscular Hemoglobin Concent 28.9L, Red Cell Distribution Width 18.9H, Platelet Count 166, Mean Platelet Volume 9.0, Neutrophils (%) (Auto) 55.5, Lymphocytes (%) (Auto) 20.0, Monocytes (%) (Auto) 17.1H, Eosinophils (%) (Auto) 5.3H, Basophils (%) (Auto) 2.2H, Sodium Level 141, Potassium Level 4.8, Chloride Level 102, Carbon Dioxide Level 40H, Anion Gap -1L, Blood Urea Nitrogen 13, Creatinine 0.6, Estimat Glomerular Filtration Rate > 60, Glucose Level 86, Calcium Level 8.6 Current Medications Medications (Trade) Dose Ordered Sig/Rochelle Route PRN Reason Start Time Stop Time Status Last Admin Dose Admin Acetaminophen/ Hydrocodone Bitart ([place] 5/325) 1 tab Q6H PRN ORAL For Moderate Pain(4-6) 12/02/17 19:00 12/09/17 18:59 12/05/17 14:42 Dextrose (Dextrose 50%) 25 ml Q30M PRN IV Hypoglycemia 12/02/17 19:00 01/01/18 08:28 Dextrose (Dextrose 50%) 50 ml Q30M PRN IV Hypoglycemia 12/02/17 19:00 01/01/18 08:29 Diltiazem HCl (Cardizem) 30 mg QID ORAL 12/02/17 21:00 01/01/18 08:59 12/05/17 14:42 Heparin Sodium (Porcine) (Heparin 5000 units/ml) 5,000 units EVERY 12 HOURS SUBQ 12/02/17 21:00 01/01/18 08:59 12/05/17 10:20 Ibuprofen (Motrin) 600 mg Q6H PRN ORAL For Pain 12/03/17 14:56 01/02/18 14:55 Levalbuterol HCl (Xopenex) 1.25 mg Q4H PRN HHN Shortness of Breath 12/03/17 18:45 12/08/17 18:44 12/03/17 21:14 Lorazepam (Ativan 2mg/ml 1ml) 0.5 mg Q4H PRN IV For Anxiety 12/02/17 19:00 12/09/17 18:59 Morphine Sulfate (Morphine Sulfate) 2 mg Q4H PRN IVP severe pain 7-10 12/02/17 19:00 12/09/17 18:59 Nitroglycerin (Ntg) 0.4 mg Q5M X 3 DOSES PRN SL Prn Chest Pain 12/02/17 19:00 01/01/18 18:59 Ondansetron HCl (Zofran) 4 mg Q6H PRN IVP Nausea & Vomiting 12/02/17 20:45 01/01/18 08:32 12/05/17 10:22 Promethazine HCl/ Codeine (Phenergan with Codeine) 5 ml Q6H PRN ORAL cough 12/02/17 19:00 01/01/18 18:59 Temazepam (Restoril) 15 mg HSPRN PRN ORAL Insomnia 12/02/17 21:00 12/09/17 20:59 Tiotropium [place] (Spiriva Inhaler) 1 puff DAILY@1100 INH 12/03/17 11:00 01/01/18 10:59 12/05/17 12:21 Olaf Restrepo MD Dec 05, 2017 14:58
--- NOTE | 2017-12-05 15:37 | Internal Med Progress Note ---
Subjective Date of Service: Dec 05, 2017 Physician Name Manfred Jenkins Attending Physician Bartolome Ye MD Current Medications Medications (Trade) Dose Ordered Sig/Rochelle Route PRN Reason Start Time Stop Time Status Last Admin Dose Admin Acetaminophen/ Hydrocodone Bitart ([place] 5/325) 1 tab Q6H PRN ORAL For Moderate Pain(4-6) 12/02/17 19:00 12/09/17 18:59 12/05/17 14:42 Dextrose (Dextrose 50%) 25 ml Q30M PRN IV Hypoglycemia 12/02/17 19:00 01/01/18 08:28 Dextrose (Dextrose 50%) 50 ml Q30M PRN IV Hypoglycemia 12/02/17 19:00 01/01/18 08:29 Diltiazem HCl (Cardizem) 30 mg QID ORAL 12/02/17 21:00 01/01/18 08:59 12/05/17 14:42 Heparin Sodium (Porcine) (Heparin 5000 units/ml) 5,000 units EVERY 12 HOURS SUBQ 12/02/17 21:00 01/01/18 08:59 12/05/17 10:20 Ibuprofen (Motrin) 600 mg Q6H PRN ORAL For Pain 12/03/17 14:56 01/02/18 14:55 Levalbuterol HCl (Xopenex) 1.25 mg Q4H PRN HHN Shortness of Breath 12/03/17 18:45 12/08/17 18:44 12/03/17 21:14 Lorazepam (Ativan 2mg/ml 1ml) 0.5 mg Q4H PRN IV For Anxiety 12/02/17 19:00 12/09/17 18:59 Morphine Sulfate (Morphine Sulfate) 2 mg Q4H PRN IVP severe pain 7-10 12/02/17 19:00 12/09/17 18:59 Nitroglycerin (Ntg) 0.4 mg Q5M X 3 DOSES PRN SL Prn Chest Pain 12/02/17 19:00 01/01/18 18:59 Ondansetron HCl (Zofran) 4 mg Q6H PRN IVP Nausea & Vomiting 12/02/17 20:45 01/01/18 08:32 12/05/17 10:22 Promethazine HCl/ Codeine (Phenergan with Codeine) 5 ml Q6H PRN ORAL cough 12/02/17 19:00 01/01/18 18:59 Temazepam (Restoril) 15 mg HSPRN PRN ORAL Insomnia 12/02/17 21:00 12/09/17 20:59 Tiotropium [place] (Spiriva Inhaler) 1 puff DAILY@1100 INH 12/03/17 11:00 01/01/18 10:59 12/05/17 12:21 Allergies: Coded Allergies: No Known Allergies (Unverified , 08/10/17) ROS Limited/Unobtainable: No Constitutional: Reports: no symptoms HEENT: Reports: no symptoms Cardiovascular: Reports: no symptoms Respiratory: Reports: shortness of breath Gastrointestinal/Abdominal: Reports: no symptoms Genitourinary: Reports: no symptoms Neurologic/Psychiatric: Reports: no symptoms Subjective 62 YO F admitted with shortness of breath. Now COPD exacerbation. Cover for Int Med-Dr Ye. Await detention facility placement Objective Last Vital Signs Date Time Temp Pulse Resp B/P (MAP) Pulse Ox O2 Delivery O2 Flow Rate FiO2 12/05/17 14:42 101 163/91 12/05/17 12:21 99 Nasal Cannula 3.0 32 12/05/17 12:21 20 12/05/17 12:00 99.0 99.0 Laboratory Tests Test 12/05/17 04:50 White Blood Count 3.7 K/UL (4.8-10.8) L Red Blood Count 4.49 M/UL (4.20-5.40) Hemoglobin 10.4 G/DL (12.0-16.0) L Hematocrit 35.9 % (37.0-47.0) L Mean Corpuscular Volume 80 FL (80-99) Mean Corpuscular Hemoglobin 23.1 PG (27.0-31.0) L Mean Corpuscular Hemoglobin Concent 28.9 G/DL (32.0-36.0) L Red Cell Distribution Width 18.9 % (11.6-14.8) H Platelet Count 166 K/UL (150-450) Mean Platelet Volume 9.0 FL (6.5-10.1) Neutrophils (%) (Auto) 55.5 % (45.0-75.0) Lymphocytes (%) (Auto) 20.0 % (20.0-45.0) Monocytes (%) (Auto) 17.1 % (1.0-10.0) H Eosinophils (%) (Auto) 5.3 % (0.0-3.0) H Basophils (%) (Auto) 2.2 % (0.0-2.0) H Sodium Level 141 MMOL/L (136-145) Potassium Level 4.8 MMOL/L (3.5-5.1) Chloride Level 102 MMOL/L (98-107) Carbon Dioxide Level 40 MMOL/L (21-32) H Anion Gap -1 mmol/L (5-15) L Blood Urea Nitrogen 13 mg/dL (7-18) Creatinine 0.6 MG/DL (0.55-1.30) Estimat Glomerular Filtration Rate > 60 mL/min (>60) Glucose Level 86 MG/DL (74-106) Calcium Level 8.6 MG/DL (8.5-10.1) Intake and Output 12/04/17 12/05/17 19:00 07:00 Intake Total 360 ml 480 ml Balance 360 ml 480 ml Intake Oral 360 ml 480 ml # Voids 4 2 # Bowel Movements 1 Objective PHYSICAL EXAMINATION: GENERAL: The patient is well-developed and well-nourished female, in no apparent distress. HEENT: Eyes, pupils equal and responsive to light and accommodation. Extraocular movements are intact. NECK: Supple without lymphadenopathy. CHEST: Lungs are clear to auscultation bilaterally. A few scattered wheezes in bilateral lung meadows. Otherwise, clear to auscultation bilaterally without wheezes or rales. CARDIOVASCULAR: Regular rate. S1, S2 normal without murmurs, rubs, or gallops. ABDOMEN: Soft, nontender, and nondistended. Positive bowel sounds. No evidence of hepatosplenomegaly. Currently, no rebound or guarding noted. EXTREMITIES: Negative for clubbing, cyanosis, or edema. RECTAL/GENITAL: Refused. NEUROLOGIC: Cranial nerves II through XII are grossly intact without focal deficits. Motor strength is 5/5 bilaterally. Deep tendon reflexes are 2+ plantar. Assessment/Plan Problem List: (1) HTN (hypertension) Assessment & Plan: Continue cardizem (2) COPD exacerbation Assessment & Plan: Continue xopenex and spiriva-see pulmonary note. (3) Chronic respiratory failure Assessment/Plan Discharge planning: detention fac Manfred Jenkins MD Dec 05, 2017 15:37
[2017-12-05 16:00] VITALS: BP 121/80
[2017-12-05 20:00] VITALS: BP 114/86
[2017-12-05] MEDS ORDERED: Albuterol ud Inhalation HHN SCH (22:45)
[2017-12-05] MEDS: Levalbuterol Inh UD 1.25mg/0.5ml HHN SCH (23:39)
[2017-12-06] VITALS (7 sets, daily range): BP systolic 119–146; BP diastolic 77–95
[2017-12-06] MEDS: Ipratropium 0.02% Inh Soln 2.5ml UD HHN SCH ×4 (01:00→19:16)
[2017-12-06] MEDS: Norco 5mg/325mg tab ORAL PRN ×2 (02:02→22:44)
[2017-12-06] MEDS: Levalbuterol Inh UD 1.25mg/0.5ml HHN SCH ×3 (06:00→19:16)
[2017-12-06 07:29] LABS: BASOPHILS % (AUTO) 3.9 % (0.0-2.0); EOSINOPHILS % (AUTO) 4.3 % (0.0-3.0); HEMATOCRIT 35.6 % (37.0-47.0); HEMOGLOBIN 10.3 G/DL (12.0-16.0); LYMPHOCYTES % (AUTO) 23.7 % (20.0-45.0); MEAN CORPUSCULAR VOLUME 79 FL (80-99); MONOCYTES % (AUTO) 14.7 % (1.0-10.0); NEUTROPHILS % (AUTO) 53.4 % (45.0-75.0); PLATELET COUNT 154 K/UL (150-450); RED CELL DISTRIBUTION WIDTH 19.1 % (11.6-14.8); WHITE BLOOD COUNT 3.8 K/UL (4.8-10.8)
[2017-12-06 07:45] LABS: ANION GAP 2 mmol/L (5-15); BLOOD UREA NITROGEN 10 mg/dL (7-18); CALCIUM 8.4 MG/DL (8.5-10.1); CARBON DIOXIDE 39 MMOL/L (21-32); CHLORIDE 102 MMOL/L (98-107); CREATININE 0.5 MG/DL (0.55-1.30); POTASSIUM 4.4 MMOL/L (3.5-5.1); SODIUM 142 MMOL/L (136-145)
[2017-12-06] MEDS: dilTIAZem HCl 30mg tab ORAL SCH ×4 (08:30→21:05)
[2017-12-06] MEDS: Heparin 5000 units/ml inj SUBQ SCH ×2 (08:31→21:06)
[2017-12-06] MEDS: Morphine Sulfate 2mg/ml Inj IVP PRN ×2 (16:43→22:39)
--- NOTE | 2017-12-06 19:41 | Internal Med Progress Note ---
Subjective Date of Service: Dec 06, 2017 Physician Name Manfred Jenkins Attending Physician Bartolome Ye MD Current Medications Medications (Trade) Dose Ordered Sig/Rochelle Route PRN Reason Start Time Stop Time Status Last Admin Dose Admin Acetaminophen/ Hydrocodone Bitart ([place] 5/325) 1 tab Q6H PRN ORAL For Moderate Pain(4-6) 12/02/17 19:00 12/09/17 18:59 12/06/17 02:02 Dextrose (Dextrose 50%) 25 ml Q30M PRN IV Hypoglycemia 12/02/17 19:00 01/01/18 08:28 Dextrose (Dextrose 50%) 50 ml Q30M PRN IV Hypoglycemia 12/02/17 19:00 01/01/18 08:29 Diltiazem HCl (Cardizem) 30 mg QID ORAL 12/02/17 21:00 01/01/18 08:59 12/06/17 18:09 Heparin Sodium (Porcine) (Heparin 5000 units/ml) 5,000 units EVERY 12 HOURS SUBQ 12/02/17 21:00 01/01/18 08:59 12/06/17 08:31 Ibuprofen (Motrin) 600 mg Q6H PRN ORAL For Pain 12/03/17 14:56 01/02/18 14:55 Ipratropium [place] (Atrovent) 500 mcg Q6HRT HHN 12/06/17 01:00 12/11/17 00:59 12/06/17 19:16 Levalbuterol HCl (Xopenex) 0.625 mg EVERY 6 HOURS N 12/06/17 00:00 12/11/17 00:00 12/06/17 19:16 Lorazepam (Ativan 2mg/ml 1ml) 0.5 mg Q4H PRN IV For Anxiety 12/02/17 19:00 12/09/17 18:59 Morphine Sulfate (Morphine Sulfate) 2 mg Q4H PRN IVP severe pain 7-10 12/02/17 19:00 12/09/17 18:59 12/06/17 16:43 Nitroglycerin (Ntg) 0.4 mg Q5M X 3 DOSES PRN SL Prn Chest Pain 12/02/17 19:00 01/01/18 18:59 Ondansetron HCl (Zofran) 4 mg Q6H PRN IVP Nausea & Vomiting 12/02/17 20:45 01/01/18 08:32 12/06/17 08:29 Promethazine HCl/ Codeine (Phenergan with Codeine) 5 ml Q6H PRN ORAL cough 12/02/17 19:00 01/01/18 18:59 Temazepam (Restoril) 15 mg HSPRN PRN ORAL Insomnia 12/02/17 21:00 12/09/17 20:59 Tiotropium [place] (Spiriva Inhaler) 1 puff DAILY@1100 INH 12/03/17 11:00 01/01/18 10:59 12/05/17 12:21 Allergies: Coded Allergies: No Known Allergies (Unverified , 08/10/17) ROS Limited/Unobtainable: No Constitutional: Reports: no symptoms HEENT: Reports: no symptoms Cardiovascular: Reports: no symptoms Respiratory: Reports: shortness of breath Gastrointestinal/Abdominal: Reports: no symptoms Genitourinary: Reports: no symptoms Neurologic/Psychiatric: Reports: no symptoms Subjective 62 YO F admitted with shortness of breath. Now COPD exacerbation. Cover for Int Med-Dr Ye. Await detention facility placement Objective Last Vital Signs Date Time Temp Pulse Resp B/P (MAP) Pulse Ox O2 Delivery O2 Flow Rate FiO2 12/06/17 19:16 97 18 97 Nasal Cannula 3.0 32 12/06/17 18:09 146/95 12/06/17 17:13 98.5 Laboratory Tests Test 12/06/17 06:26 White Blood Count 3.8 K/UL (4.8-10.8) L Red Blood Count 4.50 M/UL (4.20-5.40) Hemoglobin 10.3 G/DL (12.0-16.0) L Hematocrit 35.6 % (37.0-47.0) L Mean Corpuscular Volume 79 FL (80-99) L Mean Corpuscular Hemoglobin 23.0 PG (27.0-31.0) L Mean Corpuscular Hemoglobin Concent 29.0 G/DL (32.0-36.0) L Red Cell Distribution Width 19.1 % (11.6-14.8) H Platelet Count 154 K/UL (150-450) Mean Platelet Volume 7.7 FL (6.5-10.1) Neutrophils (%) (Auto) 53.4 % (45.0-75.0) Lymphocytes (%) (Auto) 23.7 % (20.0-45.0) Monocytes (%) (Auto) 14.7 % (1.0-10.0) H Eosinophils (%) (Auto) 4.3 % (0.0-3.0) H Basophils (%) (Auto) 3.9 % (0.0-2.0) H Sodium Level 142 MMOL/L (136-145) Potassium Level 4.4 MMOL/L (3.5-5.1) Chloride Level 102 MMOL/L (98-107) Carbon Dioxide Level 39 MMOL/L (21-32) H Anion Gap 2 mmol/L (5-15) L Blood Urea Nitrogen 10 mg/dL (7-18) Creatinine 0.5 MG/DL (0.55-1.30) L Estimat Glomerular Filtration Rate > 60 mL/min (>60) Glucose Level 81 MG/DL (74-106) Calcium Level 8.4 MG/DL (8.5-10.1) L Intake and Output 12/05/17 12/06/17 19:00 07:00 Intake Total 240 ml 840 ml Balance 240 ml 840 ml Intake Oral 240 ml 840 ml # Voids 3 3 Objective PHYSICAL EXAMINATION: GENERAL: The patient is well-developed and well-nourished female, in no apparent distress. HEENT: Eyes, pupils equal and responsive to light and accommodation. Extraocular movements are intact. NECK: Supple without lymphadenopathy. CHEST: Lungs are clear to auscultation bilaterally. A few scattered wheezes in bilateral lung meadows. Otherwise, clear to auscultation bilaterally without wheezes or rales. CARDIOVASCULAR: Regular rate. S1, S2 normal without murmurs, rubs, or gallops. ABDOMEN: Soft, nontender, and nondistended. Positive bowel sounds. No evidence of hepatosplenomegaly. Currently, no rebound or guarding noted. EXTREMITIES: Negative for clubbing, cyanosis, or edema. RECTAL/GENITAL: Refused. NEUROLOGIC: Cranial nerves II through XII are grossly intact without focal deficits. Motor strength is 5/5 bilaterally. Deep tendon reflexes are 2+ plantar. Assessment/Plan Problem List: (1) HTN (hypertension) Assessment & Plan: Continue cardizem (2) COPD exacerbation Assessment & Plan: Continue xopenex and spiriva-see pulmonary note. (3) Chronic respiratory failure Assessment/Plan Discharge planning: detention fac Manfred Jenkins MD Dec 06, 2017 19:40
[2017-12-07 00:04] VITALS: BP 119/87
[2017-12-07] MEDS: Levalbuterol Inh UD 1.25mg/0.5ml HHN SCH ×4 (01:03→19:30)
[2017-12-07] MEDS: Ipratropium 0.02% Inh Soln 2.5ml UD HHN SCH ×4 (01:03→19:30)
[2017-12-07 04:00] VITALS: BP 107/74
[2017-12-07 06:35] LABS: BASOPHILS % (AUTO) 2.4 % (0.0-2.0); EOSINOPHILS % (AUTO) 3.2 % (0.0-3.0); HEMATOCRIT 34.6 % (37.0-47.0); HEMOGLOBIN 10.2 G/DL (12.0-16.0); MEAN CORPUSCULAR VOLUME 80 FL (80-99); MONOCYTES % (AUTO) 19.3 % (1.0-10.0); NEUTROPHILS % (AUTO) 52.1 % (45.0-75.0); PLATELET COUNT 184 K/UL (150-450); RED BLOOD COUNT 4.32 M/UL (4.20-5.40); RED CELL DISTRIBUTION WIDTH 18.6 % (11.6-14.8)
[2017-12-07 07:15] LABS: BLOOD UREA NITROGEN 14 mg/dL (7-18); CHLORIDE 102 MMOL/L (98-107); CREATININE 0.5 MG/DL (0.55-1.30); POTASSIUM 4.8 MMOL/L (3.5-5.1); SODIUM 143 MMOL/L (136-145)
[2017-12-07 07:28] VITALS: BP 105/84
[2017-12-07] MEDS: Norco 5mg/325mg tab ORAL PRN ×3 (07:51→21:59)
[2017-12-07] MEDS: dilTIAZem HCl 30mg tab ORAL SCH ×4 (07:54→20:48)
[2017-12-07 08:01] LABS: CARBON DIOXIDE 36 MMOL/L (21-32)
[2017-12-07] MEDS: Heparin 5000 units/ml inj SUBQ SCH ×2 (09:39→20:47)
[2017-12-07 12:02] VITALS: BP 132/77
[2017-12-07 16:22] VITALS: BP 134/88
--- NOTE | 2017-12-07 18:24 | Internal Med Progress Note ---
Subjective Date of Service: Dec 07, 2017 Physician Name Manfred Jenkins Attending Physician Bartolome Ye MD Current Medications Medications (Trade) Dose Ordered Sig/Rochelle Route PRN Reason Start Time Stop Time Status Last Admin Dose Admin Acetaminophen/ Hydrocodone Bitart ([place] 5/325) 1 tab Q6H PRN ORAL For Moderate Pain(4-6) 12/02/17 19:00 12/09/17 18:59 12/07/17 14:41 Dextrose (Dextrose 50%) 25 ml Q30M PRN IV Hypoglycemia 12/02/17 19:00 01/01/18 08:28 Dextrose (Dextrose 50%) 50 ml Q30M PRN IV Hypoglycemia 12/02/17 19:00 01/01/18 08:29 Diltiazem HCl (Cardizem) 30 mg QID ORAL 12/02/17 21:00 01/01/18 08:59 12/07/17 17:44 Heparin Sodium (Porcine) (Heparin 5000 units/ml) 5,000 units EVERY 12 HOURS SUBQ 12/02/17 21:00 01/01/18 08:59 12/07/17 09:39 Ibuprofen (Motrin) 600 mg Q6H PRN ORAL For Pain 12/03/17 14:56 01/02/18 14:55 Ipratropium [place] (Atrovent) 500 mcg Q6HRT N 12/06/17 01:00 12/11/17 00:59 12/07/17 13:26 Levalbuterol HCl (Xopenex) 0.625 mg Q6HRT N 12/07/17 19:00 12/12/17 18:59 Lorazepam (Ativan 2mg/ml 1ml) 0.5 mg Q4H PRN IV For Anxiety 12/02/17 19:00 12/09/17 18:59 Morphine Sulfate (Morphine Sulfate) 2 mg Q4H PRN IVP severe pain 7-10 12/02/17 19:00 12/09/17 18:59 12/06/17 16:43 Nitroglycerin (Ntg) 0.4 mg Q5M X 3 DOSES PRN SL Prn Chest Pain 12/02/17 19:00 01/01/18 18:59 Ondansetron HCl (Zofran) 4 mg Q6H PRN IVP Nausea & Vomiting 12/02/17 20:45 11/3/18 08:32 12/07/17 07:54 Promethazine HCl/ Codeine (Phenergan with Codeine) 5 ml Q6H PRN ORAL cough 12/02/17 19:00 01/01/18 18:59 Temazepam (Restoril) 15 mg HSPRN PRN ORAL Insomnia 12/02/17 21:00 12/09/17 20:59 Tiotropium [place] (Spiriva Inhaler) 1 puff DAILY@1100 INH 12/03/17 11:00 01/01/18 10:59 12/07/17 11:06 Allergies: Coded Allergies: No Known Allergies (Unverified , 08/10/17) ROS Limited/Unobtainable: No Constitutional: Reports: no symptoms HEENT: Reports: no symptoms Cardiovascular: Reports: no symptoms Respiratory: Reports: shortness of breath Gastrointestinal/Abdominal: Reports: no symptoms Genitourinary: Reports: no symptoms Neurologic/Psychiatric: Reports: no symptoms Subjective 62 YO F admitted with shortness of breath. Now COPD exacerbation. Cover for Int Med-Dr Ye. Await custodial facility placement Objective Last Vital Signs Date Time Temp Pulse Resp B/P (MAP) Pulse Ox O2 Delivery O2 Flow Rate FiO2 12/07/17 17:44 79 134/88 12/07/17 16:22 98.0 20 99 98.0 12/07/17 13:42 Nasal Cannula 3.0 32 Laboratory Tests Test 12/07/17 05:15 White Blood Count 4.0 K/UL (4.8-10.8) L Red Blood Count 4.32 M/UL (4.20-5.40) Hemoglobin 10.2 G/DL (12.0-16.0) L Hematocrit 34.6 % (37.0-47.0) L Mean Corpuscular Volume 80 FL (80-99) Mean Corpuscular Hemoglobin 23.5 PG (27.0-31.0) L Mean Corpuscular Hemoglobin Concent 29.4 G/DL (32.0-36.0) L Red Cell Distribution Width 18.6 % (11.6-14.8) H Platelet Count 184 K/UL (150-450) Mean Platelet Volume 8.1 FL (6.5-10.1) Neutrophils (%) (Auto) 52.1 % (45.0-75.0) Lymphocytes (%) (Auto) 23.0 % (20.0-45.0) Monocytes (%) (Auto) 19.3 % (1.0-10.0) H Eosinophils (%) (Auto) 3.2 % (0.0-3.0) H Basophils (%) (Auto) 2.4 % (0.0-2.0) H Sodium Level 143 MMOL/L (136-145) Potassium Level 4.8 MMOL/L (3.5-5.1) Chloride Level 102 MMOL/L (98-107) Carbon Dioxide Level 36 MMOL/L (21-32) H Blood Urea Nitrogen 14 mg/dL (7-18) Creatinine 0.5 MG/DL (0.55-1.30) L Estimat Glomerular Filtration Rate > 60 mL/min (>60) Glucose Level 88 MG/DL (74-106) Calcium Level 9.0 MG/DL (8.5-10.1) Intake and Output 12/06/17 12/07/17 19:00 07:00 Intake Total 1600 ml Balance 1600 ml Other 1600 ml # Voids 6 3 Objective PHYSICAL EXAMINATION: GENERAL: The patient is well-developed and well-nourished female, in no apparent distress. HEENT: Eyes, pupils equal and responsive to light and accommodation. Extraocular movements are intact. NECK: Supple without lymphadenopathy. CHEST: Lungs are clear to auscultation bilaterally. A few scattered wheezes in bilateral lung meadows. Otherwise, clear to auscultation bilaterally without wheezes or rales. CARDIOVASCULAR: Regular rate. S1, S2 normal without murmurs, rubs, or gallops. ABDOMEN: Soft, nontender, and nondistended. Positive bowel sounds. No evidence of hepatosplenomegaly. Currently, no rebound or guarding noted. EXTREMITIES: Negative for clubbing, cyanosis, or edema. RECTAL/GENITAL: Refused. NEUROLOGIC: Cranial nerves II through XII are grossly intact without focal deficits. Motor strength is 5/5 bilaterally. Deep tendon reflexes are 2+ plantar. Assessment/Plan Problem List: (1) HTN (hypertension) Assessment & Plan: Continue cardizem (2) COPD exacerbation Assessment & Plan: Continue xopenex and spiriva-see pulmonary note. (3) Chronic respiratory failure Status: stable Assessment/Plan Discharge planning: custodial fac Manfred Jenkins MD Dec 07, 2017 18:24
[2017-12-07 20:00] VITALS: BP 127/80
[2017-12-08] VITALS: BP 119/62
[2017-12-08] MEDS: Ipratropium 0.02% Inh Soln 2.5ml UD HHN SCH ×4 (00:54→19:17)
[2017-12-08] MEDS: Levalbuterol Inh UD 1.25mg/0.5ml HHN SCH ×4 (00:54→19:17)
[2017-12-08 04:00] VITALS: BP 131/88
[2017-12-08 07:50] LABS: BASOPHILS % (AUTO) 3.4 % (0.0-2.0); EOSINOPHILS % (AUTO) 2.1 % (0.0-3.0); HEMATOCRIT 36.2 % (37.0-47.0); HEMOGLOBIN 10.6 G/DL (12.0-16.0); LYMPHOCYTES % (AUTO) 18.3 % (20.0-45.0); MEAN CORPUSCULAR VOLUME 82 FL (80-99); MONOCYTES % (AUTO) 12.1 % (1.0-10.0); NEUTROPHILS % (AUTO) 64.1 % (45.0-75.0); PLATELET COUNT 202 K/UL (150-450); RED BLOOD COUNT 4.42 M/UL (4.20-5.40); RED CELL DISTRIBUTION WIDTH 18.5 % (11.6-14.8); WHITE BLOOD COUNT 4.7 K/UL (4.8-10.8)
[2017-12-08 08:00] VITALS: BP 123/68
[2017-12-08 08:02] LABS: BLOOD UREA NITROGEN 17 mg/dL (7-18); CHLORIDE 102 MMOL/L (98-107); CREATININE 0.7 MG/DL (0.55-1.30); SODIUM 141 MMOL/L (136-145)
[2017-12-08 08:09] LABS: CARBON DIOXIDE 41 MMOL/L (21-32)
[2017-12-08] MEDS: dilTIAZem HCl 30mg tab ORAL SCH ×4 (09:25→23:07)
[2017-12-08] MEDS: Heparin 5000 units/ml inj SUBQ SCH ×2 (09:33→21:22)
[2017-12-08] MEDS: Norco 5mg/325mg tab ORAL PRN ×2 (09:41→19:03)
[2017-12-08 12:00] VITALS: BP 123/79
--- NOTE | 2017-12-08 12:11 | Pulmonology Progress Note ---
Assessment/Plan Problems: (1) Acute on chronic respiratory failure (2) COPD exacerbation (3) Emphysema lung Assessment/Plan no new complains, respiratory treatment check sputum no new events all reviewed Subjective ROS Limited/Unobtainable: No Interval Events: late note for 12/06 Constitutional: Reports: no symptoms HEENT: Repors: no symptoms Respiratory: Reports: no symptoms Allergies: Coded Allergies: No Known Allergies (Unverified , 08/10/17) Objective Last 24 Hour Vital Signs Date Time Temp Pulse Resp B/P (MAP) Pulse Ox O2 Delivery O2 Flow Rate FiO2 12/08/17 10:52 114 24 94 Nasal Cannula 3.0 32 12/08/17 10:52 114 24 94 Nasal Cannula 3.0 32 12/08/17 09:25 102 152/77 12/08/17 09:00 Nasal Cannula 3.0 12/08/17 08:00 97.3 101 13 123/68 (86) 100 97.3 12/08/17 07:28 105 20 99 Nasal Cannula 3.0 32 12/08/17 07:15 101 17 100 Nasal Cannula 3.0 32 12/08/17 07:15 100 Nasal Cannula 3.0 32 12/08/17 07:15 Nasal Cannula 3.0 32 12/08/17 04:00 97.2 98 19 131/88 (102) 100 97.2 12/08/17 01:09 105 20 99 Facial 35 12/08/17 01:05 105 20 99 Nasal Cannula 3.0 32 12/08/17 00:54 102 16 99 Nasal Cannula 3.0 32 12/08/17 00:00 98.6 109 19 119/62 (81) 100 98.6 12/07/17 22:29 99.2 12/07/17 22:00 100 12/07/17 21:59 99.2 12/07/17 20:48 122 127/80 12/07/17 20:14 Nasal Cannula 3.0 12/07/17 20:00 99.2 122 18 127/80 (96) 99 99.2 12/07/17 19:42 101 20 99 Nasal Cannula 3.0 32 12/07/17 19:37 Nasal Cannula 3.0 32 12/07/17 19:36 98 Nasal Cannula 3.0 32 12/07/17 19:31 94 16 98 Nasal Cannula 3.0 32 12/07/17 17:44 79 134/88 12/07/17 16:22 98.0 79 20 134/88 (103) 99 98.0 12/07/17 13:42 79 20 99 Nasal Cannula 3.0 32 12/07/17 13:27 76 16 97 Nasal Cannula 3.0 32 12/07/17 13:20 79 132/77 Intake and Output 12/07/17 12/08/17 19:00 07:00 Intake Total 480 ml Balance 480 ml Intake Oral 480 ml # Voids 2 General Appearance: WD/WN HEENT: normocephalic, anicteric Respiratory/Chest: chest wall non-tender, lungs clear Breasts: no masses Cardiovascular: normal rate Abdomen: no organomegaly Extremities: no cyanosis Skin: no lesions Laboratory Tests 12/08/17 07:40: White Blood Count 4.7L, Red Blood Count 4.42, Hemoglobin 10.6L, Hematocrit 36.2L , Mean Corpuscular Volume 82, Mean Corpuscular Hemoglobin 24.0L, Mean Corpuscular Hemoglobin Concent 29.3L, Red Cell Distribution Width 18.5H, Platelet Count 202, Mean Platelet Volume 7.9, Neutrophils (%) (Auto) 64.1, Lymphocytes (%) (Auto) 18.3L, Monocytes (%) (Auto) 12.1H, Eosinophils (%) (Auto ) 2.1, Basophils (%) (Auto) 3.4H, Sodium Level 141, Potassium Level 5.0, Chloride Level 102, Carbon Dioxide Level 41*H, Blood Urea Nitrogen 17, Creatinine 0.7, Estimat Glomerular Filtration Rate > 60, Glucose Level 94, Calcium Level 9.0 Current Medications Medications (Trade) Dose Ordered Sig/Rochelle Route PRN Reason Start Time Stop Time Status Last Admin Dose Admin Acetaminophen/ Hydrocodone Bitart ([place] 5/325) 1 tab Q6H PRN ORAL For Moderate Pain(4-6) 12/02/17 19:00 12/09/17 18:59 12/08/17 09:41 Dextrose (Dextrose 50%) 25 ml Q30M PRN IV Hypoglycemia 12/02/17 19:00 01/01/18 08:28 Dextrose (Dextrose 50%) 50 ml Q30M PRN IV Hypoglycemia 12/02/17 19:00 01/01/18 08:29 Diltiazem HCl (Cardizem) 30 mg QID ORAL 12/02/17 21:00 01/01/18 08:59 12/08/17 09:25 Heparin Sodium (Porcine) (Heparin 5000 units/ml) 5,000 units EVERY 12 HOURS SUBQ 12/02/17 21:00 01/01/18 08:59 12/08/17 09:33 Ibuprofen (Motrin) 600 mg Q6H PRN ORAL For Pain 12/03/17 14:56 01/02/18 14:55 Ipratropium [place] (Atrovent) 500 mcg Q6HRT N 12/06/17 01:00 12/11/17 00:59 12/08/17 07:15 Levalbuterol HCl (Xopenex) 0.625 mg Q6HRT N 12/07/17 19:00 12/12/17 18:59 12/08/17 07:15 Lorazepam (Ativan 2mg/ml 1ml) 0.5 mg Q4H PRN IV For Anxiety 12/02/17 19:00 12/09/17 18:59 Morphine Sulfate (Morphine Sulfate) 2 mg Q4H PRN IVP severe pain 7-10 12/02/17 19:00 12/09/17 18:59 12/06/17 16:43 Nitroglycerin (Ntg) 0.4 mg Q5M X 3 DOSES PRN SL Prn Chest Pain 12/02/17 19:00 01/01/18 18:59 Ondansetron HCl (Zofran) 4 mg Q6H PRN IVP Nausea & Vomiting 12/02/17 20:45 01/01/18 08:32 12/08/17 09:25 Promethazine HCl/ Codeine (Phenergan with Codeine) 5 ml Q6H PRN ORAL cough 12/02/17 19:00 01/01/18 18:59 Temazepam (Restoril) 15 mg HSPRN PRN ORAL Insomnia 12/02/17 21:00 12/09/17 20:59 Tiotropium [place] (Spiriva Inhaler) 1 puff DAILY@1100 INH 12/03/17 11:00 01/01/18 10:59 12/08/17 10:52 Jakob Hoang MD Dec 08, 2017 12:11
--- NOTE | 2017-12-08 12:11 | Pulmonology Progress Note ---
Assessment/Plan Problems: (1) Acute on chronic respiratory failure (2) COPD exacerbation (3) Emphysema lung Assessment/Plan no new complains, respiratory treatment check sputum no new events all reviewed dc planning in progress Subjective Interval Events: 12/07 late note Constitutional: Reports: no symptoms HEENT: Repors: no symptoms Respiratory: Reports: no symptoms Allergies: Coded Allergies: No Known Allergies (Unverified , 08/10/17) Objective Last 24 Hour Vital Signs Date Time Temp Pulse Resp B/P (MAP) Pulse Ox O2 Delivery O2 Flow Rate FiO2 12/08/17 10:52 114 24 94 Nasal Cannula 3.0 32 12/08/17 10:52 114 24 94 Nasal Cannula 3.0 32 12/08/17 09:25 102 152/77 12/08/17 09:00 Nasal Cannula 3.0 12/08/17 08:00 97.3 101 13 123/68 (86) 100 97.3 12/08/17 07:28 105 20 99 Nasal Cannula 3.0 32 12/08/17 07:15 101 17 100 Nasal Cannula 3.0 32 12/08/17 07:15 100 Nasal Cannula 3.0 32 12/08/17 07:15 Nasal Cannula 3.0 32 12/08/17 04:00 97.2 98 19 131/88 (102) 100 97.2 12/08/17 01:09 105 20 99 Facial 35 12/08/17 01:05 105 20 99 Nasal Cannula 3.0 32 12/08/17 00:54 102 16 99 Nasal Cannula 3.0 32 12/08/17 00:00 98.6 109 19 119/62 (81) 100 98.6 12/07/17 22:29 99.2 12/07/17 22:00 100 12/07/17 21:59 99.2 12/07/17 20:48 122 127/80 12/07/17 20:14 Nasal Cannula 3.0 12/07/17 20:00 99.2 122 18 127/80 (96) 99 99.2 12/07/17 19:42 101 20 99 Nasal Cannula 3.0 32 12/07/17 19:37 Nasal Cannula 3.0 32 12/07/17 19:36 98 Nasal Cannula 3.0 32 12/07/17 19:31 94 16 98 Nasal Cannula 3.0 32 12/07/17 17:44 79 134/88 12/07/17 16:22 98.0 79 20 134/88 (103) 99 98.0 12/07/17 13:42 79 20 99 Nasal Cannula 3.0 32 12/07/17 13:27 76 16 97 Nasal Cannula 3.0 32 12/07/17 13:20 79 132/77 Intake and Output 12/07/17 12/08/17 19:00 07:00 Intake Total 480 ml Balance 480 ml Intake Oral 480 ml # Voids 2 General Appearance: WD/WN HEENT: normocephalic, anicteric Respiratory/Chest: chest wall non-tender, normal breath sounds Breasts: no masses Cardiovascular: normal rate Abdomen: normal bowel sounds, non distended Extremities: no clubbing Skin: no rash Laboratory Tests 12/08/17 07:40: White Blood Count 4.7L, Red Blood Count 4.42, Hemoglobin 10.6L, Hematocrit 36.2L , Mean Corpuscular Volume 82, Mean Corpuscular Hemoglobin 24.0L, Mean Corpuscular Hemoglobin Concent 29.3L, Red Cell Distribution Width 18.5H, Platelet Count 202, Mean Platelet Volume 7.9, Neutrophils (%) (Auto) 64.1, Lymphocytes (%) (Auto) 18.3L, Monocytes (%) (Auto) 12.1H, Eosinophils (%) (Auto ) 2.1, Basophils (%) (Auto) 3.4H, Sodium Level 141, Potassium Level 5.0, Chloride Level 102, Carbon Dioxide Level 41*H, Blood Urea Nitrogen 17, Creatinine 0.7, Estimat Glomerular Filtration Rate > 60, Glucose Level 94, Calcium Level 9.0 Current Medications Medications (Trade) Dose Ordered Sig/Rochelle Route PRN Reason Start Time Stop Time Status Last Admin Dose Admin Acetaminophen/ Hydrocodone Bitart ([place] 5/325) 1 tab Q6H PRN ORAL For Moderate Pain(4-6) 12/02/17 19:00 12/09/17 18:59 12/08/17 09:41 Dextrose (Dextrose 50%) 25 ml Q30M PRN IV Hypoglycemia 12/02/17 19:00 01/01/18 08:28 Dextrose (Dextrose 50%) 50 ml Q30M PRN IV Hypoglycemia 12/02/17 19:00 01/01/18 08:29 Diltiazem HCl (Cardizem) 30 mg QID ORAL 12/02/17 21:00 01/01/18 08:59 12/08/17 09:25 Heparin Sodium (Porcine) (Heparin 5000 units/ml) 5,000 units EVERY 12 HOURS SUBQ 12/02/17 21:00 01/01/18 08:59 12/08/17 09:33 Ibuprofen (Motrin) 600 mg Q6H PRN ORAL For Pain 12/03/17 14:56 01/02/18 14:55 Ipratropium [place] (Atrovent) 500 mcg Q6HRT N 12/06/17 01:00 12/11/17 00:59 12/08/17 07:15 Levalbuterol HCl (Xopenex) 0.625 mg Q6HRT N 12/07/17 19:00 12/12/17 18:59 12/08/17 07:15 Lorazepam (Ativan 2mg/ml 1ml) 0.5 mg Q4H PRN IV For Anxiety 12/02/17 19:00 12/09/17 18:59 Morphine Sulfate (Morphine Sulfate) 2 mg Q4H PRN IVP severe pain 7-10 12/02/17 19:00 12/09/17 18:59 12/06/17 16:43 Nitroglycerin (Ntg) 0.4 mg Q5M X 3 DOSES PRN SL Prn Chest Pain 12/02/17 19:00 01/01/18 18:59 Ondansetron HCl (Zofran) 4 mg Q6H PRN IVP Nausea & Vomiting 12/02/17 20:45 01/01/18 08:32 12/08/17 09:25 Promethazine HCl/ Codeine (Phenergan with Codeine) 5 ml Q6H PRN ORAL cough 12/02/17 19:00 01/01/18 18:59 Temazepam (Restoril) 15 mg HSPRN PRN ORAL Insomnia 12/02/17 21:00 12/09/17 20:59 Tiotropium [place] (Spiriva Inhaler) 1 puff DAILY@1100 INH 12/03/17 11:00 01/01/18 10:59 12/08/17 10:52 Jakob Hoang MD Dec 08, 2017 12:11
--- NOTE | 2017-12-08 12:12 | Pulmonology Progress Note ---
Assessment/Plan Problems: (1) Acute on chronic respiratory failure (2) COPD exacerbation (3) Emphysema lung Assessment/Plan no new complains, respiratory treatment all reviewed no new events all reviewed dc planning in progress Subjective ROS Limited/Unobtainable: No Interval Events: doing better Allergies: Coded Allergies: No Known Allergies (Unverified , 08/10/17) Objective Last 24 Hour Vital Signs Date Time Temp Pulse Resp B/P (MAP) Pulse Ox O2 Delivery O2 Flow Rate FiO2 12/08/17 10:52 114 24 94 Nasal Cannula 3.0 32 12/08/17 10:52 114 24 94 Nasal Cannula 3.0 32 12/08/17 09:25 102 152/77 12/08/17 09:00 Nasal Cannula 3.0 12/08/17 08:00 97.3 101 13 123/68 (86) 100 97.3 12/08/17 07:28 105 20 99 Nasal Cannula 3.0 32 12/08/17 07:15 101 17 100 Nasal Cannula 3.0 32 12/08/17 07:15 100 Nasal Cannula 3.0 32 12/08/17 07:15 Nasal Cannula 3.0 32 12/08/17 04:00 97.2 98 19 131/88 (102) 100 97.2 12/08/17 01:09 105 20 99 Facial 35 12/08/17 01:05 105 20 99 Nasal Cannula 3.0 32 12/08/17 00:54 102 16 99 Nasal Cannula 3.0 32 12/08/17 00:00 98.6 109 19 119/62 (81) 100 98.6 12/07/17 22:29 99.2 12/07/17 22:00 100 12/07/17 21:59 99.2 12/07/17 20:48 122 127/80 12/07/17 20:14 Nasal Cannula 3.0 12/07/17 20:00 99.2 122 18 127/80 (96) 99 99.2 12/07/17 19:42 101 20 99 Nasal Cannula 3.0 32 12/07/17 19:37 Nasal Cannula 3.0 32 12/07/17 19:36 98 Nasal Cannula 3.0 32 12/07/17 19:31 94 16 98 Nasal Cannula 3.0 32 12/07/17 17:44 79 134/88 10/9/18 16:22 98.0 79 20 134/88 (103) 99 98.0 12/07/17 13:42 79 20 99 Nasal Cannula 3.0 32 12/07/17 13:27 76 16 97 Nasal Cannula 3.0 32 12/07/17 13:20 79 132/77 Intake and Output 12/07/17 12/08/17 19:00 07:00 Intake Total 480 ml Balance 480 ml Intake Oral 480 ml # Voids 2 General Appearance: WD/WN HEENT: normocephalic, anicteric Respiratory/Chest: normal breath sounds Breasts: no masses Cardiovascular: normal rate, no gallop/murmur Abdomen: no organomegaly Genitourinary: normal external genitalia Skin: no lesions Laboratory Tests 12/08/17 07:40: White Blood Count 4.7L, Red Blood Count 4.42, Hemoglobin 10.6L, Hematocrit 36.2L , Mean Corpuscular Volume 82, Mean Corpuscular Hemoglobin 24.0L, Mean Corpuscular Hemoglobin Concent 29.3L, Red Cell Distribution Width 18.5H, Platelet Count 202, Mean Platelet Volume 7.9, Neutrophils (%) (Auto) 64.1, Lymphocytes (%) (Auto) 18.3L, Monocytes (%) (Auto) 12.1H, Eosinophils (%) (Auto ) 2.1, Basophils (%) (Auto) 3.4H, Sodium Level 141, Potassium Level 5.0, Chloride Level 102, Carbon Dioxide Level 41*H, Blood Urea Nitrogen 17, Creatinine 0.7, Estimat Glomerular Filtration Rate > 60, Glucose Level 94, Calcium Level 9.0 Current Medications Medications (Trade) Dose Ordered Sig/Rochelle Route PRN Reason Start Time Stop Time Status Last Admin Dose Admin Acetaminophen/ Hydrocodone Bitart ([place] 5/325) 1 tab Q6H PRN ORAL For Moderate Pain(4-6) 12/02/17 19:00 12/09/17 18:59 12/08/17 09:41 Dextrose (Dextrose 50%) 25 ml Q30M PRN IV Hypoglycemia 12/02/17 19:00 01/01/18 08:28 Dextrose (Dextrose 50%) 50 ml Q30M PRN IV Hypoglycemia 12/02/17 19:00 01/01/18 08:29 Diltiazem HCl (Cardizem) 30 mg QID ORAL 12/02/17 21:00 01/01/18 08:59 12/08/17 09:25 Heparin Sodium (Porcine) (Heparin 5000 units/ml) 5,000 units EVERY 12 HOURS SUBQ 12/02/17 21:00 01/01/18 08:59 12/08/17 09:33 Ibuprofen (Motrin) 600 mg Q6H PRN ORAL For Pain 12/03/17 14:56 01/02/18 14:55 Ipratropium [place] (Atrovent) 500 mcg Q6HRT N 12/06/17 01:00 12/11/17 00:59 12/08/17 07:15 Levalbuterol HCl (Xopenex) 0.625 mg Q6HRT N 12/07/17 19:00 12/12/17 18:59 12/08/17 07:15 Lorazepam (Ativan 2mg/ml 1ml) 0.5 mg Q4H PRN IV For Anxiety 12/02/17 19:00 12/09/17 18:59 Morphine Sulfate (Morphine Sulfate) 2 mg Q4H PRN IVP severe pain 7-10 12/02/17 19:00 12/09/17 18:59 12/06/17 16:43 Nitroglycerin (Ntg) 0.4 mg Q5M X 3 DOSES PRN SL Prn Chest Pain 12/02/17 19:00 01/01/18 18:59 Ondansetron HCl (Zofran) 4 mg Q6H PRN IVP Nausea & Vomiting 12/02/17 20:45 01/01/18 08:32 12/08/17 09:25 Promethazine HCl/ Codeine (Phenergan with Codeine) 5 ml Q6H PRN ORAL cough 12/02/17 19:00 01/01/18 18:59 Temazepam (Restoril) 15 mg HSPRN PRN ORAL Insomnia 12/02/17 21:00 12/09/17 20:59 Tiotropium [place] (Spiriva Inhaler) 1 puff DAILY@1100 INH 12/03/17 11:00 01/01/18 10:59 12/08/17 10:52 Jakob Hoang MD Dec 08, 2017 12:12
--- NOTE | 2017-12-08 12:33 | Internal Med Progress Note ---
Subjective Date of Service: Dec 08, 2017 Physician Name Manfred Jenkins Attending Physician Bartolome Ye MD Current Medications Medications (Trade) Dose Ordered Sig/Rochelle Route PRN Reason Start Time Stop Time Status Last Admin Dose Admin Acetaminophen/ Hydrocodone Bitart ([place] 5/325) 1 tab Q6H PRN ORAL For Moderate Pain(4-6) 12/02/17 19:00 12/09/17 18:59 12/08/17 09:41 Dextrose (Dextrose 50%) 25 ml Q30M PRN IV Hypoglycemia 12/02/17 19:00 01/01/18 08:28 Dextrose (Dextrose 50%) 50 ml Q30M PRN IV Hypoglycemia 12/02/17 19:00 01/01/18 08:29 Diltiazem HCl (Cardizem) 30 mg QID ORAL 12/02/17 21:00 01/01/18 08:59 12/08/17 09:25 Heparin Sodium (Porcine) (Heparin 5000 units/ml) 5,000 units EVERY 12 HOURS SUBQ 12/02/17 21:00 01/01/18 08:59 12/08/17 09:33 Ibuprofen (Motrin) 600 mg Q6H PRN ORAL For Pain 12/03/17 14:56 01/02/18 14:55 Ipratropium [place] (Atrovent) 500 mcg Q6HRT N 12/06/17 01:00 12/11/17 00:59 12/08/17 07:15 Levalbuterol HCl (Xopenex) 0.625 mg Q6HRT N 12/07/17 19:00 12/12/17 18:59 12/08/17 07:15 Lorazepam (Ativan 2mg/ml 1ml) 0.5 mg Q4H PRN IV For Anxiety 12/02/17 19:00 12/09/17 18:59 Morphine Sulfate (Morphine Sulfate) 2 mg Q4H PRN IVP severe pain 7-10 12/02/17 19:00 12/09/17 18:59 12/06/17 16:43 Nitroglycerin (Ntg) 0.4 mg Q5M X 3 DOSES PRN SL Prn Chest Pain 12/02/17 19:00 01/01/18 18:59 Ondansetron HCl (Zofran) 4 mg Q6H PRN IVP Nausea & Vomiting 10/4/18 20:45 01/01/18 08:32 12/08/17 09:25 Promethazine HCl/ Codeine (Phenergan with Codeine) 5 ml Q6H PRN ORAL cough 12/02/17 19:00 01/01/18 18:59 Temazepam (Restoril) 15 mg HSPRN PRN ORAL Insomnia 12/02/17 21:00 12/09/17 20:59 Tiotropium [place] (Spiriva Inhaler) 1 puff DAILY@1100 INH 12/03/17 11:00 01/01/18 10:59 12/08/17 10:52 Allergies: Coded Allergies: No Known Allergies (Unverified , 08/10/17) ROS Limited/Unobtainable: No Constitutional: Reports: no symptoms HEENT: Reports: no symptoms Cardiovascular: Reports: no symptoms Respiratory: Reports: shortness of breath Gastrointestinal/Abdominal: Reports: no symptoms Genitourinary: Reports: no symptoms Neurologic/Psychiatric: Reports: no symptoms Subjective 62 YO F admitted with shortness of breath. Now COPD exacerbation. Cover for Int Med-Dr Ye. Await long term facility placement Objective Last Vital Signs Date Time Temp Pulse Resp B/P (MAP) Pulse Ox O2 Delivery O2 Flow Rate FiO2 12/08/17 10:52 114 24 94 Nasal Cannula 3.0 32 12/08/17 09:25 152/77 12/08/17 08:00 97.3 97.3 Laboratory Tests Test 12/08/17 07:40 White Blood Count 4.7 K/UL (4.8-10.8) L Red Blood Count 4.42 M/UL (4.20-5.40) Hemoglobin 10.6 G/DL (12.0-16.0) L Hematocrit 36.2 % (37.0-47.0) L Mean Corpuscular Volume 82 FL (80-99) Mean Corpuscular Hemoglobin 24.0 PG (27.0-31.0) L Mean Corpuscular Hemoglobin Concent 29.3 G/DL (32.0-36.0) L Red Cell Distribution Width 18.5 % (11.6-14.8) H Platelet Count 202 K/UL (150-450) Mean Platelet Volume 7.9 FL (6.5-10.1) Neutrophils (%) (Auto) 64.1 % (45.0-75.0) Lymphocytes (%) (Auto) 18.3 % (20.0-45.0) L Monocytes (%) (Auto) 12.1 % (1.0-10.0) H Eosinophils (%) (Auto) 2.1 % (0.0-3.0) Basophils (%) (Auto) 3.4 % (0.0-2.0) H Sodium Level 141 MMOL/L (136-145) Potassium Level 5.0 MMOL/L (3.5-5.1) Chloride Level 102 MMOL/L (98-107) Carbon Dioxide Level 41 MMOL/L (21-32) *H Blood Urea Nitrogen 17 mg/dL (7-18) Creatinine 0.7 MG/DL (0.55-1.30) Estimat Glomerular Filtration Rate > 60 mL/min (>60) Glucose Level 94 MG/DL (74-106) Calcium Level 9.0 MG/DL (8.5-10.1) Intake and Output 12/07/17 12/08/17 19:00 07:00 Intake Total 480 ml Balance 480 ml Intake Oral 480 ml # Voids 2 Objective PHYSICAL EXAMINATION: GENERAL: The patient is well-developed and well-nourished female, in no apparent distress. HEENT: Eyes, pupils equal and responsive to light and accommodation. Extraocular movements are intact. NECK: Supple without lymphadenopathy. CHEST: Lungs are clear to auscultation bilaterally. A few scattered wheezes in bilateral lung meadows. Otherwise, clear to auscultation bilaterally without wheezes or rales. CARDIOVASCULAR: Regular rate. S1, S2 normal without murmurs, rubs, or gallops. ABDOMEN: Soft, nontender, and nondistended. Positive bowel sounds. No evidence of hepatosplenomegaly. Currently, no rebound or guarding noted. EXTREMITIES: Negative for clubbing, cyanosis, or edema. RECTAL/GENITAL: Refused. NEUROLOGIC: Cranial nerves II through XII are grossly intact without focal deficits. Motor strength is 5/5 bilaterally. Deep tendon reflexes are 2+ plantar. Assessment/Plan Problem List: (1) HTN (hypertension) Assessment & Plan: Continue cardizem (2) COPD exacerbation Assessment & Plan: Continue xopenex and spiriva-see pulmonary note. (3) Chronic respiratory failure Assessment/Plan Discharge planning: long term fac Manfred Jenkins MD Dec 08, 2017 12:33
[2017-12-08 20:00] VITALS: BP 133/88
[2017-12-09] VITALS: BP 136/83
[2017-12-09] MEDS: Ipratropium 0.02% Inh Soln 2.5ml UD HHN SCH ×4 (01:00→20:31)
[2017-12-09] MEDS: Levalbuterol Inh UD 1.25mg/0.5ml HHN SCH ×4 (01:00→20:30)
[2017-12-09] MEDS: Norco 5mg/325mg tab ORAL PRN ×3 (01:06→21:33)
[2017-12-09 06:40] LABS: BASOPHILS % (AUTO) 2.6 % (0.0-2.0); EOSINOPHILS % (AUTO) 3.4 % (0.0-3.0); LYMPHOCYTES % (AUTO) 20.3 % (20.0-45.0); MEAN CORPUSCULAR VOLUME 80 FL (80-99); MONOCYTES % (AUTO) 17.6 % (1.0-10.0); NEUTROPHILS % (AUTO) 56.1 % (45.0-75.0); PLATELET COUNT 196 K/UL (150-450); RED BLOOD COUNT 4.78 M/UL (4.20-5.40); RED CELL DISTRIBUTION WIDTH 18.6 % (11.6-14.8); WHITE BLOOD COUNT 4.7 K/UL (4.8-10.8)
[2017-12-09 06:59] LABS: ANION GAP 2 mmol/L (5-15); BLOOD UREA NITROGEN 12 mg/dL (7-18); CALCIUM 9.4 MG/DL (8.5-10.1); CARBON DIOXIDE 38 MMOL/L (21-32); CHLORIDE 101 MMOL/L (98-107); CREATININE 0.6 MG/DL (0.55-1.30); POTASSIUM 5.1 MMOL/L (3.5-5.1); SODIUM 141 MMOL/L (136-145)
[2017-12-09 08:00] VITALS: BP 136/86
[2017-12-09] MEDS: dilTIAZem HCl 30mg tab ORAL SCH ×4 (09:22→21:32)
[2017-12-09] MEDS: Heparin 5000 units/ml inj SUBQ SCH ×3 (09:23→21:33)
[2017-12-09] MEDS: Morphine Sulfate 2mg/ml Inj IVP PRN (09:23)
[2017-12-09 12:00] VITALS: BP 115/85
--- NOTE | 2017-12-09 13:39 | Pulmonology Progress Note ---
Assessment/Plan Problems: (1) Acute on chronic respiratory failure (2) COPD exacerbation (3) Emphysema lung Assessment/Plan c/o acid pain in stomach, will order Carafate respiratory treatment all reviewed no new events all reviewed dc planning in progress Subjective ROS Limited/Unobtainable: No Constitutional: Reports: no symptoms HEENT: Repors: no symptoms Allergies: Coded Allergies: No Known Allergies (Unverified , 08/10/17) Objective Last 24 Hour Vital Signs Date Time Temp Pulse Resp B/P (MAP) Pulse Ox O2 Delivery O2 Flow Rate FiO2 12/09/17 13:25 99 20 100 Bi-pap 40 12/09/17 13:11 101 22 98 Nasal Cannula 3.0 32 12/09/17 13:04 101 115/85 12/09/17 12:00 97.7 101 18 115/85 (95) 97 97.7 12/09/17 09:22 113 136/86 12/09/17 09:00 Nasal Cannula 2.0 12/09/17 08:00 97.9 113 18 136/86 (103) 97 97.9 12/09/17 07:19 93 20 100 Nasal Cannula 3.0 32 12/09/17 07:10 Nasal Cannula 3.0 32 12/09/17 07:10 97 Nasal Cannula 3.0 32 12/09/17 07:09 91 20 97 Nasal Cannula 3.0 32 12/09/17 04:00 18 12/09/17 01:32 Nasal Cannula 12/09/17 01:32 Nasal Cannula 12/09/17 00:00 98.1 103 19 136/83 (100) 98 98.1 12/08/17 23:07 109 133/88 12/08/17 21:00 Nasal Cannula 2.0 12/08/17 20:00 97.8 109 18 133/88 (103) 98 97.8 12/08/17 19:35 99 Nasal Cannula 3.0 32 12/08/17 19:35 Nasal Cannula 3.0 32 12/08/17 19:32 108 18 99 Nasal Cannula 3.0 32 12/08/17 19:18 111 22 99 Nasal Cannula 3.0 32 12/08/17 19:04 116 123/79 12/08/17 14:41 116 123/79 Intake and Output 12/08/17 12/09/17 19:00 07:00 Intake Total 240 ml Balance 240 ml Intake Oral 240 ml # Voids 2 2 # Bowel Movements 1 General Appearance: WD/WN HEENT: normocephalic, atraumatic Respiratory/Chest: chest wall non-tender, lungs clear, chest wall tender Breasts: no masses Cardiovascular: normal rate Abdomen: normal bowel sounds, soft, non tender Genitourinary: normal external genitalia Extremities: no clubbing Skin: no rash Laboratory Tests 12/09/17 05:25: White Blood Count 4.7L, Red Blood Count 4.78, Hemoglobin 11.0L, Hematocrit 38.0 , Mean Corpuscular Volume 80, Mean Corpuscular Hemoglobin 23.0L, Mean Corpuscular Hemoglobin Concent 28.8L, Red Cell Distribution Width 18.6H, Platelet Count 196, Mean Platelet Volume 7.0, Neutrophils (%) (Auto) 56.1, Lymphocytes (%) (Auto) 20.3, Monocytes (%) (Auto) 17.6H, Eosinophils (%) (Auto) 3.4H, Basophils (%) (Auto) 2.6H, Sodium Level 141, Potassium Level 5.1, Chloride Level 101, Carbon Dioxide Level 38H, Anion Gap 2L, Blood Urea Nitrogen 12, Creatinine 0.6, Estimat Glomerular Filtration Rate > 60, Glucose Level 83, Calcium Level 9.4 Current Medications Medications (Trade) Dose Ordered Sig/Rochelle Route PRN Reason Start Time Stop Time Status Last Admin Dose Admin Acetaminophen/ Hydrocodone Bitart ([place] 5/325) 1 tab Q6H PRN ORAL For Moderate Pain(4-6) 12/02/17 19:00 12/09/17 18:59 12/09/17 01:06 Al Hydroxide/Mg Hydroxide (Mylanta) 30 ml Q6H PRN ORAL Nausea & Vomiting 12/08/17 21:43 01/07/18 21:42 12/08/17 23:19 Dextrose (Dextrose 50%) 25 ml Q30M PRN IV Hypoglycemia 12/02/17 19:00 01/01/18 08:28 Dextrose (Dextrose 50%) 50 ml Q30M PRN IV Hypoglycemia 12/02/17 19:00 01/01/18 08:29 Diltiazem HCl (Cardizem) 30 mg QID ORAL 12/02/17 21:00 01/01/18 08:59 12/09/17 13:04 Heparin Sodium (Porcine) (Heparin 5000 units/ml) 5,000 units EVERY 12 HOURS SUBQ 12/02/17 21:00 01/01/18 08:59 12/08/17 21:22 Ibuprofen (Motrin) 600 mg Q6H PRN ORAL For Pain 12/03/17 14:56 01/02/18 14:55 Ipratropium [place] (Atrovent) 500 mcg Q6HRT N 12/06/17 01:00 12/11/17 00:59 12/09/17 13:10 Levalbuterol HCl (Xopenex) 0.625 mg Q6HRT N 12/07/17 19:00 12/12/17 18:59 12/09/17 13:10 Lorazepam (Ativan 2mg/ml 1ml) 0.5 mg Q4H PRN IV For Anxiety 12/02/17 19:00 12/09/17 18:59 Nitroglycerin (Ntg) 0.4 mg Q5M X 3 DOSES PRN SL Prn Chest Pain 12/02/17 19:00 01/01/18 18:59 Ondansetron HCl (Zofran) 4 mg Q6H PRN IVP Nausea & Vomiting 12/02/17 20:45 01/01/18 08:32 12/09/17 13:05 Promethazine HCl/ Codeine (Phenergan with Codeine) 5 ml Q6H PRN ORAL cough 12/02/17 19:00 01/01/18 18:59 Temazepam (Restoril) 15 mg HSPRN PRN ORAL Insomnia 12/02/17 21:00 12/09/17 20:59 Tiotropium [place] (Spiriva Inhaler) 1 puff DAILY@1100 INH 12/03/17 11:00 01/01/18 10:59 12/09/17 11:00 Jakob Hoang MD Dec 09, 2017 13:39
[2017-12-09] MEDS ORDERED: Sucralfate 1gm tab ORAL SCH (13:45)
[2017-12-09 16:00] VITALS: BP 114/71
[2017-12-09] MEDS: Sucralfate 1gm tab ORAL SCH ×2 (18:00→21:32)
--- NOTE | 2017-12-09 18:22 | Internal Med Progress Note ---
Subjective Date of Service: Dec 09, 2017 Physician Name Manfred Jenkins Attending Physician Bartolome Ye MD Current Medications Medications (Trade) Dose Ordered Sig/Rochelle Route PRN Reason Start Time Stop Time Status Last Admin Dose Admin Acetaminophen/ Hydrocodone Bitart ([place] 5/325) 1 tab Q6H PRN ORAL For Moderate Pain(4-6) 12/02/17 19:00 12/09/17 18:59 12/09/17 14:24 Al Hydroxide/Mg Hydroxide (Mylanta) 30 ml Q6H PRN ORAL Nausea & Vomiting 12/08/17 21:43 01/07/18 21:42 12/09/17 14:24 Dextrose (Dextrose 50%) 25 ml Q30M PRN IV Hypoglycemia 12/02/17 19:00 01/01/18 08:28 Dextrose (Dextrose 50%) 50 ml Q30M PRN IV Hypoglycemia 12/02/17 19:00 01/01/18 08:29 Diltiazem HCl (Cardizem) 30 mg QID ORAL 12/02/17 21:00 01/01/18 08:59 12/09/17 18:13 Heparin Sodium (Porcine) (Heparin 5000 units/ml) 5,000 units EVERY 12 HOURS SUBQ 12/02/17 21:00 01/01/18 08:59 12/08/17 21:22 Ibuprofen (Motrin) 600 mg Q6H PRN ORAL For Pain 12/03/17 14:56 01/02/18 14:55 Ipratropium [place] (Atrovent) 500 mcg Q6HRT N 12/06/17 01:00 12/11/17 00:59 12/09/17 13:10 Levalbuterol HCl (Xopenex) 0.625 mg Q6HRT HHN 12/07/17 19:00 12/12/17 18:59 12/09/17 13:10 Lorazepam (Ativan 2mg/ml 1ml) 0.5 mg Q4H PRN IV For Anxiety 12/02/17 19:00 12/09/17 18:59 Nitroglycerin (Ntg) 0.4 mg Q5M X 3 DOSES PRN SL Prn Chest Pain 12/02/17 19:00 01/01/18 18:59 Ondansetron HCl (Zofran) 4 mg Q6H PRN IVP Nausea & Vomiting 12/02/17 20:45 01/01/18 08:32 12/09/17 13:05 Promethazine HCl/ Codeine (Phenergan with Codeine) 5 ml Q6H PRN ORAL cough 12/02/17 19:00 01/01/18 18:59 Sucralfate (Carafate) 1 gm FOUR TIMES A DAY ORAL 12/09/17 18:00 01/08/18 17:59 Temazepam (Restoril) 15 mg HSPRN PRN ORAL Insomnia 12/02/17 21:00 12/09/17 20:59 Tiotropium [place] (Spiriva Inhaler) 1 puff DAILY@1100 INH 12/03/17 11:00 01/01/18 10:59 12/09/17 11:00 Allergies: Coded Allergies: No Known Allergies (Unverified , 08/10/17) ROS Limited/Unobtainable: No Constitutional: Reports: no symptoms HEENT: Reports: no symptoms Cardiovascular: Reports: no symptoms Respiratory: Reports: no symptoms Gastrointestinal/Abdominal: Reports: no symptoms Genitourinary: Reports: no symptoms Neurologic/Psychiatric: Reports: no symptoms Subjective 62 YO F admitted with shortness of breath. Now COPD exacerbation. Cover for [facility] Med-Dr Ye. Patient [facility] facility placement Objective Last Vital Signs Date Time Temp Pulse Resp B/P (MAP) Pulse Ox O2 Delivery O2 Flow Rate FiO2 12/09/17 18:13 101 133/83 12/09/17 16:00 98.6 18 99 98.6 12/09/17 13:25 Bi-pap 40 12/09/17 13:11 3.0 Laboratory Tests Test 12/09/17 05:25 White Blood Count 4.7 K/UL (4.8-10.8) L Red Blood Count 4.78 M/UL (4.20-5.40) Hemoglobin 11.0 G/DL (12.0-16.0) L Hematocrit 38.0 % (37.0-47.0) Mean Corpuscular Volume 80 FL (80-99) Mean Corpuscular Hemoglobin 23.0 PG (27.0-31.0) L Mean Corpuscular Hemoglobin Concent 28.8 G/DL (32.0-36.0) L Red Cell Distribution Width 18.6 % (11.6-14.8) H Platelet Count 196 K/UL (150-450) Mean Platelet Volume 7.0 FL (6.5-10.1) Neutrophils (%) (Auto) 56.1 % (45.0-75.0) Lymphocytes (%) (Auto) 20.3 % (20.0-45.0) Monocytes (%) (Auto) 17.6 % (1.0-10.0) H Eosinophils (%) (Auto) 3.4 % (0.0-3.0) H Basophils (%) (Auto) 2.6 % (0.0-2.0) H Sodium Level 141 MMOL/L (136-145) Potassium Level 5.1 MMOL/L (3.5-5.1) Chloride Level 101 MMOL/L (98-107) Carbon Dioxide Level 38 MMOL/L (21-32) H Anion Gap 2 mmol/L (5-15) L Blood Urea Nitrogen 12 mg/dL (7-18) Creatinine 0.6 MG/DL (0.55-1.30) Estimat Glomerular Filtration Rate > 60 mL/min (>60) Glucose Level 83 MG/DL (74-106) Calcium Level 9.4 MG/DL (8.5-10.1) Intake and Output 12/08/17 12/09/17 19:00 07:00 Intake Total 240 ml Balance 240 ml Intake Oral 240 ml # Voids 2 2 # Bowel Movements 1 Objective PHYSICAL EXAMINATION: GENERAL: The patient is well-developed and well-nourished female, in no apparent distress. HEENT: Eyes, pupils equal and responsive to light and accommodation. Extraocular movements are intact. NECK: Supple without lymphadenopathy. CHEST: Lungs are clear to auscultation bilaterally. A few scattered wheezes in bilateral lung meadows. Otherwise, clear to auscultation bilaterally without wheezes or rales. CARDIOVASCULAR: Regular rate. S1, S2 normal without murmurs, rubs, or gallops. ABDOMEN: Soft, nontender, and nondistended. Positive bowel sounds. No evidence of hepatosplenomegaly. Currently, no rebound or guarding noted. EXTREMITIES: Negative for clubbing, cyanosis, or edema. RECTAL/GENITAL: Refused. NEUROLOGIC: Cranial nerves II through XII are grossly intact without focal deficits. Motor strength is 5/5 bilaterally. Deep tendon reflexes are 2+ plantar. Assessment/Plan Problem List: (1) HTN (hypertension) Assessment & Plan: Continue cardizem (2) COPD exacerbation Assessment & Plan: Continue xopenex and spiriva-see pulmonary note. (3) Chronic respiratory failure Assessment/Plan Discharge planning: patient refusing [facility]iary fac placement-see soc work note. Manfred Jenkins MD Dec 09, 2017 18:22
[2017-12-09 20:00] VITALS: BP 121/76
[2017-12-09] MEDS ORDERED: Ipratropium 0.02% Inh Soln 2.5ml UD ONE (20:25)
[2017-12-09] MEDS ORDERED: Levalbuterol Inh UD 1.25mg/0.5ml ONE (20:25)
[2017-12-09] MEDS ORDERED: Norco 5mg/325mg tab ORAL PRN (20:45)
[2017-12-10] VITALS: BP 117/72
[2017-12-10] MEDS: Ipratropium 0.02% Inh Soln 2.5ml UD HHN SCH ×4 (01:29→18:47)
[2017-12-10] MEDS: Levalbuterol Inh UD 1.25mg/0.5ml HHN SCH ×4 (01:29→18:47)
[2017-12-10] MEDS: Norco 5mg/325mg tab ORAL PRN ×4 (03:35→23:10)
[2017-12-10 04:00] VITALS: BP 112/81
[2017-12-10 08:00] VITALS: BP 114/81
[2017-12-10] MEDS: dilTIAZem HCl 30mg tab ORAL SCH ×4 (08:37→20:11)
[2017-12-10] MEDS: Sucralfate 1gm tab ORAL SCH ×4 (08:37→20:11)
[2017-12-10] MEDS: Heparin 5000 units/ml inj SUBQ SCH ×2 (08:41→20:21)
[2017-12-10 12:00] VITALS: BP 101/81
[2017-12-10 16:00] VITALS: BP 128/81
--- NOTE | 2017-12-10 19:10 | Internal Med Progress Note ---
Subjective Date of Service: Dec 10, 2017 Physician Name Manfred Jenkins Attending Physician Bartolome Ye MD Current Medications Medications (Trade) Dose Ordered Sig/Rochelle Route PRN Reason Start Time Stop Time Status Last Admin Dose Admin Acetaminophen/ Hydrocodone Bitart ([place] 5/325) 1 tab Q6H PRN ORAL Moderate Pain (Pain Scale 4-6) 12/09/17 20:48 12/16/17 20:47 12/10/17 17:02 Al Hydroxide/Mg Hydroxide (Mylanta) 30 ml Q6H PRN ORAL Nausea & Vomiting 12/08/17 21:43 01/07/18 21:42 12/09/17 14:24 Dextrose (Dextrose 50%) 25 ml Q30M PRN IV Hypoglycemia 12/02/17 19:00 01/01/18 08:28 Dextrose (Dextrose 50%) 50 ml Q30M PRN IV Hypoglycemia 12/02/17 19:00 01/01/18 08:29 Diltiazem HCl (Cardizem) 30 mg QID ORAL 12/02/17 21:00 01/01/18 08:59 12/10/17 17:02 Heparin Sodium (Porcine) (Heparin 5000 units/ml) 5,000 units EVERY 12 HOURS SUBQ 12/02/17 21:00 01/01/18 08:59 12/10/17 08:41 Ibuprofen (Motrin) 600 mg Q6H PRN ORAL For Pain 12/03/17 14:56 01/02/18 14:55 Ipratropium [place] (Atrovent) 500 mcg Q6HRT HHN 12/06/17 01:00 12/11/17 00:59 12/10/17 18:47 Levalbuterol HCl (Xopenex) 0.625 mg Q6HRT HHN 12/07/17 19:00 12/12/17 18:59 12/10/17 18:47 Nitroglycerin (Ntg) 0.4 mg Q5M X 3 DOSES PRN SL Prn Chest Pain 12/02/17 19:00 01/01/18 18:59 Ondansetron HCl (Zofran) 4 mg Q6H PRN IVP Nausea & Vomiting 12/02/17 20:45 01/01/18 08:32 12/10/17 09:29 Promethazine HCl/ Codeine (Phenergan with Codeine) 5 ml Q6H PRN ORAL cough 12/02/17 19:00 01/01/18 18:59 Sucralfate (Carafate) 1 gm FOUR TIMES A DAY ORAL 12/09/17 18:00 01/08/18 17:59 12/10/17 17:02 Tiotropium [place] (Spiriva Inhaler) 1 puff DAILY@1100 INH 12/03/17 11:00 01/01/18 10:59 12/10/17 11:49 Allergies: Coded Allergies: No Known Allergies (Unverified , 08/10/17) ROS Limited/Unobtainable: No Constitutional: Reports: no symptoms HEENT: Reports: no symptoms Cardiovascular: Reports: no symptoms Respiratory: Reports: no symptoms Gastrointestinal/Abdominal: Reports: no symptoms Genitourinary: Reports: no symptoms Neurologic/Psychiatric: Reports: no symptoms Subjective 62 YO F admitted with shortness of breath. Now COPD exacerbation. Cover for [facility]-Dr Ye. Patient refused detention facility placement Objective Last Vital Signs Date Time Temp Pulse Resp B/P (MAP) Pulse Ox O2 Delivery O2 Flow Rate FiO2 12/10/17 18:47 111 20 100 Nasal Cannula 4.0 36 12/10/17 17:02 128/81 12/10/17 16:00 97.7 97.7 Intake and Output 12/09/17 12/10/17 19:00 07:00 Intake Total 500 ml 720 ml Balance 500 ml 720 ml Intake Oral 500 ml 720 ml # Voids 5 1 Objective PHYSICAL EXAMINATION: GENERAL: The patient is well-developed and well-nourished female, in no apparent distress. HEENT: Eyes, pupils equal and responsive to light and accommodation. Extraocular movements are intact. NECK: Supple without lymphadenopathy. CHEST: Lungs are clear to auscultation bilaterally. A few scattered wheezes in bilateral lung meadows. Otherwise, clear to auscultation bilaterally without wheezes or rales. CARDIOVASCULAR: Regular rate. S1, S2 normal without murmurs, rubs, or gallops. ABDOMEN: Soft, nontender, and nondistended. Positive bowel sounds. No evidence of hepatosplenomegaly. Currently, no rebound or guarding noted. EXTREMITIES: Negative for clubbing, cyanosis, or edema. RECTAL/GENITAL: Refused. NEUROLOGIC: Cranial nerves II through XII are grossly intact without focal deficits. Motor strength is 5/5 bilaterally. Deep tendon reflexes are 2+ plantar. Assessment/Plan Problem List: (1) HTN (hypertension) Assessment & Plan: Continue cardizem (2) COPD exacerbation Assessment & Plan: Continue xopenex and spiriva-see pulmonary note. Await home oxygen to be delivered (3) Chronic respiratory failure Status: stable Assessment/Plan Discharge planning: patient refusing detention fac placement-see soc work note. Manfred Jenkins MD Dec 10, 2017 19:10
[2017-12-10 20:00] VITALS: BP 127/81
[2017-12-11] VITALS: BP 143/93
[2017-12-11] MEDS: Levalbuterol Inh UD 1.25mg/0.5ml HHN SCH ×4 (01:24→19:18)
[2017-12-11 04:00] VITALS: BP 132/83
[2017-12-11] MEDS: Norco 5mg/325mg tab ORAL PRN ×4 (05:24→23:59)
[2017-12-11 08:00] VITALS: BP 130/80
[2017-12-11] MEDS: Sucralfate 1gm tab ORAL SCH ×4 (09:05→20:30)
[2017-12-11] MEDS: dilTIAZem HCl 30mg tab ORAL SCH ×4 (09:06→20:30)
[2017-12-11] MEDS: Heparin 5000 units/ml inj SUBQ SCH ×2 (09:07→20:32)
[2017-12-11 12:00] VITALS: BP 131/71
[2017-12-11] MEDS: Bisacodyl EC 5mg tab ORAL PRN (12:00)
--- NOTE | 2017-12-11 14:33 | Internal Med Progress Note ---
Subjective Date of Service: Dec 11, 2017 Physician Name Manfred Jenkins Attending Physician Bartolome Ye MD Current Medications Medications (Trade) Dose Ordered Sig/Rochelle Route PRN Reason Start Time Stop Time Status Last Admin Dose Admin Acetaminophen/ Hydrocodone Bitart ([place] 5/325) 1 tab Q6H PRN ORAL Moderate Pain (Pain Scale 4-6) 12/09/17 20:48 12/16/17 20:47 12/11/17 11:36 Al Hydroxide/Mg Hydroxide (Mylanta) 30 ml Q6H PRN ORAL Nausea & Vomiting 12/08/17 21:43 01/07/18 21:42 12/11/17 01:12 Bisacodyl (Dulcolax) 5 mg DAILYPRN PRN ORAL Constipation 12/11/17 11:48 01/10/18 11:47 12/11/17 12:00 Dextrose (Dextrose 50%) 25 ml Q30M PRN IV Hypoglycemia 12/02/17 19:00 01/01/18 08:28 Dextrose (Dextrose 50%) 50 ml Q30M PRN IV Hypoglycemia 12/02/17 19:00 01/01/18 08:29 Diltiazem HCl (Cardizem) 30 mg QID ORAL 12/02/17 21:00 01/01/18 08:59 12/11/17 12:00 Heparin Sodium (Porcine) (Heparin 5000 units/ml) 5,000 units EVERY 12 HOURS SUBQ 12/02/17 21:00 01/01/18 08:59 12/11/17 09:07 Ibuprofen (Motrin) 600 mg Q6H PRN ORAL For Pain 12/03/17 14:56 01/02/18 14:55 Levalbuterol HCl (Xopenex) 0.625 mg Q6HRT HHN 12/07/17 19:00 12/12/17 18:59 12/11/17 13:05 Magnesium Hydroxide (Mom) 30 ml DAILYPRN PRN ORAL Constipation 12/11/17 11:48 01/10/18 11:47 Nitroglycerin (Ntg) 0.4 mg Q5M X 3 DOSES PRN SL Prn Chest Pain 12/02/17 19:00 01/01/18 18:59 Ondansetron HCl (Zofran) 4 mg Q6H PRN IVP Nausea & Vomiting 12/02/17 20:45 01/01/18 08:32 12/11/17 09:10 Promethazine HCl/ Codeine (Phenergan with Codeine) 5 ml Q6H PRN ORAL cough 12/02/17 19:00 01/01/18 18:59 Sucralfate (Carafate) 1 gm FOUR TIMES A DAY ORAL 12/09/17 18:00 01/08/18 17:59 12/11/17 12:00 Tiotropium [place] (Spiriva Inhaler) 1 puff DAILY@1100 INH 12/03/17 11:00 01/01/18 10:59 12/11/17 10:32 Allergies: Coded Allergies: No Known Allergies (Unverified , 08/10/17) ROS Limited/Unobtainable: No Subjective 62 YO F admitted with shortness of breath. Now COPD exacerbation. Cover for [facility]Dr Ye. Patient refused [facility] facility placement Objective Last Vital Signs Date Time Temp Pulse Resp B/P (MAP) Pulse Ox O2 Delivery O2 Flow Rate FiO2 12/11/17 13:14 102 20 100 Nasal Cannula 4.0 36 12/11/17 12:00 98.0 131/71 (91) 98.0 Intake and Output 12/10/17 12/11/17 19:00 07:00 Intake Total 600 ml Balance 600 ml Intake Oral 600 ml # Voids 2 Objective PHYSICAL EXAMINATION: GENERAL: The patient is well-developed and well-nourished female, in no apparent distress. HEENT: Eyes, pupils equal and responsive to light and accommodation. Extraocular movements are intact. NECK: Supple without lymphadenopathy. CHEST: Lungs are clear to auscultation bilaterally. A few scattered wheezes in bilateral lung meadows. Otherwise, clear to auscultation bilaterally without wheezes or rales. CARDIOVASCULAR: Regular rate. S1, S2 normal without murmurs, rubs, or gallops. ABDOMEN: Soft, nontender, and nondistended. Positive bowel sounds. No evidence of hepatosplenomegaly. Currently, no rebound or guarding noted. EXTREMITIES: Negative for clubbing, cyanosis, or edema. RECTAL/GENITAL: Refused. NEUROLOGIC: Cranial nerves II through XII are grossly intact without focal deficits. Motor strength is 5/5 bilaterally. Deep tendon reflexes are 2+ plantar. Assessment/Plan Problem List: (1) HTN (hypertension) Assessment & Plan: Continue cardizem (2) COPD exacerbation Assessment & Plan: Continue xopenex and spiriva-see pulmonary note. Await home oxygen to be delivered (3) Chronic respiratory failure Assessment/Plan Discharge planning: patient refusing [facility] fac placement-see soc work note. Manfred Jenkins MD Dec 11, 2017 14:33
[2017-12-11 16:00] VITALS: BP 121/79
[2017-12-11 20:00] VITALS: BP 134/115
[2017-12-12] VITALS: BP 113/86
[2017-12-12] MEDS: Bisacodyl EC 5mg tab ORAL PRN ×2 (00:01→08:16)
[2017-12-12] MEDS: Levalbuterol Inh UD 1.25mg/0.5ml HHN SCH ×4 (00:19→20:13)
[2017-12-12 04:00] VITALS: BP 150/86
[2017-12-12] MEDS: Norco 5mg/325mg tab ORAL PRN ×3 (05:55→18:22)
[2017-12-12 08:00] VITALS: BP 117/81
[2017-12-12] MEDS: Sucralfate 1gm tab ORAL SCH ×4 (08:16→20:27)
[2017-12-12] MEDS: dilTIAZem HCl 30mg tab ORAL SCH ×4 (08:17→20:27)
[2017-12-12] MEDS: Heparin 5000 units/ml inj SUBQ SCH ×2 (08:23→20:32)
[2017-12-12] MEDS: Milk of Magnesia 30ml Ud ORAL PRN (08:25)
[2017-12-12 12:00] VITALS: BP 133/88
--- NOTE | 2017-12-12 13:48 | Internal Med Progress Note ---
Subjective Date of Service: Dec 12, 2017 Physician Name Manfred Jenkins Attending Physician Bartolome Ye MD Current Medications Medications (Trade) Dose Ordered Sig/Rochelle Route PRN Reason Start Time Stop Time Status Last Admin Dose Admin Acetaminophen/ Hydrocodone Bitart ([place] 5/325) 1 tab Q6H PRN ORAL Moderate Pain (Pain Scale 4-6) 12/09/17 20:48 12/16/17 20:47 12/12/17 12:19 Al Hydroxide/Mg Hydroxide (Mylanta) 30 ml Q6H PRN ORAL Nausea & Vomiting 12/08/17 21:43 01/07/18 21:42 12/12/17 12:35 Bisacodyl (Dulcolax) 5 mg TWICE A DAY ORAL 12/12/17 18:00 01/10/18 11:47 Dextrose (Dextrose 50%) 25 ml Q30M PRN IV Hypoglycemia 12/02/17 19:00 01/01/18 08:28 Dextrose (Dextrose 50%) 50 ml Q30M PRN IV Hypoglycemia 12/02/17 19:00 01/01/18 08:29 Diltiazem HCl (Cardizem) 30 mg QID ORAL 12/02/17 21:00 01/01/18 08:59 12/12/17 12:19 Heparin Sodium (Porcine) (Heparin 5000 units/ml) 5,000 units EVERY 12 HOURS SUBQ 12/02/17 21:00 01/01/18 08:59 12/12/17 08:23 Ibuprofen (Motrin) 600 mg Q6H PRN ORAL For Pain 12/03/17 14:56 01/02/18 14:55 Levalbuterol HCl (Xopenex) 0.625 mg Q6HRT HHN 12/07/17 19:00 12/12/17 18:59 12/12/17 13:36 Magnesium Hydroxide (Mom) 30 ml DAILYPRN PRN ORAL Constipation 12/11/17 11:48 01/10/18 11:47 12/12/17 08:25 Nitroglycerin (Ntg) 0.4 mg Q5M X 3 DOSES PRN SL Prn Chest Pain 12/02/17 19:00 01/01/18 18:59 Ondansetron HCl (Zofran) 4 mg Q6H PRN IVP Nausea & Vomiting 12/02/17 20:45 01/01/18 08:32 12/12/17 12:30 Promethazine HCl/ Codeine (Phenergan with Codeine) 5 ml Q6H PRN ORAL cough 12/02/17 19:00 01/01/18 18:59 Sucralfate (Carafate) 1 gm FOUR TIMES A DAY ORAL 12/09/17 18:00 01/08/18 17:59 12/12/17 12:19 Tiotropium [place] (Spiriva Inhaler) 1 puff DAILY@1100 INH 12/03/17 11:00 01/01/18 10:59 12/12/17 10:45 Allergies: Coded Allergies: No Known Allergies (Unverified , 08/10/17) ROS Limited/Unobtainable: No Constitutional: Reports: no symptoms HEENT: Reports: no symptoms Cardiovascular: Reports: no symptoms Respiratory: Reports: no symptoms Gastrointestinal/Abdominal: Reports: no symptoms Genitourinary: Reports: no symptoms Neurologic/Psychiatric: Reports: no symptoms Subjective 62 YO F admitted with shortness of breath. Now COPD exacerbation. Cover for [facility]-Dr Ye. Patient refused shelter facility placement Objective Last Vital Signs Date Time Temp Pulse Resp B/P (MAP) Pulse Ox O2 Delivery O2 Flow Rate FiO2 12/12/17 13:36 101 20 97 Nasal Cannula 2.0 28 12/12/17 12:19 133/88 12/12/17 12:00 98.4 98.4 Intake and Output 12/11/17 12/12/17 19:00 07:00 Intake Total 500 ml Balance 500 ml Intake Oral 500 ml # Voids 3 3 Objective PHYSICAL EXAMINATION: GENERAL: The patient is well-developed and well-nourished female, in no apparent distress. HEENT: Eyes, pupils equal and responsive to light and accommodation. Extraocular movements are intact. NECK: Supple without lymphadenopathy. CHEST: Lungs are clear to auscultation bilaterally. A few scattered wheezes in bilateral lung meadows. Otherwise, clear to auscultation bilaterally without wheezes or rales. CARDIOVASCULAR: Regular rate. S1, S2 normal without murmurs, rubs, or gallops. ABDOMEN: Soft, nontender, and nondistended. Positive bowel sounds. No evidence of hepatosplenomegaly. Currently, no rebound or guarding noted. EXTREMITIES: Negative for clubbing, cyanosis, or edema. RECTAL/GENITAL: Refused. NEUROLOGIC: Cranial nerves II through XII are grossly intact without focal deficits. Motor strength is 5/5 bilaterally. Deep tendon reflexes are 2+ plantar. Assessment/Plan Problem List: (1) HTN (hypertension) Assessment & Plan: Continue cardizem (2) COPD exacerbation Assessment & Plan: Continue xopenex and spiriva-see pulmonary note. Await home oxygen to be delivered (3) Chronic respiratory failure Status: stable Assessment/Plan Discharge planning: patient refusing shelter fac placement-see soc work note. Manfred Jenkins MD Dec 12, 2017 13:48
[2017-12-12 16:00] VITALS: BP 131/84
[2017-12-12] MEDS: Bisacodyl EC 5mg tab ORAL SCH (17:18)
[2017-12-12 20:00] VITALS: BP 131/84
[2017-12-13] VITALS (7 sets, daily range): BP systolic 111–130; BP diastolic 72–90
[2017-12-13] MEDS: Norco 5mg/325mg tab ORAL PRN ×4 (00:22→18:38)
[2017-12-13] MEDS: Levalbuterol Inh UD 1.25mg/0.5ml HHN SCH ×4 (01:41→20:28)
[2017-12-13 06:41] LABS: BASOPHILS % (AUTO) 1.5 % (0.0-2.0); EOSINOPHILS % (AUTO) 1.3 % (0.0-3.0); HEMATOCRIT 36.2 % (37.0-47.0); HEMOGLOBIN 10.9 G/DL (12.0-16.0); LYMPHOCYTES % (AUTO) 19.8 % (20.0-45.0); MEAN CORPUSCULAR VOLUME 80 FL (80-99); MONOCYTES % (AUTO) 15.7 % (1.0-10.0); NEUTROPHILS % (AUTO) 61.8 % (45.0-75.0); PLATELET COUNT 215 K/UL (150-450); RED BLOOD COUNT 4.55 M/UL (4.20-5.40); RED CELL DISTRIBUTION WIDTH 17.8 % (11.6-14.8); WHITE BLOOD COUNT 5.7 K/UL (4.8-10.8)
[2017-12-13 06:56] LABS: ANION GAP 1 mmol/L (5-15); BLOOD UREA NITROGEN 18 mg/dL (7-18); CALCIUM 9.3 MG/DL (8.5-10.1); CARBON DIOXIDE 38 MMOL/L (21-32); CHLORIDE 101 MMOL/L (98-107); CREATININE 0.6 MG/DL (0.55-1.30); POTASSIUM 4.6 MMOL/L (3.5-5.1); SODIUM 140 MMOL/L (136-145)
[2017-12-13] MEDS: Sucralfate 1gm tab ORAL SCH ×4 (08:33→20:34)
[2017-12-13] MEDS: dilTIAZem HCl 30mg tab ORAL SCH ×4 (08:34→20:34)
[2017-12-13] MEDS: Heparin 5000 units/ml inj SUBQ SCH ×2 (08:35→20:36)
[2017-12-13] MEDS: Bisacodyl EC 5mg tab ORAL SCH ×2 (08:46→18:00)
--- NOTE | 2017-12-13 19:17 | Internal Med Progress Note ---
Subjective Date of Service: Dec 13, 2017 Physician Name Jenkins,Manfred Attending Physician Bartolome Ye MD Current Medications Medications (Trade) Dose Ordered Sig/Rochelle Route PRN Reason Start Time Stop Time Status Last Admin Dose Admin Acetaminophen (Tylenol) 650 mg Q6H PRN ORAL Mild Pain/Temp > 100.5 12/13/17 07:43 01/12/18 07:42 Acetaminophen/ Hydrocodone Bitart ([place] 5/325) 1 tab Q6H PRN ORAL Moderate Pain (Pain Scale 4-6) 12/09/17 20:48 12/16/17 20:47 12/13/17 18:38 Al Hydroxide/Mg Hydroxide (Mylanta) 30 ml Q6H PRN ORAL Nausea & Vomiting 12/08/17 21:43 01/07/18 21:42 12/13/17 17:37 Bisacodyl (Dulcolax) 5 mg TWICE A DAY ORAL 12/12/17 18:00 01/10/18 11:47 12/12/17 17:18 Bisacodyl (Dulcolax) 10 mg DAILYPRN PRN RECTAL Constipation 12/12/17 14:30 01/11/18 14:29 Dextrose (Dextrose 50%) 25 ml Q30M PRN IV Hypoglycemia 12/02/17 19:00 01/01/18 08:28 Dextrose (Dextrose 50%) 50 ml Q30M PRN IV Hypoglycemia 12/02/17 19:00 01/01/18 08:29 Diltiazem HCl (Cardizem) 30 mg QID ORAL 12/02/17 21:00 01/01/18 08:59 12/13/17 18:37 Heparin Sodium (Porcine) (Heparin 5000 units/ml) 5,000 units EVERY 12 HOURS SUBQ 12/02/17 21:00 01/01/18 08:59 12/13/17 08:35 Ibuprofen (Motrin) 600 mg Q6H PRN ORAL For Pain 12/03/17 14:56 01/02/18 14:55 Levalbuterol HCl (Xopenex) 0.625 mg Q6HRT HHN 12/12/17 19:00 12/17/17 18:59 12/13/17 13:32 Magnesium Hydroxide (Mom) 30 ml DAILYPRN PRN ORAL Constipation 12/11/17 11:48 01/10/18 11:47 12/12/17 08:25 Nitroglycerin (Ntg) 0.4 mg Q5M X 3 DOSES PRN SL Prn Chest Pain 12/02/17 19:00 01/01/18 18:59 Ondansetron HCl (Zofran) 4 mg Q6H PRN IVP Nausea & Vomiting 12/02/17 20:45 01/01/18 08:32 12/13/17 14:02 Promethazine HCl/ Codeine (Phenergan with Codeine) 5 ml Q6H PRN ORAL cough 12/02/17 19:00 01/01/18 18:59 Sucralfate (Carafate) 1 gm FOUR TIMES A DAY ORAL 12/09/17 18:00 01/08/18 17:59 12/13/17 18:37 Tiotropium [place] (Spiriva Inhaler) 1 puff DAILY@1100 INH 12/03/17 11:00 01/01/18 10:59 12/12/17 20:25 Allergies: Coded Allergies: No Known Allergies (Unverified , 08/10/17) ROS Limited/Unobtainable: No Constitutional: Reports: no symptoms HEENT: Reports: no symptoms Cardiovascular: Reports: no symptoms Respiratory: Reports: shortness of breath Gastrointestinal/Abdominal: Reports: no symptoms Genitourinary: Reports: no symptoms Neurologic/Psychiatric: Reports: no symptoms Subjective 62 YO F admitted with shortness of breath. Now COPD exacerbation. Cover for [facility]Dr Ye. Patient refused [facility] facility placement; await portable oxygen concentrator Objective Last Vital Signs Date Time Temp Pulse Resp B/P (MAP) Pulse Ox O2 Delivery O2 Flow Rate FiO2 12/13/17 18:37 108 120/80 12/13/17 16:00 97.0 20 99 97.0 12/13/17 13:32 Nasal Cannula 3.0 28 Laboratory Tests Test 12/13/17 06:15 White Blood Count 5.7 K/UL (4.8-10.8) Red Blood Count 4.55 M/UL (4.20-5.40) Hemoglobin 10.9 G/DL (12.0-16.0) L Hematocrit 36.2 % (37.0-47.0) L Mean Corpuscular Volume 80 FL (80-99) Mean Corpuscular Hemoglobin 23.9 PG (27.0-31.0) L Mean Corpuscular Hemoglobin Concent 30.0 G/DL (32.0-36.0) L Red Cell Distribution Width 17.8 % (11.6-14.8) H Platelet Count 215 K/UL (150-450) Mean Platelet Volume 7.4 FL (6.5-10.1) Neutrophils (%) (Auto) 61.8 % (45.0-75.0) Lymphocytes (%) (Auto) 19.8 % (20.0-45.0) L Monocytes (%) (Auto) 15.7 % (1.0-10.0) H Eosinophils (%) (Auto) 1.3 % (0.0-3.0) Basophils (%) (Auto) 1.5 % (0.0-2.0) Sodium Level 140 MMOL/L (136-145) Potassium Level 4.6 MMOL/L (3.5-5.1) Chloride Level 101 MMOL/L (98-107) Carbon Dioxide Level 38 MMOL/L (21-32) H Anion Gap 1 mmol/L (5-15) L Blood Urea Nitrogen 18 mg/dL (7-18) Creatinine 0.6 MG/DL (0.55-1.30) Estimat Glomerular Filtration Rate > 60 mL/min (>60) Glucose Level 89 MG/DL (74-106) Calcium Level 9.3 MG/DL (8.5-10.1) Intake and Output 12/12/17 12/13/17 19:00 07:00 Intake Total 600 ml 250 ml Balance 600 ml 250 ml Intake Oral 600 ml 250 ml # Voids 3 3 # Bowel Movements 1 Objective PHYSICAL EXAMINATION: GENERAL: The patient is well-developed and well-nourished female, in no apparent distress. HEENT: Eyes, pupils equal and responsive to light and accommodation. Extraocular movements are intact. NECK: Supple without lymphadenopathy. CHEST: Lungs are clear to auscultation bilaterally. A few scattered wheezes in bilateral lung meadows. Otherwise, clear to auscultation bilaterally without wheezes or rales. CARDIOVASCULAR: Regular rate. S1, S2 normal without murmurs, rubs, or gallops. ABDOMEN: Soft, nontender, and nondistended. Positive bowel sounds. No evidence of hepatosplenomegaly. Currently, no rebound or guarding noted. EXTREMITIES: Negative for clubbing, cyanosis, or edema. RECTAL/GENITAL: Refused. NEUROLOGIC: Cranial nerves II through XII are grossly intact without focal deficits. Motor strength is 5/5 bilaterally. Deep tendon reflexes are 2+ plantar. Assessment/Plan Problem List: (1) HTN (hypertension) Assessment & Plan: Continue cardizem (2) COPD exacerbation Assessment & Plan: Continue xopenex and spiriva-see pulmonary note. Await home oxygen to be delivered (3) Chronic respiratory failure Assessment/Plan Discharge planning: patient refusing [facility] fac placement; await portable oxygen concentrator-see soc work note. Manfred Jenkins MD Dec 13, 2017 19:17
[2017-12-14] VITALS: BP 123/85
[2017-12-14] MEDS: Levalbuterol Inh UD 1.25mg/0.5ml HHN SCH ×4 (00:25→19:12)
[2017-12-14] MEDS: Norco 5mg/325mg tab ORAL PRN ×4 (00:31→18:51)
[2017-12-14 04:00] VITALS: BP 129/88
[2017-12-14 08:21] VITALS: BP 138/79
[2017-12-14] MEDS: Bisacodyl EC 5mg tab ORAL SCH ×2 (08:31→18:51)
[2017-12-14] MEDS: dilTIAZem HCl 30mg tab ORAL SCH ×4 (08:31→20:55)
[2017-12-14] MEDS: Sucralfate 1gm tab ORAL SCH ×4 (08:35→20:55)
[2017-12-14] MEDS: Heparin 5000 units/ml inj SUBQ SCH ×2 (08:35→20:56)
[2017-12-14 12:02] VITALS: BP 124/59
--- NOTE | 2017-12-14 16:47 | Internal Med Progress Note ---
Subjective Date of Service: Dec 14, 2017 Physician Name AliceManfred Attending Physician Bartolome Ye MD Current Medications Medications (Trade) Dose Ordered Sig/Rochelle Route PRN Reason Start Time Stop Time Status Last Admin Dose Admin Acetaminophen (Tylenol) 650 mg Q6H PRN ORAL Mild Pain/Temp > 100.5 12/13/17 07:43 01/12/18 07:42 Acetaminophen/ Hydrocodone Bitart ([place] 5/325) 1 tab Q6H PRN ORAL Moderate Pain (Pain Scale 4-6) 12/09/17 20:48 12/16/17 20:47 12/14/17 12:40 Al Hydroxide/Mg Hydroxide (Mylanta) 30 ml Q6H PRN ORAL Nausea & Vomiting 12/08/17 21:43 01/07/18 21:42 12/13/17 23:15 Bisacodyl (Dulcolax) 5 mg TWICE A DAY ORAL 12/12/17 18:00 01/10/18 11:47 12/14/17 08:31 Bisacodyl (Dulcolax) 10 mg DAILYPRN PRN RECTAL Constipation 12/12/17 14:30 01/11/18 14:29 Dextrose (Dextrose 50%) 25 ml Q30M PRN IV Hypoglycemia 12/02/17 19:00 01/01/18 08:28 Dextrose (Dextrose 50%) 50 ml Q30M PRN IV Hypoglycemia 12/02/17 19:00 01/01/18 08:29 Diltiazem HCl (Cardizem) 30 mg QID ORAL 12/02/17 21:00 01/01/18 08:59 12/14/17 13:07 Heparin Sodium (Porcine) (Heparin 5000 units/ml) 5,000 units EVERY 12 HOURS SUBQ 12/02/17 21:00 01/01/18 08:59 12/14/17 08:35 Ibuprofen (Motrin) 600 mg Q6H PRN ORAL For Pain 12/03/17 14:56 01/02/18 14:55 Levalbuterol HCl (Xopenex) 0.625 mg Q6HRT HHN 12/12/17 19:00 12/17/17 18:59 12/14/17 13:13 Magnesium Hydroxide (Mom) 30 ml DAILYPRN PRN ORAL Constipation 12/11/17 11:48 01/10/18 11:47 12/12/17 08:25 Nitroglycerin (Ntg) 0.4 mg Q5M X 3 DOSES PRN SL Prn Chest Pain 12/02/17 19:00 01/01/18 18:59 Ondansetron HCl (Zofran) 4 mg Q6H PRN IVP Nausea & Vomiting 12/02/17 20:45 01/01/18 08:32 12/14/17 12:41 Promethazine HCl/ Codeine (Phenergan with Codeine) 5 ml Q6H PRN ORAL cough 12/02/17 19:00 01/01/18 18:59 Sucralfate (Carafate) 1 gm FOUR TIMES A DAY ORAL 12/09/17 18:00 01/08/18 17:59 12/14/17 13:07 Tiotropium [place] (Spiriva Inhaler) 1 puff DAILY@1100 INH 12/03/17 11:00 01/01/18 10:59 12/14/17 11:06 Allergies: Coded Allergies: No Known Allergies (Unverified , 08/10/17) ROS Limited/Unobtainable: No Constitutional: Reports: no symptoms HEENT: Reports: no symptoms Cardiovascular: Reports: no symptoms Respiratory: Reports: no symptoms Gastrointestinal/Abdominal: Reports: no symptoms Genitourinary: Reports: no symptoms Neurologic/Psychiatric: Reports: no symptoms Subjective 62 YO F admitted with shortness of breath. Now COPD exacerbation. Cover for [facility]-Dr Ye. Patient refused nursing home facility placement; await portable oxygen concentrator Objective Last Vital Signs Date Time Temp Pulse Resp B/P (MAP) Pulse Ox O2 Delivery O2 Flow Rate FiO2 12/14/17 13:23 109 20 100 Nasal Cannula 3.0 32 12/14/17 13:07 133/75 12/14/17 12:02 98.4 98.4 Intake and Output 12/13/17 12/14/17 19:00 07:00 Intake Total 240 ml 480 ml Balance 240 ml 480 ml Intake Oral 240 ml 480 ml # Voids 1 3 Objective PHYSICAL EXAMINATION: GENERAL: The patient is well-developed and well-nourished female, in no apparent distress. HEENT: Eyes, pupils equal and responsive to light and accommodation. Extraocular movements are intact. NECK: Supple without lymphadenopathy. CHEST: Lungs are clear to auscultation bilaterally. A few scattered wheezes in bilateral lung meadows. Otherwise, clear to auscultation bilaterally without wheezes or rales. CARDIOVASCULAR: Regular rate. S1, S2 normal without murmurs, rubs, or gallops. ABDOMEN: Soft, nontender, and nondistended. Positive bowel sounds. No evidence of hepatosplenomegaly. Currently, no rebound or guarding noted. EXTREMITIES: Negative for clubbing, cyanosis, or edema. RECTAL/GENITAL: Refused. NEUROLOGIC: Cranial nerves II through XII are grossly intact without focal deficits. Motor strength is 5/5 bilaterally. Deep tendon reflexes are 2+ plantar. Assessment/Plan Problem List: (1) HTN (hypertension) Assessment & Plan: Continue cardizem (2) COPD exacerbation Assessment & Plan: Continue xopenex and spiriva-see pulmonary note. Await home oxygen to be delivered (3) Chronic respiratory failure Assessment/Plan Discharge planning: patient refusing nursing home fac placement; await portable oxygen concentrator-see soc work note. Manfred Jenkins MD Dec 14, 2017 16:47
[2017-12-14 18:43] VITALS: BP 135/98
[2017-12-14 20:00] VITALS: BP 119/90
[2017-12-15] MEDS: Norco 5mg/325mg tab ORAL PRN ×4 (01:28→20:25)
[2017-12-15] MEDS: Levalbuterol Inh UD 1.25mg/0.5ml HHN SCH ×4 (01:28→20:05)
[2017-12-15] MEDS: Milk of Magnesia 30ml Ud ORAL PRN (01:30)
[2017-12-15 04:00] VITALS: BP 143/87
[2017-12-15 08:00] VITALS: BP 119/90
[2017-12-15] MEDS: dilTIAZem HCl 30mg tab ORAL SCH ×4 (08:11→20:24)
[2017-12-15] MEDS: Heparin 5000 units/ml inj SUBQ SCH ×2 (08:14→20:26)
[2017-12-15] MEDS: Sucralfate 1gm tab ORAL SCH ×4 (08:36→20:23)
[2017-12-15] MEDS: Bisacodyl EC 5mg tab ORAL SCH ×2 (09:00→17:14)
[2017-12-15 12:00] VITALS: BP 111/82
--- NOTE | 2017-12-15 12:09 | Internal Med Progress Note ---
Subjective Date of Service: Dec 15, 2017 Physician Name Manfred Jenkins Attending Physician Bartolome Ye MD Current Medications Medications (Trade) Dose Ordered Sig/Rochelle Route PRN Reason Start Time Stop Time Status Last Admin Dose Admin Acetaminophen (Tylenol) 650 mg Q6H PRN ORAL Mild Pain/Temp > 100.5 12/13/17 07:43 01/12/18 07:42 Acetaminophen/ Hydrocodone Bitart ([place] 5/325) 1 tab Q6H PRN ORAL Moderate Pain (Pain Scale 4-6) 12/09/17 20:48 12/16/17 20:47 12/15/17 08:10 Al Hydroxide/Mg Hydroxide (Mylanta) 30 ml Q6H PRN ORAL Nausea & Vomiting 12/08/17 21:43 01/07/18 21:42 12/13/17 23:15 Bisacodyl (Dulcolax) 5 mg TWICE A DAY ORAL 12/12/17 18:00 01/10/18 11:47 12/14/17 18:51 Bisacodyl (Dulcolax) 10 mg DAILYPRN PRN RECTAL Constipation 12/12/17 14:30 01/11/18 14:29 12/15/17 08:12 Dextrose (Dextrose 50%) 25 ml Q30M PRN IV Hypoglycemia 12/02/17 19:00 01/01/18 08:28 Dextrose (Dextrose 50%) 50 ml Q30M PRN IV Hypoglycemia 12/02/17 19:00 01/01/18 08:29 Diltiazem HCl (Cardizem) 30 mg QID ORAL 12/02/17 21:00 01/01/18 08:59 12/15/17 12:04 Heparin Sodium (Porcine) (Heparin 5000 units/ml) 5,000 units EVERY 12 HOURS SUBQ 12/02/17 21:00 01/01/18 08:59 12/15/17 08:14 Ibuprofen (Motrin) 600 mg Q6H PRN ORAL For Pain 12/03/17 14:56 01/02/18 14:55 Levalbuterol HCl (Xopenex) 0.625 mg Q6HRT HHN 12/12/17 19:00 12/17/17 18:59 12/15/17 08:43 Magnesium Hydroxide (Mom) 30 ml DAILYPRN PRN ORAL Constipation 12/11/17 11:48 01/10/18 11:47 12/15/17 01:30 Nitroglycerin (Ntg) 0.4 mg Q5M X 3 DOSES PRN SL Prn Chest Pain 12/02/17 19:00 01/01/18 18:59 Ondansetron HCl (Zofran) 4 mg Q6H PRN IVP Nausea & Vomiting 12/02/17 20:45 01/01/18 08:32 12/15/17 08:12 Promethazine HCl/ Codeine (Phenergan with Codeine) 5 ml Q6H PRN ORAL cough 12/02/17 19:00 01/01/18 18:59 Sucralfate (Carafate) 1 gm FOUR TIMES A DAY ORAL 12/09/17 18:00 01/08/18 17:59 12/15/17 12:03 Tiotropium [place] (Spiriva Inhaler) 1 puff DAILY@1100 INH 12/03/17 11:00 01/01/18 10:59 12/14/17 11:06 Allergies: Coded Allergies: No Known Allergies (Unverified , 08/10/17) ROS Limited/Unobtainable: No Constitutional: Reports: no symptoms HEENT: Reports: no symptoms Cardiovascular: Reports: no symptoms Respiratory: Reports: shortness of breath Gastrointestinal/Abdominal: Reports: no symptoms Genitourinary: Reports: no symptoms Neurologic/Psychiatric: Reports: no symptoms Subjective 62 YO F admitted with shortness of breath. Now COPD exacerbation. Cover for [facility]Dr Ye. Patient refused correction facility placement; await portable oxygen concentrator Objective Last Vital Signs Date Time Temp Pulse Resp B/P (MAP) Pulse Ox O2 Delivery O2 Flow Rate FiO2 12/15/17 12:04 100 111/82 12/15/17 09:00 Nasal Cannula 3.0 12/15/17 08:53 18 100 32 12/15/17 08:40 98.2 Microbiology Date/Time Source Procedure Growth Status 12/13/17 10:50 Blood Blood Culture - Preliminary NO GROWTH AFTER 24 HOURS Resulted Intake and Output 12/14/17 12/15/17 19:00 07:00 Intake Total 1985 ml Balance 1985 ml Intake Oral 1985 ml # Voids 3 4 Objective PHYSICAL EXAMINATION: GENERAL: The patient is well-developed and well-nourished female, in no apparent distress. HEENT: Eyes, pupils equal and responsive to light and accommodation. Extraocular movements are intact. NECK: Supple without lymphadenopathy. CHEST: Lungs are clear to auscultation bilaterally. A few scattered wheezes in bilateral lung meadows. Otherwise, clear to auscultation bilaterally without wheezes or rales. CARDIOVASCULAR: Regular rate. S1, S2 normal without murmurs, rubs, or gallops. ABDOMEN: Soft, nontender, and nondistended. Positive bowel sounds. No evidence of hepatosplenomegaly. Currently, no rebound or guarding noted. EXTREMITIES: Negative for clubbing, cyanosis, or edema. RECTAL/GENITAL: Refused. NEUROLOGIC: Cranial nerves II through XII are grossly intact without focal deficits. Motor strength is 5/5 bilaterally. Deep tendon reflexes are 2+ plantar. Assessment/Plan Problem List: (1) HTN (hypertension) Assessment & Plan: Continue cardizem (2) COPD exacerbation Assessment & Plan: Continue xopenex and spiriva-see pulmonary note. Await home oxygen to be delivered (3) Chronic respiratory failure Assessment/Plan Discharge planning: patient refusing [facility] fac placement; await portable oxygen concentrator-see soc work note. Manfred Jenkins MD Dec 15, 2017 12:09
[2017-12-15 16:00] VITALS: BP 132/89
[2017-12-15 20:00] VITALS: BP 138/79
[2017-12-16] VITALS: BP 133/91
[2017-12-16] MEDS: Levalbuterol Inh UD 1.25mg/0.5ml HHN SCH ×4 (00:55→18:52)
[2017-12-16] MEDS: Norco 5mg/325mg tab ORAL PRN ×4 (02:33→21:55)
[2017-12-16 04:00] VITALS: BP 124/75
[2017-12-16 08:00] VITALS: BP 118/84
[2017-12-16] MEDS: dilTIAZem HCl 30mg tab ORAL SCH ×4 (08:20→20:48)
[2017-12-16] MEDS: Bisacodyl EC 5mg tab ORAL SCH ×2 (08:21→17:48)
[2017-12-16] MEDS: Sucralfate 1gm tab ORAL SCH ×4 (08:21→20:48)
[2017-12-16] MEDS: Heparin 5000 units/ml inj SUBQ SCH ×2 (08:25→20:23)
--- NOTE | 2017-12-16 14:24 | Pulmonology Progress Note ---
Assessment/Plan Problems: (1) Acute on chronic respiratory failure (2) COPD exacerbation (3) Emphysema lung Assessment/Plan respiratory treatment all reviewed no new events all reviewed dc planning in progress Subjective ROS Limited/Unobtainable: No Constitutional: Reports: no symptoms HEENT: Repors: no symptoms Allergies: Coded Allergies: No Known Allergies (Unverified , 08/10/17) Objective Last 24 Hour Vital Signs Date Time Temp Pulse Resp B/P (MAP) Pulse Ox O2 Delivery O2 Flow Rate FiO2 12/16/17 13:09 Nasal Cannula 12/16/17 13:09 91 118/84 12/16/17 13:09 Nasal Cannula 12/16/17 09:00 Nasal Cannula 3.0 12/16/17 08:51 98.9 12/16/17 08:30 91 18 99 Nasal Cannula 3.0 32 12/16/17 08:21 98.9 12/16/17 08:20 100 118/84 12/16/17 08:19 94 20 98 Nasal Cannula 4.0 36 12/16/17 08:19 Nasal Cannula 4.0 36 12/16/17 08:18 98 Nasal Cannula 4.0 36 12/16/17 08:00 98.1 100 18 118/84 (95) 100 98.1 12/16/17 04:00 98.9 101 18 124/75 (91) 97 98.9 12/16/17 01:15 89 18 99 Nasal Cannula 3.0 32 12/16/17 00:56 92 18 98 Nasal Cannula 3.0 32 12/16/17 00:00 98.0 107 18 133/91 (105) 97 98.0 12/15/17 23:34 101 20 Nasal Cannula 3.0 32 12/15/17 21:00 Nasal Cannula 3.0 12/15/17 20:24 105 138/79 12/15/17 20:12 94 18 99 Nasal Cannula 3.0 32 12/15/17 20:09 Nasal Cannula 3.0 32 12/15/17 20:08 98 Nasal Cannula 3.0 32 12/15/17 20:05 98 18 99 Nasal Cannula 3.0 32 12/15/17 20:00 99.3 105 18 138/79 (98) 98 99.3 12/15/17 17:13 105 132/89 12/15/17 16:00 99.2 105 19 132/89 (103) 99 99.2 Intake and Output 12/15/17 12/16/17 19:00 07:00 Intake Total 800 ml Balance 800 ml Other 800 ml # Voids 2 2 General Appearance: cachetic HEENT: normocephalic, atraumatic Respiratory/Chest: chest wall non-tender, lungs clear Cardiovascular: normal peripheral pulses, normal rate Abdomen: normal bowel sounds, no organomegaly Extremities: no cyanosis Skin: no rash Current Medications Medications (Trade) Dose Ordered Sig/Rochelle Route PRN Reason Start Time Stop Time Status Last Admin Dose Admin Acetaminophen (Tylenol) 650 mg Q6H PRN ORAL Mild Pain/Temp > 100.5 12/13/17 07:43 01/12/18 07:42 Acetaminophen/ Hydrocodone Bitart ([place] 5/325) 1 tab Q6H PRN ORAL Moderate Pain (Pain Scale 4-6) 12/09/17 20:48 12/16/17 20:47 12/16/17 08:21 Al Hydroxide/Mg Hydroxide (Mylanta) 30 ml Q6H PRN ORAL Nausea & Vomiting 12/08/17 21:43 01/07/18 21:42 12/13/17 23:15 Bisacodyl (Dulcolax) 5 mg TWICE A DAY ORAL 12/12/17 18:00 01/10/18 11:47 12/16/17 08:21 Bisacodyl (Dulcolax) 10 mg DAILYPRN PRN RECTAL Constipation 12/12/17 14:30 01/11/18 14:29 12/15/17 08:12 Dextrose (Dextrose 50%) 25 ml Q30M PRN IV Hypoglycemia 12/02/17 19:00 01/01/18 08:28 Dextrose (Dextrose 50%) 50 ml Q30M PRN IV Hypoglycemia 12/02/17 19:00 01/01/18 08:29 Diltiazem HCl (Cardizem) 30 mg QID ORAL 12/02/17 21:00 01/01/18 08:59 12/16/17 13:09 Heparin Sodium (Porcine) (Heparin 5000 units/ml) 5,000 units EVERY 12 HOURS SUBQ 12/02/17 21:00 01/01/18 08:59 12/16/17 08:25 Ibuprofen (Motrin) 600 mg Q6H PRN ORAL For Pain 12/03/17 14:56 01/02/18 14:55 Levalbuterol HCl (Xopenex) 0.625 mg Q6HRT HHN 12/12/17 19:00 12/17/17 18:59 12/16/17 08:17 Magnesium Hydroxide (Mom) 30 ml DAILYPRN PRN ORAL Constipation 12/11/17 11:48 01/10/18 11:47 12/15/17 01:30 Nitroglycerin (Ntg) 0.4 mg Q5M X 3 DOSES PRN SL Prn Chest Pain 12/02/17 19:00 01/01/18 18:59 Ondansetron HCl (Zofran) 4 mg Q6H PRN IVP Nausea & Vomiting 12/02/17 20:45 01/01/18 08:32 12/16/17 08:21 Promethazine HCl/ Codeine (Phenergan with Codeine) 5 ml Q6H PRN ORAL cough 12/02/17 19:00 01/01/18 18:59 Sucralfate (Carafate) 1 gm FOUR TIMES A DAY ORAL 12/09/17 18:00 01/08/18 17:59 12/16/17 13:08 Tiotropium [place] (Spiriva Inhaler) 1 puff DAILY@1100 INH 12/03/17 11:00 01/01/18 10:59 12/14/17 11:06 Jakob Hoang MD Dec 16, 2017 14:24
[2017-12-16 16:00] VITALS: BP 121/83
--- NOTE | 2017-12-16 18:35 | Internal Med Progress Note ---
Subjective Date of Service: Dec 16, 2017 Physician Name Jenkins,Manfred Attending Physician Bartolome Ye MD Current Medications Medications (Trade) Dose Ordered Sig/Rochelle Route PRN Reason Start Time Stop Time Status Last Admin Dose Admin Acetaminophen (Tylenol) 650 mg Q6H PRN ORAL Mild Pain/Temp > 100.5 12/13/17 07:43 01/12/18 07:42 Acetaminophen/ Hydrocodone Bitart ([place] 5/325) 1 tab Q6H PRN ORAL Moderate Pain (Pain Scale 4-6) 12/09/17 20:48 12/16/17 20:47 12/16/17 14:47 Al Hydroxide/Mg Hydroxide (Mylanta) 30 ml Q6H PRN ORAL Nausea & Vomiting 12/08/17 21:43 01/07/18 21:42 12/13/17 23:15 Bisacodyl (Dulcolax) 5 mg TWICE A DAY ORAL 12/12/17 18:00 01/10/18 11:47 12/16/17 17:48 Bisacodyl (Dulcolax) 10 mg DAILYPRN PRN RECTAL Constipation 12/12/17 14:30 01/11/18 14:29 12/15/17 08:12 Dextrose (Dextrose 50%) 25 ml Q30M PRN IV Hypoglycemia 12/02/17 19:00 01/01/18 08:28 Dextrose (Dextrose 50%) 50 ml Q30M PRN IV Hypoglycemia 12/02/17 19:00 01/01/18 08:29 Diltiazem HCl (Cardizem) 30 mg QID ORAL 12/02/17 21:00 01/01/18 08:59 12/16/17 17:47 Heparin Sodium (Porcine) (Heparin 5000 units/ml) 5,000 units EVERY 12 HOURS SUBQ 12/02/17 21:00 01/01/18 08:59 12/16/17 08:25 Ibuprofen (Motrin) 600 mg Q6H PRN ORAL For Pain 12/03/17 14:56 01/02/18 14:55 Levalbuterol HCl (Xopenex) 0.625 mg Q6HRT HHN 12/12/17 19:00 12/17/17 18:59 12/16/17 08:17 Magnesium Hydroxide (Mom) 30 ml DAILYPRN PRN ORAL Constipation 12/11/17 11:48 01/10/18 11:47 12/15/17 01:30 Nitroglycerin (Ntg) 0.4 mg Q5M X 3 DOSES PRN SL Prn Chest Pain 12/02/17 19:00 01/01/18 18:59 Ondansetron HCl (Zofran) 4 mg Q6H PRN IVP Nausea & Vomiting 12/02/17 20:45 01/01/18 08:32 12/16/17 08:21 Promethazine HCl/ Codeine (Phenergan with Codeine) 5 ml Q6H PRN ORAL cough 12/02/17 19:00 01/01/18 18:59 Sucralfate (Carafate) 1 gm FOUR TIMES A DAY ORAL 12/09/17 18:00 01/08/18 17:59 12/16/17 17:47 Tiotropium [place] (Spiriva Inhaler) 1 puff DAILY@1100 INH 12/03/17 11:00 01/01/18 10:59 12/14/17 11:06 Allergies: Coded Allergies: No Known Allergies (Unverified , 08/10/17) Subjective 62 YO F admitted with shortness of breath. Now COPD exacerbation. Cover for [facility]-Dr Ye. Patient refused half-way facility placement; await portable oxygen concentrator Objective Last Vital Signs Date Time Temp Pulse Resp B/P (MAP) Pulse Ox O2 Delivery O2 Flow Rate FiO2 12/16/17 17:47 102 121/83 12/16/17 16:00 99.9 18 98 99.9 12/16/17 13:09 Nasal Cannula 12/16/17 09:00 3.0 12/16/17 08:30 32 Intake and Output 12/15/17 12/16/17 19:00 07:00 Intake Total 800 ml Balance 800 ml Other 800 ml # Voids 2 2 Objective PHYSICAL EXAMINATION: GENERAL: The patient is well-developed and well-nourished female, in no apparent distress. HEENT: Eyes, pupils equal and responsive to light and accommodation. Extraocular movements are intact. NECK: Supple without lymphadenopathy. CHEST: Lungs are clear to auscultation bilaterally. A few scattered wheezes in bilateral lung meadows. Otherwise, clear to auscultation bilaterally without wheezes or rales. CARDIOVASCULAR: Regular rate. S1, S2 normal without murmurs, rubs, or gallops. ABDOMEN: Soft, nontender, and nondistended. Positive bowel sounds. No evidence of hepatosplenomegaly. Currently, no rebound or guarding noted. EXTREMITIES: Negative for clubbing, cyanosis, or edema. RECTAL/GENITAL: Refused. NEUROLOGIC: Cranial nerves II through XII are grossly intact without focal deficits. Motor strength is 5/5 bilaterally. Deep tendon reflexes are 2+ plantar. Assessment/Plan Problem List: (1) HTN (hypertension) Assessment & Plan: Continue cardizem (2) COPD exacerbation Assessment & Plan: Continue xopenex and spiriva-see pulmonary note. Await home oxygen to be delivered (3) Chronic respiratory failure Status: stable Assessment/Plan Discharge planning: patient refusing half-way fac placement; await portable oxygen concentrator-see soc work note. Patient refused to leave earlier today. I spoke with patient and patient sister "". Both were informed that patient will be discharged Wednesday12/17/17. Nurse supervisor coil winding, Aaron junior. Manfred Jenkins MD Dec 16, 2017 18:35
[2017-12-16 20:00] VITALS: BP 124/84
[2017-12-16] MEDS ORDERED: Norco 5mg/325mg tab ORAL PRN (21:30)
[2017-12-17] VITALS: BP 124/82
[2017-12-17] MEDS: Levalbuterol Inh UD 1.25mg/0.5ml HHN SCH ×3 (00:51→13:17)
[2017-12-17 04:00] VITALS: BP 112/75
[2017-12-17] MEDS: Norco 5mg/325mg tab ORAL PRN ×2 (04:01→10:01)
[2017-12-17 08:00] VITALS: BP 147/79
[2017-12-17 08:06] LABS: BASOPHILS % (AUTO) 2.8 % (0.0-2.0); EOSINOPHILS % (AUTO) 2.2 % (0.0-3.0); HEMATOCRIT 38.9 % (37.0-47.0); HEMOGLOBIN 11.7 G/DL (12.0-16.0); MEAN CORPUSCULAR VOLUME 79 FL (80-99); MONOCYTES % (AUTO) 11.8 % (1.0-10.0); NEUTROPHILS % (AUTO) 67.2 % (45.0-75.0); PLATELET COUNT 268 K/UL (150-450); RED BLOOD COUNT 4.91 M/UL (4.20-5.40); RED CELL DISTRIBUTION WIDTH 17.6 % (11.6-14.8)
[2017-12-17 08:20] LABS: ANION GAP 3 mmol/L (5-15); BLOOD UREA NITROGEN 19 mg/dL (7-18); CALCIUM 9.9 MG/DL (8.5-10.1); CARBON DIOXIDE 39 MMOL/L (21-32); CHLORIDE 99 MMOL/L (98-107); CREATININE 0.6 MG/DL (0.55-1.30); POTASSIUM 4.4 MMOL/L (3.5-5.1); SODIUM 141 MMOL/L (136-145)
[2017-12-17] MEDS: Heparin 5000 units/ml inj SUBQ SCH ×2 (09:00→09:15)
[2017-12-17 09:14] VITALS: BP 147/79
[2017-12-17] MEDS: Bisacodyl EC 5mg tab ORAL SCH ×2 (09:14→18:00)
[2017-12-17] MEDS: dilTIAZem HCl 30mg tab ORAL SCH ×3 (09:14→18:00)
[2017-12-17] MEDS: Sucralfate 1gm tab ORAL SCH ×3 (09:14→18:00)
--- NOTE | 2017-12-17 11:09 | Internal Med Progress Note ---
Subjective Physician Name Bartolome Ye Attending Physician Bartolome Ye MD Current Medications Medications (Trade) Dose Ordered Sig/Rochelle Route PRN Reason Start Time Stop Time Status Last Admin Dose Admin Acetaminophen (Tylenol) 650 mg Q6H PRN ORAL Mild Pain/Temp > 100.5 12/13/17 07:43 01/12/18 07:42 Acetaminophen/ Hydrocodone Bitart ([place] 5/325) 1 tab Q6H PRN ORAL Moderate Pain (Pain Scale 4-6) 12/16/17 21:30 12/23/17 21:29 12/17/17 10:01 Al Hydroxide/Mg Hydroxide (Mylanta) 30 ml Q6H PRN ORAL Nausea & Vomiting 12/08/17 21:43 01/07/18 21:42 12/16/17 20:27 Bisacodyl (Dulcolax) 5 mg TWICE A DAY ORAL 12/12/17 18:00 01/10/18 11:47 12/17/17 09:14 Bisacodyl (Dulcolax) 10 mg DAILYPRN PRN RECTAL Constipation 12/12/17 14:30 01/11/18 14:29 12/15/17 08:12 Dextrose (Dextrose 50%) 25 ml Q30M PRN IV Hypoglycemia 12/02/17 19:00 01/01/18 08:28 Dextrose (Dextrose 50%) 50 ml Q30M PRN IV Hypoglycemia 12/02/17 19:00 01/01/18 08:29 Diltiazem HCl (Cardizem) 30 mg QID ORAL 12/02/17 21:00 01/01/18 08:59 12/17/17 09:14 Heparin Sodium (Porcine) (Heparin 5000 units/ml) 5,000 units EVERY 12 HOURS SUBQ 12/02/17 21:00 01/01/18 08:59 12/16/17 20:23 Ibuprofen (Motrin) 600 mg Q6H PRN ORAL For Pain 12/03/17 14:56 01/02/18 14:55 Levalbuterol HCl (Xopenex) 0.625 mg Q6HRT HHN 12/12/17 19:00 12/17/17 18:59 12/17/17 07:41 Magnesium Hydroxide (Mom) 30 ml DAILYPRN PRN ORAL Constipation 12/11/17 11:48 01/10/18 11:47 12/15/17 01:30 Nitroglycerin (Ntg) 0.4 mg Q5M X 3 DOSES PRN SL Prn Chest Pain 12/02/17 19:00 01/01/18 18:59 Ondansetron HCl (Zofran) 4 mg Q6H PRN IVP Nausea & Vomiting 12/02/17 20:45 01/01/18 08:32 12/16/17 21:12 Promethazine HCl/ Codeine (Phenergan with Codeine) 5 ml Q6H PRN ORAL cough 12/02/17 19:00 01/01/18 18:59 Sucralfate (Carafate) 1 gm FOUR TIMES A DAY ORAL 12/09/17 18:00 01/08/18 17:59 12/17/17 09:14 Tiotropium [place] (Spiriva Inhaler) 1 puff DAILY@1100 INH 12/03/17 11:00 01/01/18 10:59 12/14/17 11:06 Allergies: Coded Allergies: No Known Allergies (Unverified , 08/10/17) Subjective awake, alert, responsive, C/O less SOB Objective Last Vital Signs Date Time Temp Pulse Resp B/P (MAP) Pulse Ox O2 Delivery O2 Flow Rate FiO2 12/17/17 10:01 98.2 12/17/17 09:14 99 147/79 12/17/17 09:00 Nasal Cannula 3.0 12/17/17 08:00 22 99 12/17/17 07:52 32 Laboratory Tests Test 12/17/17 07:25 White Blood Count 6.0 K/UL (4.8-10.8) Red Blood Count 4.91 M/UL (4.20-5.40) Hemoglobin 11.7 G/DL (12.0-16.0) L Hematocrit 38.9 % (37.0-47.0) Mean Corpuscular Volume 79 FL (80-99) L Mean Corpuscular Hemoglobin 23.8 PG (27.0-31.0) L Mean Corpuscular Hemoglobin Concent 30.0 G/DL (32.0-36.0) L Red Cell Distribution Width 17.6 % (11.6-14.8) H Platelet Count 268 K/UL (150-450) Mean Platelet Volume 8.6 FL (6.5-10.1) Neutrophils (%) (Auto) 67.2 % (45.0-75.0) Lymphocytes (%) (Auto) 16.0 % (20.0-45.0) L Monocytes (%) (Auto) 11.8 % (1.0-10.0) H Eosinophils (%) (Auto) 2.2 % (0.0-3.0) Basophils (%) (Auto) 2.8 % (0.0-2.0) H Sodium Level 141 MMOL/L (136-145) Potassium Level 4.4 MMOL/L (3.5-5.1) Chloride Level 99 MMOL/L (98-107) Carbon Dioxide Level 39 MMOL/L (21-32) H Anion Gap 3 mmol/L (5-15) L Blood Urea Nitrogen 19 mg/dL (7-18) H Creatinine 0.6 MG/DL (0.55-1.30) Estimat Glomerular Filtration Rate > 60 mL/min (>60) Glucose Level 108 MG/DL (74-106) H Calcium Level 9.9 MG/DL (8.5-10.1) Intake and Output 12/16/17 12/17/17 19:00 07:00 Intake Total 720 ml 600 ml Balance 720 ml 600 ml Intake Oral 720 ml 600 ml # Voids 1 3 Objective General: No acute distress, awake and alert, Cachexia HEENT: NCAT, sclera anicteric, PERRL, EOMI. Neck: Supple, no significant jugular venous distention, Lungs: Fair inspiratory effort, Decrease air on bases, no Wheeze or Rales. Heart: Regular rate and rhythm, normal S1/S2, no murmurs Abdomen: soft, nontender, nondistended. Normoactive bowel sounds. Extremities: No Cyanosis , clubbing or edema. Neuro: A&O x 3, Able to move all extremities Skin: warm, no rashes or lesions Psych: Normal mood and affect Assessment/Plan Assessment/Plan 1. Shortness of breath. 2. Acute exacerbation of chronic obstructive pulmonary disease. Plan; Neb Tx O2 PT ambulation DC planning for today. Bartolome Ye MD Dec 17, 2017 11:09
--- NOTE | 2017-12-18 11:05 | Discharge Summary ---
Discharge Summary Discharge Summary _ DATE OF ADMISSION: 12/01/2017 DATE OF DISCHARGE: 12/17 REASON FOR ADMISSION: 62 years old female with past medical history of hypertension ,COPD ,presented with increased difficulty breathing. Patient normally uses oxygen at home. She denied fever or chills r, but reported nonproductive cough. She reported using inhaler without much relief. Patient was not cooperative in ED. Vital signs revealed tachycardia, tachypnea, patient required placement on supplemental oxygen 6 L via nasal cannula. Laboratory workup revealed no leukocytosis, stable hemoglobin and hematocrit, Troponin negative. Pro BNP 151. Stable electrolytes and renal parameters. Urine toxicology screen was positive for opiates. Chest x-ray revealed evidence of COPD with hyperinflated lungs. Patient admitted with diagnoses acute on chronic respiratory failure, COPD exacerbation, emphysema. CONSULTANTS: pulmonary Dr. Hoang [facility] COURSE: Patient initially admitted to telemetry floor. Supplemental oxygen titrated to keep pulse oximetry above 92%. Pulmonary toilet provided around the clock and as needed with bronchodilator. Spiriva inhaler was continued. Antitussive provided on as needed basis. Trial of Theophylline started. Patient undergone short pulse of steroids. Blood culture were negative. DVT prophylaxis provided. Blood pressure was managed with calcium channel mainor. Hemoglobin and hematocrit were closely monitored and remained at baseline. Patient was working with physical therapist. Home oxygen was arranged. Taxi was arranged for her to deliver at address , she provided. Discharge instruction provided . Patient was stable for discharge. FINAL DIAGNOSES: Acute on chronic respiratory failure COPD exacerbation Lung emphysema Hypertension DISCHARGE MEDICATIONS: See Medication Reconciliation list. DISCHARGE INSTRUCTIONS: Patient was discharged home . Follow up with primary care provider in one week. I have been assigned to dictate discharge summary for this account. I was not involved in the patient's management. Reta Scott NP Dec 18, 2017 11:05
== END 2017-12-17 18:30 | disposition home or self-care (01) | DRG 140 ==
LOC: EDUNIT# 20:24 → EDBD 20:24 → EMR 21:29 → 2W 22:45 → EDBEDREQ 12-02 00:11 → 2E 12-02 07:29 → 4E 12-02 18:49
DX: J44.1 Chronic obstructive pulmonary disease with (acute) exacerbation (principal); J96.20 Acute and chronic respiratory failure, unspecified whether with hypoxia or hypercapnia; I10 Essential (primary) hypertension; R00.0 Tachycardia, unspecified
CPT/HCPCS: 36415; 71045; 80048; 80053; 80307; 81003; 82553; 82962; 83880; 84484; 85025; 87040; 90686; 93005; 94640; 94664; 94760; 96374; 99285; J2405; J7620